=== PATIENT | female | born 1940 | race Caucasian/White ===

== ENCOUNTER 2018-05-23 12:57 | Emergency (ER) | payer MEDICARE ==
[~2018-05-23] VITALS: Ht 157.5 cm; Wt 73.0 kg
[~2018-05-23 12:57] MED LIST: AMLO10TA6 PO; ASPI325T8 PO; FENO134C PO; FURO20TA3 PO; GLIM4TAB2 PO; HYDR-2769 PO; LOSA100T14 PO; LOSARTAN; METO25TA4 PO; SIMV40TA3 PO; TRAM50TA PO; [UNRECOGNIZED DRUG - CODE] SQ
[2018-05-23 13:00] VITALS: BP 208/80
[2018-05-23 14:29] LABS: BILIRUBIN,URINE NEGATIVE (NEG); CLARITY,URINE CLEAR; COLOR,URINE YELLOW; NITRITE,URINE NEGATIVE (NEG); PH,URINE 6.5; PROTEIN,URINE >=300 mg/dL (NEG-TRACE); UROBILINOGEN,URINE 0.2 mg/dL (0.2 mg/dL)
[2018-05-23 14:38] LABS: RBC,URINE OCC /HPF (0-2); WBC,URINE 20-40 /HPF (0-4)
[2018-05-23 14:39] LABS: BACTERIA,URINE MANY /HPF (0-FEW); SQUAMOUS EPITHELIAL CELL,UR FEW /LPF
[2018-05-23] MEDS ORDERED: CEPHALEXIN 250 MG CAPSULE. PO ONE (14:45)
[2018-05-23] MEDS ORDERED: CEPH-264 PO (15:06)
--- NOTE | 2018-05-23 15:06 | PHYS DOC ---
Past Medical History Past Medical History: Diabetes-Type II, Renal Failure, Stroke, Other Additional Past Medical Histor: CATARACTS,CRAINIOTOMY,CYSTASEAL AND RECTAL SEAL ,D&C,STAGE 3 RENAL FAILURE Past Surgical History: Appendectomy, Cholecystectomy, Hysterectomy, Tonsillectomy, Tubal ligation Additional Past Surgical Histo: OVARIAN CYST, LEFT ROTATOR CUFF, LEFT WRIST BROKEN, BILAT CARPEL TUNNEL Alcohol Use: None Drug Use: None Adult General Chief Complaint Chief Complaint: MECHANICAL FALL HPI HPI Patient is a 77 year old [f__sex] who presents with [] Review of Systems Review of Systems Constitutional: Denies fever or chills [] Eyes: Denies change in visual acuity, redness, or eye pain [] HENT: Denies nasal congestion or sore throat [] Respiratory: Denies cough or shortness of breath [] Cardiovascular: No additional information not addressed in HPI [] GI: Denies abdominal pain, nausea, vomiting, bloody stools or diarrhea [] : Denies dysuria or hematuria [] Musculoskeletal: Denies back pain or joint pain [] Integument: Denies rash or skin lesions [] Neurologic: Denies headache, focal weakness or sensory changes [] Endocrine: Denies polyuria or polydipsia [] All other systems were reviewed and found to be within normal limits, except as documented in this note. Current Medications Current Medications Current Medications Medications (Trade) Dose Ordered Sig/Fredrick Start Time Stop Time Status Last Admin Dose Admin Cephalexin HCl (Keflex) 500 mg 1X ONCE 05/23/18 14:45 05/23/18 14:46 DC Allergies Allergies Allergies Coded Allergies Type Severity Reaction Last Updated Verified KATIE Inhibitors Allergy Severe ANAPHYLATIC SHOCK 11/20/14 Yes cyclosporine Allergy Intermediate Hives 11/21/14 Yes indomethacin Allergy Mild 11/20/14 Yes Physical Exam Physical Exam Constitutional: Well developed, well nourished, no acute distress, non-toxic appearance. [] HENT: Normocephalic, atraumatic, bilateral external ears normal, oropharynx moist, no oral exudates, nose normal. [] Eyes: PERRLA, EOMI, conjunctiva normal, no discharge. [] Neck: Normal range of motion, no tenderness, supple, no stridor. [] Cardiovascular:Heart rate regular rhythm, no murmur [] Lungs & Thorax: Bilateral breath sounds clear to auscultation [] Abdomen: Bowel sounds normal, soft, no tenderness, no masses, no pulsatile masses. [] Skin: Warm, dry, no erythema, no rash. [] Back: No tenderness, no CVA tenderness. [] Extremities: No tenderness, no cyanosis, no clubbing, ROM intact, no edema. [] Neurologic: Alert and oriented X 3, normal motor function, normal sensory function, no focal deficits noted. [] Psychologic: Affect normal, judgement normal, mood normal. [] Current Patient Data Vital Signs Vital Signs Date Time Temp Pulse Resp B/P (MAP) Pulse Ox O2 Delivery O2 Flow Rate FiO2 05/23/18 13:00 98.7 83 16 208/80 (122) 95 Room Air 98.7 Lab Values Laboratory Tests Test 05/23/18 14:00 Urine Collection Type Void Urine Color Yellow Urine Clarity Clear Urine pH 6.5 Urine Specific [place] 1.020 Urine Protein >=300 mg/dL (NEG-TRACE) Urine Glucose (UA) Negative mg/dL (NEG) Urine Ketones (Stick) Negative mg/dL (NEG) Urine Blood Trace (NEG) Urine Nitrite Negative (NEG) Urine Bilirubin Negative (NEG) Urine Urobilinogen Dipstick 0.2 mg/dL (0.2 mg/dL) Urine Leukocyte Esterase Small (NEG) Urine RBC Occ /HPF (0-2) Urine WBC 20-40 /HPF (0-4) Urine Squamous Epithelial Cells Few /LPF Urine Bacteria Many /HPF (0-FEW) EKG EKG [] Radiology/Procedures Radiology/Procedures [] Course & Med Decision Making Course & Med Decision Making Pertinent Labs and Imaging studies reviewed. (See chart for details) [] Dragon Disclaimer Dragon Disclaimer This electronic medical record was generated, in whole or in part, using a voice recognition dictation system. Departure Departure Impression: Primary Impression: Hematoma of scalp Additional Impression: UTI (urinary tract infection) Disposition: 01 HOME, SELF-CARE Condition: STABLE Referrals: MARTHA KELLOGG MD (PCP) Patient Instructions: Fall Prevention and Home Safety, Cmas-li-Zwen, Scalp Hematoma, Urinary Tract Infection, Oujf-lh-Yljs Scripts Cephalexin (KEFLEX) 500 Mg Capsule 500 MG PO BID for 7 Days, #14 CAP Prov: JULIANNE PHOENIX DO 05/23/18 Problem Qualifiers Primary Impression: Hematoma of scalp Encounter type: initial encounter Qualified Codes: S00.03XA - Contusion of scalp, initial encounter Additional Impression: UTI (urinary tract infection) Urinary tract infection type: acute cystitis Hematuria presence: without hematuria Qualified Codes: N30.00 - Acute cystitis without hematuria JULIANNE PHOENIX DO May 23, 2018 15:06
--- NOTE | 2018-05-23 15:07 | RAD ---
CT HEAD AND CERVICAL SPINE WO Indication: PAIN S/P FALL, RT FOREARM CONTUSION Exposure: One or more of the following individualized dose reduction techniques were utilized for this examination: 1. Automated exposure control 2. Adjustment of the mA and/or kV according to patient size 3. Use of iterative reconstruction technique. Comparison: 10/08/2006. Contrast: None HEAD: Posterior fossa is unremarkable. No evidence of acute intracranial hemorrhage or abnormal extra-axial fluid collection. No evidence of mass effect or midline shift. Low-density in the white matter bilaterally, a nonspecific finding, but which is commonly due to chronic small vessel ischemic disease in a patient of this age. Prominence of ventricles and sulci, compatible with involutional change or atrophy. Intracranial arterial calcifications are identified. There is more focal hypoattenuation in the left occipital lobe and the right frontal lobe likely due to encephalomalacia or old infarct, also seen on prior exam. The lens of the left orbit is an abnormal position, appears to be located at the posterior dependent orbit, could indicate gdetachment and displacement. This was not apparent on the prior study of 10/08/2006. Visualized paranasal sinuses and mastoids are clear. No evidence of depressed skull fracture. There is an apparent craniotomy at the posterior occipital bone. There is scalp density and swelling in the right frontal region compatible with a hematoma. Impression: 1. 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 2. Chronic intracranial findings are again seen. 3. No evidence of acute intracranial hemorrhage. 4. Right frontal scalp hematoma. CERVICAL SPINE: The about the distal aspect of C5. C1 ring: Defect at the posterior ring, presumably postsurgical. Cervico-occipital junction: Intact C1-C2 relationship: Within normal limits Fracture: No acute fracture identified. Spondylosis: Degenerative spondylosis with osteophytes. There is neural foraminal stenosis bilaterally, severe at some levels. There is also at least sfjz-bh-[id number] spinal canal stenosis. Alignment: No significant vertebral body subluxation. Facets: No evidence of perched or locked facet. Prevertebral soft tissues: There is a large heterogeneous mass anterior to the cervical spine, to the left of the trachea, only included in the [id number]. This is also apparent on a prior CT neck exam of February 24, 2008. Difficult to compare without prior study for difference in size. The airway is deviated toward the right Lung apices: Clear Impression: 1. Severe degenerative spondylosis. 2. No evidence of acute fracture or subluxation. 3. Large prevertebral and paratracheal mass is partially visualized, was also present to some degree on CT neck of February 24, 2008. This could be arising from the thyroid. 4. Segment of catheter within the cervical spinal canal, was also present on prior CT neck of February 24, 2008. Electronically signed by: Akshat Ham MD (05/23/2018 3:03 PM) [facility]
[2018-05-23] MEDS ORDERED: HYDROcodone/APAP 5/325MG 1 TAB TABLET PO ONE (15:30)
[2018-05-24] MEDS ORDERED: TRAZ150T49 PO (11:28)
[2018-05-24] MEDS ORDERED: CHOL10003 PO (11:28)
[2018-05-24] MEDS ORDERED: LINA5TAB PO (11:28)
[2018-05-24] MEDS ORDERED: ASPI325T11 PO (11:28)
[2018-05-24] MEDS ORDERED: INSU100V13 SQ (11:28)
== END 2018-05-23 15:48 | disposition home or self-care (01) ==
LOC: ER 12:57
DX: S00.03XA Contusion of scalp, initial encounter (principal); N30.00 Acute cystitis without hematuria; E11.22 Type 2 diabetes mellitus with diabetic chronic kidney disease; N18.3 Chronic kidney disease, stage 3 (moderate); Z90.49 Acquired absence of other specified parts of digestive tract; Z90.710 Acquired absence of both cervix and uterus; Z88.8 Allergy status to other drugs, medicaments and biological substances; W19.XXXA Unspecified fall, initial encounter; Y93.89 Activity, other specified; Y92.89 Other specified places as the place of occurrence of the external cause; Y99.8 Other external cause status
CPT/HCPCS: 70450; 72125; 81001; 87086; 99284

== ENCOUNTER 2019-02-11 11:20 | Inpatient (IN) | payer MEDICARE, MEDICAID ==
[~2019-02-11] VITALS: Ht 154.9 cm; Wt 76.2 kg
[2019-02-11] VITALS (24 sets, daily range): BP systolic 80–137; BP diastolic 42–75
[~2019-02-11 11:20] MED LIST changes: -AMLO10TA6 PO; +AMLO10TA8 PO; +ASPI325T11 PO; +BENZ-8 PO; +CEPH-264 PO; +CHOL10003 PO; +FERR325T72 PO; +INSU100V13 SQ; +LINA5TAB PO; +TRAZ150T49 PO
--- NOTE | 2019-02-11 11:56 | PHYS DOC ---
Past Medical History Past Medical History: Diabetes-Type II, Renal Failure, Stroke, Other Additional Past Medical Histor: CATARACTS,CRAINIOTOMY,CYSTYLE AND RECTACYLE,D&C,STAGE 3 RENAL FAILURE Past Surgical History: Appendectomy, Cholecystectomy, Hysterectomy, Tonsillectomy, Tubal ligation Additional Past Surgical Histo: OVARIAN CYST, LEFT ROTATOR CUFF, LEFT WRIST BROKEN, BILAT CARPEL TUNNEL Alcohol Use: None Drug Use: None Adult General Chief Complaint Chief Complaint: shortness of breath HPI HPI Patient is a 78 year old [place] [facility] on 2 L constant oxygen who presents via EMS because of shortness of breath and hypoxia. Patient had cough and shortness of breath for the last several days and treated for pneumonia jail worsening her condition since last night. Patient had O2 sat of 60% on 5 L of oxygen at arrival of EMS and complaining of shortness of breath. Patient was started on CPAP and brought in to ER. Patient was very pale at arrival to ER without pulse and CPR was started about 1121 at arrival to ER. Review of Systems Review of Systems Unable to obtain because of CPR in progress Current Medications Current Medications Allergies Allergies Allergies Coded Allergies Type Severity Reaction Last Updated Verified KATIE Inhibitors Allergy Severe ANAPHYLATIC SHOCK 11/20/14 Yes cyclosporine Allergy Intermediate Hives 11/21/14 Yes indomethacin Allergy Intermediate 05/24/18 Yes Physical Exam Physical Exam Constitutional: Unresponsive CPR in progress HENT: Atraumatic. Eyes: pupil without reaction. Neck: Atraumatic Cardiovascular: CPR in progress, no spontaneous cardiac activity without CPR Lungs & Thorax: No spontaneous respiration. Abdomen:Atraumatic. Extremities: Atraumatic, no spontaneous pulses without CPR Neurologic: Unresponsive. Psychologic: Unresponsive. Current Patient Data Vital Signs Lab Values Laboratory Tests Test 02/11/19 11:29 Glucose (Fingerstick) 282 mg/dL (70-99) H EKG EKG EKG at 1141 after successful CPR showed sinus tachycardia at rate of 1:30, abnormal left axis deviation, left anterior fascicular block, right bundle- branch block, LVH, inverted T in lateral leads that is new compared to EKG alvaro ed 05/24/2018 Radiology/Procedures Radiology/Procedures [][facility] [address] [place], [place] [id number] IMAGING REPORT Signed PATIENT: BEN MILLER David ACCOUNT: [id number] : 1940 LOCATION: ER AGE: 78 SEX: F EXAM STATUS: REG ER ORD. PHYSICIAN: BETINA SAMAYOA MD REASON: cardiorespiratory arrest PROCEDURE: PORTABLE CHEST 1V Indication:Cardiorespiratory arrest. TECHNIQUE:Portable AP chest X-ray COMPARISON: 05/26/2018. FINDINGS: ET tube is seen with its tip in the proximal right mainstem bronchus. NG tube is seen with its tip not visualized presumably in the stomach. Heart is normal in size. Diffuse interstitial opacities are seen. There opacity seen in the right upper lobe and right perihilar lung. No pneumothorax or large pleural effusion. Visualized bony thorax within normal limits. IMPRESSION: 1. Tip of the ET tube is in the right mainstem bronchus and should be withdrawn by approximately 4 cm. 2. Opacities in the right upper lobe and right perihilar lung may be secondary to pneumonia, aspiration or atelectasis. 3. Interstitial opacities diffusely suggest tissue pulmonary edema. Critical findings were identified on 02/11/2019 12:06 PM, read back and verified with Dr. Samayoa on 02/11/2019 12:[address] David Martinez DO. Electronically signed by: David Martinez DO (02/11/2019 12:09 PM) [facility] DICTATED and SIGNED BY: DAVID MARTINEZ DO DATE: 02/11/19 120 Course & Med Decision Making Course & Med Decision Making Pertinent Labs and Imaging studies reviewed. (See chart for details) Evaluation of patient in ER showed 78-year-old female patient from jail on 2 L of oxygen and complaint diagnosis of pneumonia on antibiotic brought in by EMS at 1121 because of hypoxia and respiratory distress. Patient was pulseless at arrival to ER and CPR was restarted. Patient had DNR form according to EMR. Patient's daughter who has DPOA was in ER at arrival of patient and requesting continue CPR for couple more minutes without intubation in several time with checking with her. Patient did not have a spontaneous pulse without CPR and treated with 3 doses of epinephrine and chest compression and facial mask with bagging and finally was intubated at 1135 and had pulse at 1137. Patient treated with IV fluids and antibiotic for code sepsis. Patient had gradual decrease of heart disease from 130 to 70s with a stable blood pressure. Patient started to have respiration activity and Versed drip was started. CT angio of chest and head ct was postponed because of medical condition.Patient requiring admission for further evaluation and treatment. Discussed with Dr. Christine who is in agreement with admission. Discussed findings and plan with patient and family, who acknowledge understanding and agreement. Dragon Disclaimer Dragon Disclaimer This electronic medical record was generated, in whole or in part, using a voice recognition dictation system. Departure Departure Impression: Primary Impression: Cardiorespiratory arrest Additional Impressions: Severe sepsis HCAP (healthcare-associated pneumonia) Pulmonary edema Renal insufficiency Uncontrolled diabetes mellitus Metabolic acidosis with respiratory acidosis Anemia Hypoalbuminemia Elevated troponin I level Disposition: ADMITTED INPATIENT (at 1153) Admitting Physician: SEFERINO (Dr Christine accepted admission at 1152) Condition: CRITICAL Referrals: MARTHA KELLOGG MD (PCP) Critical Care Time Critical care time was 90 minutes exclusive of procedures. Date and Time of Reassessment Date: Feb 11, 2019 Time: 13:09 Fluid Challenge Is the fluid challenge complet: Yes IBW Target Volume Used: Yes BMI > 30: No Vital Signs Vital Signs: Temperature Source: Rectal Respirations Respiratory Pattern: Normal Cardiovascular Pulse Rhythm: Regular Heart: Nml rate, reg. rhythm Lung Sounds Breath Sounds: Coarse, Rhonchi Capillary Refil Capillary Refill: Rt Hand < 3 seconds Peripheral Pulse Pulse Location: Femoral Pulse Strength: Normal (2+) Pulse Assessment Method: NIBP Intubation Procedure Intubation Procedure Intub Indication: Respiratory failure Consent: Unable to give consent due to emergent nature. Medications Used: see nursing note Procedure: The patient was placed in the appropriate position. Intubation was performed visualization of vocal cord and 7.5 ET tube was placed at 1135 and placement was confirmed with change of color of CO2 detector and bilateral chest rise tube was secured with device.. Initial confirmation of placement included bilateral breath sounds, tube fogging, adequate chest rise, adequate pulse oximetry reading. A chest x-ray to verify correct placement of the tube showed ET tube in right bronchus and it was removed 3 cm without problem.The patient tolerated the procedure well. Complications: none. Problem Qualifiers Additional Impressions: Pulmonary edema Chronicity: acute Qualified Codes: J81.0 - Acute pulmonary edema Uncontrolled diabetes mellitus Diabetes mellitus type: other specified (including RUTH) Glycemic state: with hyperglycemia Qualified Codes: E13.65 - Other specified diabetes mellitus with hyperglycemia Anemia Anemia type: unspecified type Qualified Codes: D64.9 - Anemia, unspecified BETINA SAMAYOA MD Feb 11, 2019 11:56
[2019-02-11 12:00] LABS: BASO # 0.1 x10^3/uL (0.0-0.2); BASO % 1 % (0-3); EOS # 0.2 x10^3/uL (0.0-0.7); EOS % 2 % (0-3); HEMATOCRIT 33.6 % (36.0-47.0); HEMOGLOBIN 10.3 g/dL (12.0-15.5); LYMPH # 4.4 x10^3/uL (1.0-4.8); LYMPH % 40 % (24-48); MEAN CORPUSCULAR HEMOGLOBIN 29 pg (25-35); MEAN CORPUSCULAR HGB CONC 31 g/dL (31-37); MEAN CORPUSCULAR VOLUME 94 fL (79-100); MONO # 0.4 x10^3/uL (0.0-1.1); MONO % 3 % (0-9); NEUT # 5.9 x10^3/uL (1.8-7.7); NEUT % 54 % (31-73); PLATELET COUNT 253 x10^3/uL (140-400); RED CELL DISTRIBUTION WIDTH 15.4 % (11.5-14.5)
[2019-02-11] MEDS ORDERED: MIDAZOLAM 100mg/100ml NS BAG 100 ML IV ONE (12:00)
[2019-02-11] MEDS: VANCOMYCIN 1.5 GM in IV NORMAL SALINE 500ML BAG 500 ML IV ONE ×2 (12:05→13:05)
[2019-02-11 12:07] LABS: CALCIUM 8.7 mg/dL (8.5-10.1); CREATININE 2.2 mg/dL (0.6-1.0); GFR 21.7; POTASSIUM 4.4 mmol/L (3.5-5.1); PROTHROMBIN TIME PATIENT 15.1 SEC (11.7-14.0)
[2019-02-11 12:09] LABS: BASE EXCESS ABG -18 mmol/L (-3-3); HCO3 ABG 13 mmol/L (21-28); PCO2 ABG 50 mmHg (35-46); PO2 ABG 234 mmHg (65-108); SAT O2 ABG 99 % (92-99)
--- NOTE | 2019-02-11 12:12 | RAD ---
Indication:Cardiorespiratory arrest. TECHNIQUE:Portable AP chest X-ray COMPARISON: 05/26/2018. FINDINGS: ET tube is seen with its tip in the proximal right mainstem bronchus. NG tube is seen with its tip not visualized presumably in the stomach. Heart is normal in size. Diffuse interstitial opacities are seen. There opacity seen in the right upper lobe and right perihilar lung. No pneumothorax or large pleural effusion. Visualized bony thorax within normal limits. IMPRESSION: 1. Tip of the ET tube is in the right mainstem bronchus and should be withdrawn by approximately 4 cm. 2. Opacities in the right upper lobe and right perihilar lung may be secondary to pneumonia, aspiration or atelectasis. 3. Interstitial opacities diffusely suggest tissue pulmonary edema. Critical findings were identified on 02/11/2019 12:06 PM, read back and verified with Dr. Lechuga on 02/11/2019 12:[address] David Martinez DO. Electronically signed by: David Martinez DO (02/11/2019 12:09 PM) [facility]
[2019-02-11 12:13] LABS: ALBUMIN 2.8 g/dL (3.4-5.0); ALBUMIN/GLOBULIN RATIO 0.8 (1.0-1.7); MAGNESIUM 2.3 mg/dL (1.8-2.4); TOTAL BILIRUBIN 0.3 mg/dL (0.2-1.0); TOTAL PROTEIN 6.3 g/dL (6.4-8.2)
[2019-02-11] MEDS ORDERED: SODIUM BICARB ADULT 8.4% 50 MEQ/50 ML DISP.SYRIN. IV ONE (12:15)
[2019-02-11] MEDS ORDERED: IV NORMAL SALINE 1000ML BAG 1,000 ML IV ONE ×2 (12:15)
[2019-02-11 12:16] LABS: D-DIMER 3.82 ug/mlFEU (0.00-0.50)
[2019-02-11] MEDS ORDERED: IV NORMAL SALINE 1000ML BAG 1,000 ML IV SCH (12:23)
[2019-02-11 12:29] LABS: FIO2 ABG 100
[2019-02-11] MEDS ORDERED: PIPERACILLIN/TAZOBACTAM 3.375 GM in IV NORMAL SALINE 50ML 50 ML IV ONE (12:30)
[2019-02-11] MEDS: IV NORMAL SALINE 1000ML BAG 1,000 ML IV ONE ×2 (12:45→13:54)
--- NOTE | 2019-02-11 13:10 | PDOC1 ---
History and Physical Date of Admission Date of Admission DATE: 02/11/19 TIME: 13:03 Identification/Chief Complaint Chief Complaint Post arrest Source Source: Caregiver, Chart review History of Present Illness History of Present Illness Ms Pierre is a 78yo F w/ PMHx CKD3, DM2, HTN, H/o prior stroke, anemia, legally blind who presented to ED with acute hypoxia and en-route was found pulseless with PEA on her initial rhythm strip. Patient had O2 sat of 60% on 5 L of oxygen at arrival of EMS and had been complaining of shortness of breath at SNF. Patient was started on CPAP en-route by EMS. Patient was very pale at arrival to ED without pulse and CPR was started about 1121 at arrival to ER. (transit time prior to arrival was approximately 10 minutes). Per SNF she is full code and her daughter instructed ED to begin CPR and after CPR and 3 rounds of epinephrine there was ROSC and patient underwent intubation in ED. 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 Patient treated with IV fluids and antibiotic for sepsis. Patient started to have respiration activity and Versed drip was started. CT angio of chest and head CT was initially postponed because of medical condition. Initial ABG was 7.01/50/239, lactate 8.3. Trop 0.107, BNP 59938, INR 1.2, d dimer 3.82. Hb 10.3, no leukocytosis. Cr. 2.2, BUN 28, glucose 390. CXR with RUL infiltrate and pulmonary edema. Discussed bedside with daughter, Samia patient is full code and to initiate hypothermia protocol. I supervised RIJ CVC placement by WORD PROCESSOR OPERATOR. Past Medical History Cardiovascular: HTN, Hyperlipidemia Pulmonary: No pertinent hx CENTRAL NERVOUS SYSTEM: CVA, TIA GI: No pertinent hx Heme/Onc: No pertinent hx Hepatobiliary: No pertinent hx Psych: No pertinent hx Rheumatologic: No pertinent hx Infectious disease: No pertinent hx Renal/: No pertinent hx Endocrine: Diabetes, Other Past Surgical History Past Surgical History: Appendectomy, Arthroscopy, Cholecystectomy, Cataract Removal, Total knee replacement, Tubal Ligation, Tonsillectomy, Hysterectomy, Other Family History Family History: Heart Disease Social History Smoke: No ALCOHOL: none Drugs: None Current Problem List Problem List Problems Medical Problems: (1) Cardiorespiratory arrest Status: Acute Current Medications Current Medications Current Medications Midazolam HCl 100 ml @ 0 mls/hr 1X ONCE IV Last administered on 02/11/19at 12:24; Start 02/11/19 at 12:00; Stop 02/11/19 at 12:01; Status DC Sodium Bicarbonate (Sodium Bicarb Adult 8.4% Syr) 100 meq 1X ONCE IV Last administered on 02/11/19at 12:24; Start 02/11/19 at 12:15; Stop 02/11/19 at 12:22; Status DC Piperacillin Sod/ Tazobactam Sod 3.375 gm/Sodium Chloride 50 ml @ 100 mls/hr 1X ONCE IV ; Start 02/11/19 at 12:30; Stop 02/11/19 at 12:59; Status DC Vancomycin HCl 1.5 gm/Sodium Chloride 500 ml @ 250 mls/hr 1X ONCE IV ; Start 02/11/19 at 12:30; Stop 02/11/19 at 14:29 Sodium Chloride 1,000 ml @ 1,000 mls/hr 1X ONCE IV Last administered on 02/11/19at 12:29; Start 02/11/19 at 12:15; Stop 02/11/19 at 13:14 Sodium Chloride 1,000 ml @ 1,000 mls/hr 1X ONCE IV Last administered on 02/11/19at 12:29; Start 02/11/19 at 12:15; Stop 02/11/19 at 13:14 Sodium Chloride 1,000 ml @ 150 mls/hr Q6H40M IV ; Start 02/11/19 at 12:23; Stop 02/12/19 at 12:22 Sodium Chloride 1,000 ml @ 1,000 mls/hr 1X ONCE IV ; Start 02/11/19 at 12:45; Stop 02/11/19 at 13:44 Active Scripts Active Feosol (Ferrous Sulfate) 325 Mg Tablet 325 Mg PO [id number] 30 Days Benzonatate 100 Mg Capsule 100 Mg PO [id number] 7 Days Amlodipine Besylate 10 Mg Tablet 10 Mg PO DAILY 30 Days Reported Tradjenta (Linagliptin) 5 Mg Tablet 5 Mg PO DAILY Vitamin D3 (Cholecalciferol (Vitamin D3)) 1,000 Unit Tablet 1 Tab PO DAILY Trazodone Hcl 150 Mg Tablet 150 Mg PO HS Aspirin Ec (Aspirin) 325 Mg Tablet.dr 1 Tab PO DAILY Metoprolol Tartrate 25 Mg Tablet 1 Tab PO BID NEW MEDICATION BEGINNING 11/21/2014 PM DOSE MONITOR BLOOD PRESSURE DAILY Losartan Potassium 100 Mg Tablet 1 Tab PO DAILY Simvastatin 40 Mg Tablet 40 Mg PO DAILY Hydrocodone-Apap 10-325 (Hydrocodone Bit/Acetaminophen) 1 Each Tablet 1 Tab PO Q8HRS PRN Allergies Allergies: Coded Allergies: KATIE Inhibitors (Verified Allergy, Severe, ANAPHYLATIC SHOCK, 11/20/14) cyclosporine (Verified Allergy, Intermediate, Hives, 11/21/14) indomethacin (Verified Allergy, Intermediate, 05/24/18) ROS Review of System Unable to obtain ROS due to intubation, sedation Physical Exam General: No acute distress, Other (Sedated, intubated) HEENT: Atraumatic, PERRLA (Pupils sluggish), EOMI, Mucous membr. moist/pink, Other (Positive gag) Lungs: Other (Rhonchi on right, bibasilar crackles, otherwise ventilatory b reath sounds) Heart: S1S2, RRR, no gallops, no murmurs Abdomen: Normal bowel sounds, Soft, No tenderness, No hepatosplenomegaly, No masses Rectal Exam: not examined Extremities: No clubbing, No cyanosis, No edema, Normal pulses, No tenderness/swelling Skin: No rashes, No breakdown, No significant lesion Neuro: Normal tone, Reflexes 2+ Psych/Mental Status: Other (Sedated) Vitals Vitals Vital Signs Date Time Temp Pulse Resp B/P (MAP) Pulse Ox O2 Delivery O2 Flow Rate FiO2 02/11/19 12:04 95.9 120 100 Bag Valve Mask 95.9 Labs Labs Laboratory Tests Test 02/11/19 11:29 02/11/19 11:50 02/11/19 12:00 Glucose (Fingerstick) 282 mg/dL (70-99) White Blood Count 11.0 x10^3/uL (4.0-11.0) Red Blood Count 3.60 x10^6/uL (3.50-5.40) Hemoglobin 10.3 g/dL (12.0-15.5) Hematocrit 33.6 % (36.0-47.0) Mean Corpuscular Volume 94 fL (79-100) Mean Corpuscular Hemoglobin 29 pg (25-35) Mean Corpuscular Hemoglobin Concent 31 g/dL (31-37) Red Cell Distribution Width 15.4 % (11.5-14.5) Platelet Count 253 x10^3/uL (140-400) Neutrophils (%) (Auto) 54 % (31-73) Lymphocytes (%) (Auto) 40 % (24-48) Monocytes (%) (Auto) 3 % (0-9) Eosinophils (%) (Auto) 2 % (0-3) Basophils (%) (Auto) 1 % (0-3) Neutrophils # (Auto) 5.9 x10^3/uL (1.8-7.7) Lymphocytes # (Auto) 4.4 x10^3/uL (1.0-4.8) Monocytes # (Auto) 0.4 x10^3/uL (0.0-1.1) Eosinophils # (Auto) 0.2 x10^3/uL (0.0-0.7) Basophils # (Auto) 0.1 x10^3/uL (0.0-0.2) Prothrombin Time 15.1 SEC (11.7-14.0) Prothromb Time International Ratio 1.2 (0.8-1.1) D-Dimer (Pam) 3.82 ug/mlFEU (0.00-0.50) Sodium Level 141 mmol/L (136-145) Potassium Level 4.4 mmol/L (3.5-5.1) Chloride Level 108 mmol/L (98-107) Carbon Dioxide Level 17 mmol/L (21-32) Anion Gap 16 (6-14) Blood Urea Nitrogen 28 mg/dL (7-20) Creatinine 2.2 mg/dL (0.6-1.0) Estimated GFR (Cockcroft-Gault) 21.7 BUN/Creatinine Ratio 13 (6-20) Glucose Level 390 mg/dL (70-99) Lactic Acid Level 8.3 mmol/L (0.4-2.0) Calcium Level 8.7 mg/dL (8.5-10.1) Magnesium Level 2.3 mg/dL (1.8-2.4) Total Bilirubin 0.3 mg/dL (0.2-1.0) Aspartate Amino Transf (AST/SGOT) 46 U/L (15-37) Alanine Aminotransferase (ALT/SGPT) 33 U/L (14-59) Alkaline Phosphatase 136 U/L (46-116) Creatine Kinase 99 U/L (26-192) Troponin I Quantitative 0.107 ng/mL (0.000-0.055) AD-Jyz-A-Type Natriuretic Peptide 39787 pg/mL (0-449) Total Protein 6.3 g/dL (6.4-8.2) Albumin 2.8 g/dL (3.4-5.0) Albumin/Globulin Ratio 0.8 (1.0-1.7) Lipase 168 U/L (73-393) O2 Saturation 99 % (92-99) Arterial Blood pH 7.01 (7.35-7.45) Arterial Blood pCO2 at Patient Temp 50 mmHg (35-46) Arterial Blood pO2 at Patient Temp 234 mmHg (65-108) Arterial Blood HCO3 13 mmol/L (21-28) Arterial Blood Base Excess -18 mmol/L (-3-3) FiO2 100 Laboratory Tests Test 02/11/19 11:29 02/11/19 11:50 02/11/19 12:00 Glucose (Fingerstick) 282 mg/dL (70-99) White Blood Count 11.0 x10^3/uL (4.0-11.0) Red Blood Count 3.60 x10^6/uL (3.50-5.40) Hemoglobin 10.3 g/dL (12.0-15.5) Hematocrit 33.6 % (36.0-47.0) Mean Corpuscular Volume 94 fL (79-100) Mean Corpuscular Hemoglobin 29 pg (25-35) Mean Corpuscular Hemoglobin Concent 31 g/dL (31-37) Red Cell Distribution Width 15.4 % (11.5-14.5) Platelet Count 253 x10^3/uL (140-400) Neutrophils (%) (Auto) 54 % (31-73) Lymphocytes (%) (Auto) 40 % (24-48) Monocytes (%) (Auto) 3 % (0-9) Eosinophils (%) (Auto) 2 % (0-3) Basophils (%) (Auto) 1 % (0-3) Neutrophils # (Auto) 5.9 x10^3/uL (1.8-7.7) Lymphocytes # (Auto) 4.4 x10^3/uL (1.0-4.8) Monocytes # (Auto) 0.4 x10^3/uL (0.0-1.1) Eosinophils # (Auto) 0.2 x10^3/uL (0.0-0.7) Basophils # (Auto) 0.1 x10^3/uL (0.0-0.2) Prothrombin Time 15.1 SEC (11.7-14.0) Prothromb Time International Ratio 1.2 (0.8-1.1) D-Dimer (Pam) 3.82 ug/mlFEU (0.00-0.50) Sodium Level 141 mmol/L (136-145) Potassium Level 4.4 mmol/L (3.5-5.1) Chloride Level 108 mmol/L (98-107) Carbon Dioxide Level 17 mmol/L (21-32) Anion Gap 16 (6-14) Blood Urea Nitrogen 28 mg/dL (7-20) Creatinine 2.2 mg/dL (0.6-1.0) Estimated GFR (Cockcroft-Gault) 21.7 BUN/Creatinine Ratio 13 (6-20) Glucose Level 390 mg/dL (70-99) Lactic Acid Level 8.3 mmol/L (0.4-2.0) Calcium Level 8.7 mg/dL (8.5-10.1) Magnesium Level 2.3 mg/dL (1.8-2.4) Total Bilirubin 0.3 mg/dL (0.2-1.0) Aspartate Amino Transf (AST/SGOT) 46 U/L (15-37) Alanine Aminotransferase (ALT/SGPT) 33 U/L (14-59) Alkaline Phosphatase 136 U/L (46-116) Creatine Kinase 99 U/L (26-192) Troponin I Quantitative 0.107 ng/mL (0.000-0.055) EP-Llx-H-Type Natriuretic Peptide 13545 pg/mL (0-449) Total Protein 6.3 g/dL (6.4-8.2) Albumin 2.8 g/dL (3.4-5.0) Albumin/Globulin Ratio 0.8 (1.0-1.7) Lipase 168 U/L (73-393) O2 Saturation 99 % (92-99) Arterial Blood pH 7.01 (7.35-7.45) Arterial Blood pCO2 at Patient Temp 50 mmHg (35-46) Arterial Blood pO2 at Patient Temp 234 mmHg (65-108) Arterial Blood HCO3 13 mmol/L (21-28) Arterial Blood Base Excess -18 mmol/L (-3-3) FiO2 [address] - No pathologic extra-axial or intra-axial fluid collection. Stable encephalomalacia in the left cerebellar hemisphere with compensatory dilation of the occipital horn of the left lateral ventricle. Stable encephalomalacia in the right frontal lobe likely old infarct. No acute intracranial bleed. Suboccipital craniotomy noted. No focal loss of pearson-white differentiation. Orbits are within normal limits. No suspicious calvarial lesion. Visualized paranasal sinuses and mastoid air cells are clear. IMPRESSION: 1. No acute intracranial bleed. 2. Stable encephalomalacia likely from prior infarct in the left cerebellar hemisphere and right frontal lobe. If concern for acute ischemic stroke is high, please consider MRI brain. CXR - 1. Tip of the ET tube is in the right mainstem bronchus and should be withdrawn by approximately 4 cm. 2. Opacities in the right upper lobe and right perihilar lung may be secondary to pneumonia, aspiration or atelectasis. 3. Interstitial opacities diffusely suggest tissue pulmonary edema. VTE Prophylaxis Ordered VTE Prophylaxis Devices: Yes VTE Pharmacological Prophylaxi: Yes Assessment/Plan Assessment/Plan A/P: Cardiorespiratory arrest - s/p CPR and 3 rounds epinephrine. Likely this was a hypoxic arrest based on history, though PE has not been ruled out. Will d/w pulmonology the utility of further investigation. Treat pneumonia as well Severe sepsis - likely 2/2 HCAP with right sided pneumonia, patient already under treatment. Received 2L NSS in ED. Will bolus with albumin prn to avoid fluid overload. Levophed for BP support, central line in place HCAP (healthcare-associated pneumonia) - vancomycin and zosyn for now, will consult pharmacy given her CKD Acute hypoxic respiratory failure - likely 2/2 pneumonia. Will consult pulmonology to assist in vent management. HOLD OFF ON FURTHER IVF for now Pulmonary edema - likely from CPR, will monitor with serial chest x-ray. 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 Known to nephrology service Metabolic acidosis with respiratory acidosis - PCO2 50 not bad, will correct with vent, her metabolic likely 2/2 lactic acidosis from prolonged hypoxia en- route and prior to admit Elevated troponin I level - likely demand 2/2 hypoxia, will trend. Consulted cardiology for post arrest Acute metabolic encephalopathy - likely also some toxic from sepsis. She will be sedated on hypothermia protocol, I have informed family that no meaningful neuro exam will be available until she completes the protocol DM2 with hyperglycemia - will place on q4 hours POC and sliding scale HTN - likely etiology of her kidney disease, will monitor closely. H/O stroke - left cerebellar encephalomalacia Falls - likely 2/2 blindness. Will have PT/OT evaluate when and if she recovers Legally blind - previously existing Normocytic anemia - iron deficiency per history Moderate malnutrition - Hypoalbuminemia. will need early nutrition FEN - NPO PPX - heparin FULL CODE for now Dispo - ICU for post-arrest care. I have discussed with family in depth as her GCS is low and she did not awaken and she was able to have CT head negative for acute bleed or acute CVA that her overall prognosis is poor and that if they wish to continue care she will require hypothermia protocol. 54 minutes critical care time LAWRENCE SIMPSON MD Feb 11, 2019 13:10
--- NOTE | 2019-02-11 13:30 | RAD ---
PQRS Compliance statement: One or more of the following individualized dose reduction techniques were utilized for this examination: 1. Automated exposure control. 2. Adjustment of the mA and/or kV according to patient size. 3. Use of iterative reconstruction technique. Indication:Cardiac respiratory arrest. TECHNIQUE: CT head without IV contrast COMPARISON: 05/23/2018. FINDINGS: No pathologic extra-axial or intra-axial fluid collection. Stable encephalomalacia in the left cerebellar hemisphere with compensatory dilation of the occipital horn of the left lateral ventricle. Stable encephalomalacia in the right frontal lobe likely old infarct. No acute intracranial bleed. Suboccipital craniotomy noted. No focal loss of pearson-white differentiation. Orbits are within normal limits. No suspicious calvarial lesion. Visualized paranasal sinuses and mastoid air cells are clear. IMPRESSION: 1. No acute intracranial bleed. 2. Stable encephalomalacia likely from prior infarct in the left cerebellar hemisphere and right frontal lobe. If concern for acute ischemic stroke is high, please consider MRI brain. Electronically signed by: Davdi Martinez DO (02/11/2019 1:28 PM) [facility]
[2019-02-11] MEDS ORDERED: NOREPINEPHRIN 8MG/250ML PREMIX 250 ML IV PRN (13:45)
[2019-02-11] MEDS ORDERED: VASOPRESSIN 40 UNIT in IV DEXTROSE 5% 100ML 100 ML IV PRN (13:45)
[2019-02-11] MEDS ORDERED: EPINEPHrine SYRINGE 1 MG/10 ML SYRINGE ONE (14:00)
[2019-02-11] MEDS ORDERED: SODIUM BICARB ADULT 8.4% 50 MEQ/50 ML DISP.SYRIN. ONE (14:00)
--- NOTE | 2019-02-11 14:40 | PDOC2 ---
CARDIOLOGY CONSULT NOTE CHEIF COMPLAINT: Cardiac arrest HPI: History obtained mostly from chart review and discussion with other physicians and ER team and nursing 78-year-old woman brought to the ER due to respiratory failure. Upon arrival was noted to have a pulseless electrical activity. She underwent CPR for a prolonged period of time and ultimately return of spontaneous circulation occurred. Micah Nelson was asked to evaluate her for her cardiac arrest Patient was evaluated in May 2018 for atypical chest pain and at that time had a negative echo and my cardial perfusion study. Initial working diagnosis thus far is of a pulmonary etiology possibly due to pneumonia. PMHX: Hypertension, diabetes, CVA Prior history of elevated troponin for which cardiac testing did not reveal any significant ischemia SOCHX: No alcohol, tobacco or illicit drug use. This is per chart review FAMHX: Noncontributory CURRENT MEDS: Current Medications Medications (Trade) Dose Ordered Sig/Fredrick Route PRN Reason Start Time Stop Time Status Last Admin Dose Admin Midazolam HCl 100 ml @ 0 mls/hr 1X ONCE IV 02/11/19 12:00 02/11/19 12:01 DC 02/11/19 12:24 Sodium Bicarbonate (Sodium Bicarb Adult 8.4% Syr) 100 meq 1X ONCE IV 02/11/19 12:15 02/11/19 12:22 DC 02/11/19 12:24 Piperacillin Sod/ Tazobactam Sod 3.375 gm/Sodium Chloride 50 ml @ 100 mls/hr 1X ONCE IV 02/11/19 12:30 02/11/19 12:59 DC 02/11/19 13:50 Vancomycin HCl 1.5 gm/Sodium Chloride 500 ml @ 250 mls/hr 1X ONCE IV 02/11/19 12:30 02/11/19 14:29 02/11/19 13:48 Sodium Chloride 1,000 ml @ 1,000 mls/hr 1X ONCE IV 02/11/19 12:15 02/11/19 13:14 DC 02/11/19 12:29 Sodium Chloride 1,000 ml @ 1,000 mls/hr 1X ONCE IV 02/11/19 12:15 02/11/19 13:14 DC 02/11/19 12:29 Sodium Chloride 1,000 ml @ 150 mls/hr Q6H40M IV 02/11/19 12:23 02/12/19 12:22 02/11/19 13:50 Sodium Chloride 1,000 ml @ 1,000 mls/hr 1X ONCE IV 02/11/19 12:45 02/11/19 13:44 DC 02/11/19 13:54 ALLERGIES: Allergies Coded Allergies Type Severity Reaction Last Updated Verified KATIE Inhibitors Allergy Severe ANAPHYLATIC SHOCK 11/20/14 Yes cyclosporine Allergy Intermediate Hives 11/21/14 Yes indomethacin Allergy Intermediate 05/24/18 Yes ROS: Unable to be obtained due to the patient being intubated PHYSICAL EXAM: Vital Signs/I&O: Vital Signs Date Time Temp Pulse Resp B/P (MAP) Pulse Ox O2 Delivery O2 Flow Rate FiO2 02/11/19 13:35 96 Ventilator 02/11/19 12:04 95.9 120 95.9 Physical Exam: She sedated and nonresponsive Normal heart tones Image breath sounds bilaterally Soft abdomen No edema with 2+ pulses DIAGNOSTIC TESTING: EKG demonstrates sinus tachycardia with PVCs, telemetry reveals sinus rhythm Lactate is elevated at 8.0 She has acute renal sufficiency Minimal troponin elevation noted Echocardiogram and stress testing in May 2018 were unremarkable. Lab Laboratory Tests Test 02/11/19 11:29 02/11/19 11:50 02/11/19 12:00 Glucose (Fingerstick) 282 mg/dL (70-99) H White Blood Count 11.0 x10^3/uL (4.0-11.0) Red Blood Count 3.60 x10^6/uL (3.50-5.40) Hemoglobin 10.3 g/dL (12.0-15.5) L Hematocrit 33.6 % (36.0-47.0) L Mean Corpuscular Volume 94 fL (79-100) Mean Corpuscular Hemoglobin 29 pg (25-35) Mean Corpuscular Hemoglobin Concent 31 g/dL (31-37) Red Cell Distribution Width 15.4 % (11.5-14.5) H Platelet Count 253 x10^3/uL (140-400) Neutrophils (%) (Auto) 54 % (31-73) Lymphocytes (%) (Auto) 40 % (24-48) Monocytes (%) (Auto) 3 % (0-9) Eosinophils (%) (Auto) 2 % (0-3) Basophils (%) (Auto) 1 % (0-3) Neutrophils # (Auto) 5.9 x10^3/uL (1.8-7.7) Lymphocytes # (Auto) 4.4 x10^3/uL (1.0-4.8) Monocytes # (Auto) 0.4 x10^3/uL (0.0-1.1) Eosinophils # (Auto) 0.2 x10^3/uL (0.0-0.7) Basophils # (Auto) 0.1 x10^3/uL (0.0-0.2) Prothrombin Time 15.1 SEC (11.7-14.0) H Prothromb Time International Ratio 1.2 (0.8-1.1) H D-Dimer (Pam) 3.82 ug/mlFEU (0.00-0.50) H Sodium Level 141 mmol/L (136-145) Potassium Level 4.4 mmol/L (3.5-5.1) Chloride Level 108 mmol/L (98-107) H Carbon Dioxide Level 17 mmol/L (21-32) L Anion Gap 16 (6-14) H Blood Urea Nitrogen 28 mg/dL (7-20) H Creatinine 2.2 mg/dL (0.6-1.0) H Estimated GFR (Cockcroft-Gault) 21.7 BUN/Creatinine Ratio 13 (6-20) Glucose Level 390 mg/dL (70-99) H Lactic Acid Level 8.3 mmol/L (0.4-2.0) *H Calcium Level 8.7 mg/dL (8.5-10.1) Total Bilirubin 0.3 mg/dL (0.2-1.0) Aspartate Amino Transf (AST/SGOT) 46 U/L (15-37) H Alkaline Phosphatase 136 U/L (46-116) H Creatine Kinase 99 U/L (26-192) Total Protein 6.3 g/dL (6.4-8.2) L Albumin 2.8 g/dL (3.4-5.0) L Albumin/Globulin Ratio 0.8 (1.0-1.7) L Lipase 168 U/L (73-393) O2 Saturation 99 % (92-99) Arterial Blood pH 7.01 (7.35-7.45) *L Arterial Blood pCO2 at Patient Temp 50 mmHg (35-46) H Arterial Blood pO2 at Patient Temp 234 mmHg (65-108) H Arterial Blood HCO3 13 mmol/L (21-28) L Arterial Blood Base Excess -18 mmol/L (-3-3) L FiO2 100 Laboratory Tests 02/11/19 11:50 ASSESSMENT: 1. Cardiac arrest likely secondary to hypoxia in the setting of pneumonia and/or other pulmonary etiology 2. Hypertension currently without any need for pressors or antihypertensives 3. History of hypertension and CVA and diabetes PLAN: 1. Supportive care from a cardiac standpoint. No further cardiac testing necessary at this time except for a routine echocardiogram to evaluate for LV function to help delineate further treatment strategies I do not suspect a primary cardiac etiology. We will have a repeat EKG later today to ensure no progressive changes to her cardiac status. Thank you for this consultation we will follow along closely EVERARDO GOMEZ MD Feb 11, 2019 14:40
[2019-02-11] MEDS ORDERED: ALBUMIN HUMAN 25% 100 ML IV PRN (14:45)
[2019-02-11] MEDS ORDERED: PIP/TAZO PER PHARMACY MC PRN (15:15)
[2019-02-11] MEDS ORDERED: POTASSIUM CHLORIDE 10MEQ 100 ML IV PRN (15:15)
[2019-02-11] MEDS ORDERED: POLYVINYL ALCOHOL 1.4% OPHTH SOLUTION 15ML BOTTLE. OU PRN (15:15)
[2019-02-11] MEDS ORDERED: PROPOFOL 100 ML IV PRN (15:15)
[2019-02-11] MEDS ORDERED: SODIUM PHOSPHATE IV PRN (15:15)
[2019-02-11] MEDS ORDERED: MAGNESIUM SULFATE 1GM 100 ML IV ONE (15:15)
[2019-02-11] MEDS ORDERED: MAGNESIUM SULFATE 1GM 100 ML IV PRN (15:15)
[2019-02-11] MEDS ORDERED: MAGNESIUM SULFATE 2GM 100 ML IV PRN (15:15)
[2019-02-11] MEDS ORDERED: SODIUM PHOSPHATE 20 MMOL in IV DEXTROSE 5% 250 ML IV PRN (15:15)
[2019-02-11] MEDS ORDERED: POTASSIUM CHL 20MEQ PREMIX 50 ML IV PRN (15:15)
[2019-02-11] MEDS ORDERED: DEXTROSE 5% IV PRN (15:15)
[2019-02-11] MEDS ORDERED: fentaNYL PF VIAL 100 MCG/2 ML VIAL IV ONE (15:15)
[2019-02-11] MEDS: busPIRone 10 MG TABLET. NG SCH ×2 (15:28→23:45)
[2019-02-11] MEDS: ACETAMINOPHEN 650 MG/20.3 ML SOLUTION. NG SCH ×3 (15:29→23:47)
--- NOTE | 2019-02-11 16:08 | RAD ---
Chest AP portable at 1537: Reason for examination: Central line placement. History of cardiopulmonary arrest. Comparison is made to previous study dated 02/11/2019 at 1149. Endotracheal tube, NG tube and right central venous catheter are present. The tip of the right central venous catheter appears be in the right atrium. Heart and mediastinum are unchanged. Lung hernandez show progressive increased opacification throughout the right lung field and at the left lung base. There also continues to be diffuse increase in interstitial markings. This probably reflects pulmonary edema. No acute bony abnormalities are seen. IMPRESSION: Increased opacification of the right lung field and left lung base and diffuse increased interstitial markings. This may reflect pulmonary edema. Electronically signed by: Shireen Cole MD (02/11/2019 4:05 PM) [id number]
[2019-02-11] MEDS ORDERED: IV DEXTROSE 5% 250 ML BAG. IV PRN (16:15)
[2019-02-11] MEDS ORDERED: VANCOMYCIN PER PHARMACY MC PRN (16:15)
[2019-02-11] MEDS ORDERED: DEXTROSE 50% 25 GM / 50ML DISP.SYRIN. IV PRN (16:15)
[2019-02-11 16:19] LABS: BASE EXCESS ABG -8 mmol/L (-3-3); CORRECTED PCO2 ABG 43 mmHg; CORRECTED PH ABG 7.26; CORRECTED PO2 ABG 64 mmHg; HCO3 ABG 19 mmol/L (21-28); SAT O2 ABG 93 % (92-99)
[2019-02-11] MEDS: PANTOPRAZOLE IV PUSH 40 MG VIAL. IVP SCH (16:19)
[2019-02-11] MEDS: HEPARIN for SUB-Q USE 5,000 UNIT/ML VIAL. SQ SCH ×2 (16:19→21:37)
[2019-02-11 16:22] LABS: FIO2 ABG 80; PCO2 ABG 47 mmHg (35-46); PO2 ABG 75 mmHg (65-108)
--- NOTE | 2019-02-11 16:30 | CONS ---
DATE OF CONSULTATION: 02/11/2019 PULMONARY CONSULTATION HISTORY OF PRESENT ILLNESS: This is a 78-year-old female who is referred for respiratory failure. The history is obtained from the chart as well as discussions with the oldest daughter and best friend of the patient. The patient is a 78-year-old female who never smoked tobacco. She is in the alf because of prior strokes and complications of that. She previously was alert. She fed herself and did not have any reported difficulty in swallowing her food. She has been on oxygen therapy, although there is some discrepancy in the chart, Dr. Christine notes after discussions with the alf that it had only been for 5 days. The daughter was not aware of the oxygen therapy. The patient had been treated for pneumonia past for the 5 days, but had been progressing. The friend of the patient noted that she thought her respiratory status had been deteriorating for a few months. The patient was sent to the [facility]. It was noted on route that she had severe hypoxia with an oxygen saturation of 60% on 5 liters of oxygen. She was also transported on CPAP in addition to the oxygen. She was discovered to have pulseless electrical activity and underwent cardiopulmonary resuscitation. She was given epinephrine. She was intubated. She was then transported to the Intensive Care Unit. PAST MEDICAL HISTORY: Significant for The CVA as noted above. She has chronic kidney disease, diabetes, and hypertension. She also has an unusual eye problems per the daughter, but the exact nature of that is not clear. FAMILY HISTORY: Positive for heart disease. SOCIAL HISTORY: As noted above, she does not and never did smoke tobacco. She does not consume alcohol or use drugs. REVIEW OF SYSTEMS: Unobtainable. PHYSICAL EXAMINATION: GENERAL: Reveals a female who is intubated and unresponsive. VITAL SIGNS: She is afebrile. Her heart rate is 80 per minute and regular. Her respiratory rate is 20 per minute on the ventilator. She is not initiating breaths. Her blood pressure is 96/55, her oxygen saturation is 96% on 100% oxygen. HEENT: Positive for periorbital edema. NECK: There is no JVD or lymphadenopathy. CHEST: She has minimal pink secretions from her endotracheal tube. She has bilateral rhonchi and rare wheezes. CARDIOVASCULAR: She has a regular rate and rhythm. ABDOMEN: Soft. EXTREMITIES: There is no cyanosis, clubbing or edema. NEUROLOGIC: She is unresponsive and without spontaneous movements and does not initiate respiration. She also does not cough when suctioned. However, she has received sedation for the intubation process. IMAGING AND LABORATORY DATA: Chest x-ray was obtained reveals the endotracheal tube is in good position. She has an enlarged cardiovascular silhouette. She has bilateral infiltrates, but these are much more pronounced in the right lung. Her creatinine was 2.2. Her lactic acid was 8.3. Her troponin was 0.1. Her BNP was 14,000. These were drawn after her arrest. Her D-dimer was elevated at 3.8. Arterial blood gases done at noon revealed a pH of 7.01, pCO2 of 50 and a pO2 of 234 on an FiO2 of 1.0. IMPRESSION: 1. Acute respiratory failure. I do believe that this is most likely due to pneumonia in a alf resident. I have some concern about thromboembolic disease, but I think this is not likely. 2. Cardiac arrest. 3. Chronic kidney disease. Her azotemia is likely to worsen after the arrest. PLAN: We will repeat her arterial blood gas. We will adjust her mechanical ventilation accordingly. I agree with the broad spectrum antibiotics in particular covering her for nosocomial organisms including staph and gram negatives. I do not think that we can do a CTA on her without significant adverse consequences to her renal function. I would suggest that we obtain venous Dopplers and a perfusion scan. Thank you for this consult. I will follow along and make further recommendations. If you have any questions, please do not hesitate to contact me. MICHELET NEWMAN MD DR: EDIN/chad JOB#: [id number] / [id number] REGAN
[2019-02-11] MEDS ORDERED: INSULIN LISPRO 300 UNITS/3 ML VIAL. SQ SCH (18:00)
[2019-02-11] MEDS ORDERED: INSULIN REGULAR VIAL 150 UNIT in 0.9 % SODIUM CHLORIDE 150ML 150 ML IV PRN (18:00)
--- NOTE | 2019-02-11 18:19 | RAD ---
Bilateral lower extremity venous doppler ultrasound History: Postarrest Comparison: None Findings: Multiple grayscale, color, and duplex spectral analysis sonographic images were acquired of the bilateral lower extremity veins to evaluate for the presence of DVT. There is normal phasicity. Normal compression, color-flow, and augmentation is demonstrated from the bilateral common femoral to the popliteal veins. There is normal color flow of the proximal greater saphenous and profunda femoris veins. Calf vessels were reportedly more difficult to visualize. Impression: 1. There is no evidence of deep venous thrombosis from the bilateral common femoral to the popliteal veins. Electronically signed by: Binh Leary MD (02/11/2019 6:16 PM) [id number]
[2019-02-11] MEDS: PIPERACILLIN/TAZOBACTAM 3.375 GM in IV NORMAL SALINE 50ML 50 ML IV SCH ×2 (18:42→23:45)
[2019-02-11] MEDS: POLYVINYL ALCOHOL 1.4% OPHTH SOLUTION 15ML BOTTLE. OU SCH ×2 (18:43→23:48)
--- NOTE | 2019-02-11 20:06 | RAD ---
Indication:Reposition of central line. TECHNIQUE:Portable AP chest X-ray COMPARISON: Study from same day earlier FINDINGS: ET tube and NG tube are in appropriate position. Interval retraction of right IJ catheter with its tip in the SVC. Heart is moderately enlarged in size. Diffuse interstitial opacities opacities are seen in the bilateral lungs, more so in the right lung. No pneumothorax or large effusion. Visualized bony thorax within normal limits. IMPRESSION: Interval repositioning of right IJ catheter, in appropriate position. Bilateral interstitial and airspace disease likely secondary to interstitial pulmonary edema. Electronically signed by: David Martinez DO (02/11/2019 8:03 PM) [facility]
[2019-02-11 20:33] LABS: BASE EXCESS ABG -9 mmol/L (-3-3); CORRECTED PCO2 ABG 43 mmHg; CORRECTED PH ABG 7.23; CORRECTED PO2 ABG 59 mmHg; HCO3 ABG 19 mmol/L (21-28); SAT O2 ABG 94 % (92-99)
[2019-02-11 20:34] LABS: FIO2 ABG 80; PCO2 ABG 51 mmHg (35-46); PO2 ABG 76 mmHg (65-108)
--- NOTE | 2019-02-11 20:39 | RAD ---
Indication: Post code. Possible PE. TECHNIQUE: Nuclear medicine VQ scan with only perfusion images as patient is on ventilation. 5.5 mCi of technetium 99m MAA for perfusion scan. COMPARISON: Chest x-ray from the same day. FINDINGS: Limited exam due to lack of ventilation images. Relatively homogeneous distribution is seen of the perfusion agent. Mild photopenia on the bilateral lateral images likely secondary to attenuation from breast soft tissue. IMPRESSION: Low probability VQ scan. If concern for PE is high further evaluation with CT angiogram chest recommended. Electronically signed by: David Martinez DO (02/11/2019 8:36 PM) [facility]
[2019-02-11] MEDS ORDERED: INSULIN GLARGINE SYRINGE. SQ SCH (21:00)
[2019-02-11] MEDS: MIDAZOLAM 100mg/100ml NS BAG 100 ML IV PRN (23:45)
[2019-02-12] VITALS (24 sets, daily range): BP systolic 87–161; BP diastolic 33–74
--- NOTE | 2019-02-12 00:31 | EKG ---
[facility] [address] [place] [address] Test Date: 2019-02-11 Test Time: 16:15:16 Pat Name: BEN MILLER Department: Room: Gender: F Clinical Data Coordinator: SHARATH : 1940 Requested By: BETINA SAMAYOA Order Number: [id number] Reading MD: Measurements Intervals [place] Rate: 61 P: 31 MA: 178 QRS: -30 QRSD: 90 T: -44 QT: 492 QTc: 497 Interpretive Statements SINUS RHYTHM ABNORMAL LEFT AXIS DEVIATION LEFT ANTERIOR FASCICULAR BLOCK T ABNORMALITY IN ANTEROLATERAL LEADS INFERIOR LEADS PROLONGED QT ABNORMAL ECG RI6.01 Compared to ECG 05/24/2018 06:51:44 Left anterior fascicular block now present Prolonged QT interval now present T-wave abnormality still present
[2019-02-12] MEDS: ACETAMINOPHEN 650 MG/20.3 ML SOLUTION. NG SCH ×5 (04:05→18:13)
[2019-02-12] MEDS ORDERED: VANCOMYCIN 1 GM in IV NORMAL SALINE 250ML 250 ML IV SCH (04:15)
[2019-02-12] MEDS: VECURONIUM BOLUS 10 MG VIAL. IV PRN ×2 (04:17→10:49)
[2019-02-12] MEDS: POLYVINYL ALCOHOL 1.4% OPHTH SOLUTION 15ML BOTTLE. OU SCH ×3 (06:15→18:13)
[2019-02-12] MEDS: PIPERACILLIN/TAZOBACTAM 3.375 GM in IV NORMAL SALINE 50ML 50 ML IV SCH ×3 (06:15→18:14)
[2019-02-12 06:51] LABS: CREATININE 2.3 mg/dL (0.6-1.0); GFR 20.6
--- NOTE | 2019-02-12 08:23 | PDOC ---
PULMONARY PROGRESS NOTES Subjective 78 y.o. female [facility] resident. she had been treated for pneumonia there, but was unresponsive and having progressive hypoxia and respiratory difficulty. Upon presentation to [facility] she had pulseless cardiac arrest. She was intubated. Presently she is sedated and undergoing hypothermia protocol. Vitals Vital Signs Date Time Temp Pulse Resp B/P (MAP) Pulse Ox O2 Delivery O2 Flow Rate FiO2 02/12/19 07:34 100 Ventilator 02/12/19 07:00 91.4 02/12/19 07:00 66 20 Lungs: Other (diminished breath sounds, dependent rales) Cardiovascular: S1, S2 Abdomen: Soft Extremities: No Edema Labs Verbal report 05/25 blood cultures positive, identification pending Laboratory Tests Test 02/11/19 11:29 02/11/19 11:50 02/11/19 12:00 02/11/19 15:55 Glucose (Fingerstick) 282 mg/dL (70-99) White Blood Count 11.0 x10^3/uL (4.0-11.0) Red Blood Count 3.60 x10^6/uL (3.50-5.40) Hemoglobin 10.3 g/dL (12.0-15.5) Hematocrit 33.6 % (36.0-47.0) Mean Corpuscular Volume 94 fL (79-100) Mean Corpuscular Hemoglobin 29 pg (25-35) Mean Corpuscular Hemoglobin Concent 31 g/dL (31-37) Red Cell Distribution Width 15.4 % (11.5-14.5) Platelet Count 253 x10^3/uL (140-400) Neutrophils (%) (Auto) 54 % (31-73) Lymphocytes (%) (Auto) 40 % (24-48) Monocytes (%) (Auto) 3 % (0-9) Eosinophils (%) (Auto) 2 % (0-3) Basophils (%) (Auto) 1 % (0-3) Neutrophils # (Auto) 5.9 x10^3/uL (1.8-7.7) Lymphocytes # (Auto) 4.4 x10^3/uL (1.0-4.8) Monocytes # (Auto) 0.4 x10^3/uL (0.0-1.1) Eosinophils # (Auto) 0.2 x10^3/uL (0.0-0.7) Basophils # (Auto) 0.1 x10^3/uL (0.0-0.2) Prothrombin Time 15.1 SEC (11.7-14.0) Prothromb Time International Ratio 1.2 (0.8-1.1) D-Dimer (Pam) 3.82 ug/mlFEU (0.00-0.50) Sodium Level 141 mmol/L (136-145) Potassium Level 4.4 mmol/L (3.5-5.1) Chloride Level 108 mmol/L (98-107) Carbon Dioxide Level 17 mmol/L (21-32) Anion Gap 16 (6-14) Blood Urea Nitrogen 28 mg/dL (7-20) Creatinine 2.2 mg/dL (0.6-1.0) Estimated GFR (Cockcroft-Gault) 21.7 BUN/Creatinine Ratio 13 (6-20) Glucose Level 390 mg/dL (70-99) Lactic Acid Level 8.3 mmol/L (0.4-2.0) Calcium Level 8.7 mg/dL (8.5-10.1) Magnesium Level 2.3 mg/dL (1.8-2.4) Total Bilirubin 0.3 mg/dL (0.2-1.0) Aspartate Amino Transf (AST/SGOT) 46 U/L (15-37) Alanine Aminotransferase (ALT/SGPT) 33 U/L (14-59) Alkaline Phosphatase 136 U/L (46-116) Creatine Kinase 99 U/L (26-192) Troponin I Quantitative 0.107 ng/mL (0.000-0.055) JH-Umq-L-Type Natriuretic Peptide 11467 pg/mL (0-449) Total Protein 6.3 g/dL (6.4-8.2) Albumin 2.8 g/dL (3.4-5.0) Albumin/Globulin Ratio 0.8 (1.0-1.7) Lipase 168 U/L (73-393) O2 Saturation 99 % (92-99) 93 % (92-99) Arterial Blood pH 7.01 (7.35-7.45) 7.23 (7.35-7.45) Arterial Blood pCO2 at Patient Temp 50 mmHg (35-46) 47 mmHg (35-46) Arterial Blood pO2 at Patient Temp 234 mmHg (65-108) 75 mmHg (65-108) Arterial Blood HCO3 13 mmol/L (21-28) 19 mmol/L (21-28) Arterial Blood Base Excess -18 mmol/L (-3-3) -8 mmol/L (-3-3) FiO2 100 80 Arterial Blood pH (Temp corrected) 7.26 Arterial Blood pCO2 (Temp correct) 43 mmHg Arterial Blood pO2 (Temp corrected) 64 mmHg Test 02/11/19 16:26 02/11/19 17:40 02/11/19 17:51 02/11/19 19:49 Glucose (Fingerstick) 254 mg/dL (70-99) 263 mg/dL (70-99) Lactic Acid Level 2.7 mmol/L (0.4-2.0) Troponin I Quantitative 0.765 ng/mL (0.000-0.055) Procalcitonin 1.22 ng/mL (0.00-0.10) O2 Saturation 94 % (92-99) Arterial Blood pH 7.19 (7.35-7.45) Arterial Blood pH (Temp corrected) 7.23 Arterial Blood pCO2 at Patient Temp 51 mmHg (35-46) Arterial Blood pCO2 (Temp correct) 43 mmHg Arterial Blood pO2 at Patient Temp 76 mmHg (65-108) Arterial Blood pO2 (Temp corrected) 59 mmHg Arterial Blood HCO3 19 mmol/L (21-28) Arterial Blood Base Excess -9 mmol/L (-3-3) FiO2 80 Test 02/11/19 21:27 02/11/19 22:35 02/11/19 23:51 02/12/19 01:00 Glucose (Fingerstick) 146 mg/dL (70-99) 110 mg/dL (70-99) 94 mg/dL (70-99) 79 mg/dL (70-99) Test 02/12/19 02:18 02/12/19 06:18 02/12/19 06:20 Glucose (Fingerstick) 78 mg/dL (70-99) 105 mg/dL (70-99) Creatinine 2.3 mg/dL (0.6-1.0) Estimated GFR (Cockcroft-Gault) 20.6 Laboratory Tests Test 02/11/19 11:29 02/11/19 11:50 02/11/19 12:00 02/11/19 15:55 Glucose (Fingerstick) 282 mg/dL (70-99) White Blood Count 11.0 x10^3/uL (4.0-11.0) Red Blood Count 3.60 x10^6/uL (3.50-5.40) Hemoglobin 10.3 g/dL (12.0-15.5) Hematocrit 33.6 % (36.0-47.0) Mean Corpuscular Volume 94 fL (79-100) Mean Corpuscular Hemoglobin 29 pg (25-35) Mean Corpuscular Hemoglobin Concent 31 g/dL (31-37) Red Cell Distribution Width 15.4 % (11.5-14.5) Platelet Count 253 x10^3/uL (140-400) Neutrophils (%) (Auto) 54 % (31-73) Lymphocytes (%) (Auto) 40 % (24-48) Monocytes (%) (Auto) 3 % (0-9) Eosinophils (%) (Auto) 2 % (0-3) Basophils (%) (Auto) 1 % (0-3) Neutrophils # (Auto) 5.9 x10^3/uL (1.8-7.7) Lymphocytes # (Auto) 4.4 x10^3/uL (1.0-4.8) Monocytes # (Auto) 0.4 x10^3/uL (0.0-1.1) Eosinophils # (Auto) 0.2 x10^3/uL (0.0-0.7) Basophils # (Auto) 0.1 x10^3/uL (0.0-0.2) Prothrombin Time 15.1 SEC (11.7-14.0) Prothromb Time International Ratio 1.2 (0.8-1.1) D-Dimer (Pam) 3.82 ug/mlFEU (0.00-0.50) Sodium Level 141 mmol/L (136-145) Potassium Level 4.4 mmol/L (3.5-5.1) Chloride Level 108 mmol/L (98-107) Carbon Dioxide Level 17 mmol/L (21-32) Anion Gap 16 (6-14) Blood Urea Nitrogen 28 mg/dL (7-20) Creatinine 2.2 mg/dL (0.6-1.0) Estimated GFR (Cockcroft-Gault) 21.7 BUN/Creatinine Ratio 13 (6-20) Glucose Level 390 mg/dL (70-99) Lactic Acid Level 8.3 mmol/L (0.4-2.0) Calcium Level 8.7 mg/dL (8.5-10.1) Magnesium Level 2.3 mg/dL (1.8-2.4) Total Bilirubin 0.3 mg/dL (0.2-1.0) Aspartate Amino Transf (AST/SGOT) 46 U/L (15-37) Alanine Aminotransferase (ALT/SGPT) 33 U/L (14-59) Alkaline Phosphatase 136 U/L (46-116) Creatine Kinase 99 U/L (26-192) Troponin I Quantitative 0.107 ng/mL (0.000-0.055) XQ-Abg-H-Type Natriuretic Peptide 52233 pg/mL (0-449) Total Protein 6.3 g/dL (6.4-8.2) Albumin 2.8 g/dL (3.4-5.0) Albumin/Globulin Ratio 0.8 (1.0-1.7) Lipase 168 U/L (73-393) O2 Saturation 99 % (92-99) 93 % (92-99) Arterial Blood pH 7.01 (7.35-7.45) 7.23 (7.35-7.45) Arterial Blood pCO2 at Patient Temp 50 mmHg (35-46) 47 mmHg (35-46) Arterial Blood pO2 at Patient Temp 234 mmHg (65-108) 75 mmHg (65-108) Arterial Blood HCO3 13 mmol/L (21-28) 19 mmol/L (21-28) Arterial Blood Base Excess -18 mmol/L (-3-3) -8 mmol/L (-3-3) FiO2 100 80 Arterial Blood pH (Temp corrected) 7.26 Arterial Blood pCO2 (Temp correct) 43 mmHg Arterial Blood pO2 (Temp corrected) 64 mmHg Test 02/11/19 16:26 02/11/19 17:40 02/11/19 17:51 02/11/19 19:49 Glucose (Fingerstick) 254 mg/dL (70-99) 263 mg/dL (70-99) Lactic Acid Level 2.7 mmol/L (0.4-2.0) Troponin I Quantitative 0.765 ng/mL (0.000-0.055) Procalcitonin 1.22 ng/mL (0.00-0.10) O2 Saturation 94 % (92-99) Arterial Blood pH 7.19 (7.35-7.45) Arterial Blood pH (Temp corrected) 7.23 Arterial Blood pCO2 at Patient Temp 51 mmHg (35-46) Arterial Blood pCO2 (Temp correct) 43 mmHg Arterial Blood pO2 at Patient Temp 76 mmHg (65-108) Arterial Blood pO2 (Temp corrected) 59 mmHg Arterial Blood HCO3 19 mmol/L (21-28) Arterial Blood Base Excess -9 mmol/L (-3-3) FiO2 80 Test 02/11/19 21:27 02/11/19 22:35 02/11/19 23:51 02/12/19 01:00 Glucose (Fingerstick) 146 mg/dL (70-99) 110 mg/dL (70-99) 94 mg/dL (70-99) 79 mg/dL (70-99) Test 02/12/19 02:18 02/12/19 06:18 02/12/19 06:20 Glucose (Fingerstick) 78 mg/dL (70-99) 105 mg/dL (70-99) Creatinine 2.3 mg/dL (0.6-1.0) Estimated GFR (Cockcroft-Gault) 20.6 Medications Active Scripts Medications Dose Route/Sig Max Daily Dose Days Date Category Dose Instructions Feosol (Ferrous Sulfate) 325 Mg Tablet 325 Mg PO [id number] 30 05/27/18 Rx Benzonatate 100 Mg Capsule 100 Mg PO [id number] 05/27/18 Rx Amlodipine Besylate 10 Mg Tablet 10 Mg PO DAILY 30 05/27/18 Rx Tradjenta (Linagliptin) 5 Mg Tablet 5 Mg PO DAILY 05/24/18 Reported Vitamin D3 (Cholecalciferol (Vitamin D3)) 1,000 Unit Tablet 1 Tab PO DAILY 05/24/18 Reported Trazodone Hcl 150 Mg Tablet 150 Mg PO HS 05/24/18 Reported Aspirin Ec (Aspirin) 325 Mg Tablet.dr 1 Tab PO DAILY 05/24/18 Reported Metoprolol Tartrate 25 Mg Tablet 1 Tab PO BID 11/21/14 Reported NEW MEDICATION BEGINNING 11/21/2014 PM DOSE MONITOR BLOOD PRESSURE DAILY Losartan Potassium 100 Mg Tablet 1 Tab PO DAILY 11/20/14 Reported Simvastatin 40 Mg Tablet 40 Mg PO DAILY 11/20/14 Reported Hydrocodone-Apap 10-325 (Hydrocodone Bit/Acetaminophen) 1 Each Tablet 1 Tab PO Q8HRS PRN 11/20/14 Reported Comments CXR from last night shows bilateral infiltrates, R>L Doppler US of legs negative Perfusion scan low probability Impression . 1. Acute hypoxic respiratory failure secondary to pneumonia and contribution of fluid overload 2. post cardiac arrest with possible/likely multiorgan ischemic injury 3.CKD worsened by cardiac arrestThis is a 78-year-old female who is referred for respiratory failure. 4. Sepsis Plan . 1. Continue mechanical ventilatory support. will reduce FiO2 as tolerated 2. Agree with broad antibiotics covering GNR and Staph (Received one time dose vancomycin) in particular, Will ask assistance ID service. 3. IVF are minimized. Will give 40 mg lasix although response is uncertain 4. patient has positive blood culture, identification pending and will ask ID to follow Critical care time spent reviewing chart, xrays, examining and determining care 35 minutes MICHELET NEWMAN MD Feb 12, 2019 08:23
[2019-02-12] MEDS ORDERED: FUROSEMIDE 40 MG/4 ML VIAL. IVP ONE (08:30)
[2019-02-12 08:34] LABS: BASE EXCESS ABG -7 mmol/L (-3-3); CORRECTED PCO2 ABG 21 mmHg; CORRECTED PH ABG 7.49; CORRECTED PO2 ABG 122 mmHg; HCO3 ABG 16 mmol/L (21-28); PCO2 ABG 24 mmHg (35-46); PO2 ABG 143 mmHg (65-108); SAT O2 ABG 99 % (92-99)
[2019-02-12 08:41] LABS: FIO2 ABG 60
[2019-02-12] MEDS: busPIRone 10 MG TABLET. NG SCH ×2 (09:35→15:17)
[2019-02-12] MEDS: PANTOPRAZOLE IV PUSH 40 MG VIAL. IVP SCH (09:35)
[2019-02-12] MEDS: HEPARIN for SUB-Q USE 5,000 UNIT/ML VIAL. SQ SCH ×2 (09:36→21:10)
--- NOTE | 2019-02-12 09:49 | PDOC ---
Infectious Disease Note Vital Sign Vital Signs Vital Signs Date Time Temp Pulse Resp B/P (MAP) Pulse Ox O2 Delivery O2 Flow Rate FiO2 02/12/19 08:56 100 Ventilator 02/12/19 07:00 91.4 02/12/19 07:00 66 20 Labs Lab Laboratory Tests Test 02/11/19 11:29 02/11/19 11:50 02/11/19 12:00 02/11/19 15:55 Glucose (Fingerstick) 282 mg/dL (70-99) White Blood Count 11.0 x10^3/uL (4.0-11.0) Red Blood Count 3.60 x10^6/uL (3.50-5.40) Hemoglobin 10.3 g/dL (12.0-15.5) Hematocrit 33.6 % (36.0-47.0) Mean Corpuscular Volume 94 fL (79-100) Mean Corpuscular Hemoglobin 29 pg (25-35) Mean Corpuscular Hemoglobin Concent 31 g/dL (31-37) Red Cell Distribution Width 15.4 % (11.5-14.5) Platelet Count 253 x10^3/uL (140-400) Neutrophils (%) (Auto) 54 % (31-73) Lymphocytes (%) (Auto) 40 % (24-48) Monocytes (%) (Auto) 3 % (0-9) Eosinophils (%) (Auto) 2 % (0-3) Basophils (%) (Auto) 1 % (0-3) Neutrophils # (Auto) 5.9 x10^3/uL (1.8-7.7) Lymphocytes # (Auto) 4.4 x10^3/uL (1.0-4.8) Monocytes # (Auto) 0.4 x10^3/uL (0.0-1.1) Eosinophils # (Auto) 0.2 x10^3/uL (0.0-0.7) Basophils # (Auto) 0.1 x10^3/uL (0.0-0.2) Prothrombin Time 15.1 SEC (11.7-14.0) Prothromb Time International Ratio 1.2 (0.8-1.1) D-Dimer (Pam) 3.82 ug/mlFEU (0.00-0.50) Sodium Level 141 mmol/L (136-145) Potassium Level 4.4 mmol/L (3.5-5.1) Chloride Level 108 mmol/L (98-107) Carbon Dioxide Level 17 mmol/L (21-32) Anion Gap 16 (6-14) Blood Urea Nitrogen 28 mg/dL (7-20) Creatinine 2.2 mg/dL (0.6-1.0) Estimated GFR (Cockcroft-Gault) 21.7 BUN/Creatinine Ratio 13 (6-20) Glucose Level 390 mg/dL (70-99) Lactic Acid Level 8.3 mmol/L (0.4-2.0) Calcium Level 8.7 mg/dL (8.5-10.1) Magnesium Level 2.3 mg/dL (1.8-2.4) Total Bilirubin 0.3 mg/dL (0.2-1.0) Aspartate Amino Transf (AST/SGOT) 46 U/L (15-37) Alanine Aminotransferase (ALT/SGPT) 33 U/L (14-59) Alkaline Phosphatase 136 U/L (46-116) Creatine Kinase 99 U/L (26-192) Troponin I Quantitative 0.107 ng/mL (0.000-0.055) JY-Chn-B-Type Natriuretic Peptide 10395 pg/mL (0-449) Total Protein 6.3 g/dL (6.4-8.2) Albumin 2.8 g/dL (3.4-5.0) Albumin/Globulin Ratio 0.8 (1.0-1.7) Lipase 168 U/L (73-393) O2 Saturation 99 % (92-99) 93 % (92-99) Arterial Blood pH 7.01 (7.35-7.45) 7.23 (7.35-7.45) Arterial Blood pCO2 at Patient Temp 50 mmHg (35-46) 47 mmHg (35-46) Arterial Blood pO2 at Patient Temp 234 mmHg (65-108) 75 mmHg (65-108) Arterial Blood HCO3 13 mmol/L (21-28) 19 mmol/L (21-28) Arterial Blood Base Excess -18 mmol/L (-3-3) -8 mmol/L (-3-3) FiO2 100 80 Arterial Blood pH (Temp corrected) 7.26 Arterial Blood pCO2 (Temp correct) 43 mmHg Arterial Blood pO2 (Temp corrected) 64 mmHg Test 02/11/19 16:26 02/11/19 17:40 02/11/19 17:51 02/11/19 19:49 Glucose (Fingerstick) 254 mg/dL (70-99) 263 mg/dL (70-99) Lactic Acid Level 2.7 mmol/L (0.4-2.0) Troponin I Quantitative 0.765 ng/mL (0.000-0.055) Procalcitonin 1.22 ng/mL (0.00-0.10) O2 Saturation 94 % (92-99) Arterial Blood pH 7.19 (7.35-7.45) Arterial Blood pH (Temp corrected) 7.23 Arterial Blood pCO2 at Patient Temp 51 mmHg (35-46) Arterial Blood pCO2 (Temp correct) 43 mmHg Arterial Blood pO2 at Patient Temp 76 mmHg (65-108) Arterial Blood pO2 (Temp corrected) 59 mmHg Arterial Blood HCO3 19 mmol/L (21-28) Arterial Blood Base Excess -9 mmol/L (-3-3) FiO2 80 Test 02/11/19 21:27 02/11/19 22:35 02/11/19 23:51 02/12/19 01:00 Glucose (Fingerstick) 146 mg/dL (70-99) 110 mg/dL (70-99) 94 mg/dL (70-99) 79 mg/dL (70-99) Test 02/12/19 02:18 02/12/19 06:18 02/12/19 06:20 02/12/19 08:30 Glucose (Fingerstick) 78 mg/dL (70-99) 105 mg/dL (70-99) Creatinine 2.3 mg/dL (0.6-1.0) Estimated GFR (Cockcroft-Gault) 20.6 O2 Saturation 99 % (92-99) Arterial Blood pH 7.43 (7.35-7.45) Arterial Blood pH (Temp corrected) 7.49 Arterial Blood pCO2 at Patient Temp 24 mmHg (35-46) Arterial Blood pCO2 (Temp correct) 21 mmHg Arterial Blood pO2 at Patient Temp 143 mmHg (65-108) Arterial Blood pO2 (Temp corrected) 122 mmHg Arterial Blood HCO3 16 mmol/L (21-28) Arterial Blood Base Excess -7 mmol/L (-3-3) FiO2 60 Micro Microbiology 02/11/19 Blood Culture - Final, Complete Objective Assessment Sepsis with GPC in chains bacteremia, POA HCAP (reportedly on abx prior to admit) s/p cardiopulmonary arrest ALLERGY CEPHALOSPORINS, unknown reaction Lactic acidosis FOZIA on CKD stage 3 DM Plan Plan of Care Given patient renal function will discontinue the vancomycin Continue the Zosyn. Add sputum and Strep pneumoniae Ag testing Labs in am Monitor closely D/w nursing Critically ill Thank you [id number] Attending Co-Sign The patient was seen and interviewed as well as examined at the bedside. The chart was reviewed. The case was discussed. Agree with the plan of care. d/w daughter at bedside TERELL JANG APRN Feb 12, 2019 09:49 MARCELLUS CARDENAS MD Feb 12, 2019 10:36
--- NOTE | 2019-02-12 10:15 | CONS ---
DATE OF CONSULTATION: 02/12/2019 INFECTIOUS DISEASE CONSULTATION REQUESTING PHYSICIAN: Dr. Boland REASON FOR CONSULTATION: Positive blood cultures and pneumonia. HISTORY OF PRESENT ILLNESS: This patient is a 78-year-old female who is currently intubated and sedated, unable to provide history of present illness, past medical history or review of systems. According to the medical record, she is a long term resident, who was recently being treated for pneumonia. Over the last several days, she developed worsening shortness of air and cough. She was found to be hypoxic on 5 liters of oxygen and was placed on CPAP. On arrival to the ER, she was pale and pulseless status post successful CPR. She is now on a cooling blanket. Levophed is now off. A chest x-ray on admission showed opacities in the right upper lobe and right perihilar lung as well as diffuse interstitial opacities. Blood cultures were ordered and now show gram-positive cocci in chains seen in 1 of 2 bottles. She is currently on vancomycin and Zosyn. ID has been asked consult for further evaluation and antibiotic management. PAST MEDICAL HISTORY: CVA, Arnold-Chiari malformation, congenital coronary artery disease, hyperlipidemia, hypertension, sleep apnea, oxygen dependent p.r.n., carpal tunnel syndrome, cataracts, diabetes, history of ovarian cancer, skin cancer, radiation therapy with pellet placement into bilateral eyes. Legally blind. Chronic kidney disease stage 3, iron deficiency anemia. History E. coli UTI (resistant to quinolones tetra). PAST SURGICAL HISTORY: Cataract extraction, tonsillectomy, adenoidectomy, craniotomy and brain shunt, appendectomy, cholecystectomy, rectocele and cystocele repairs, hysterectomy, oophorectomy, tubal ligation, carpal tunnel syndrome bilaterally, left wrist fracture repair, left rotator cuff repair, partial thyroidectomy. FAMILY HISTORY: Heart disease. SOCIAL HISTORY: residential resident. ALLERGIES: KATIE INHIBITORS, CEPHALOSPORIN, REACTION UNKNOWN. INDOCIN, METHOTREXATE, ANALOGS. CURRENT MEDICATIONS: Vancomycin and Zosyn. Other medications are available and have been reviewed on the JUL. REVIEW OF SYSTEMS: Unobtainable as the patient is intubated and sedated. She is having some diarrhea. PHYSICAL EXAMINATION: VITAL SIGNS: Temperature is 91.4, blood pressure 97/54, heart rate 66, respiratory rate 20, pulse oximetry is 100% on FiO2 of 40% via ventilator. GENERAL: The patient is pale. Orally intubated and sedated. HEENT: Pupils equally round nonreactive. ETT and OGT in place. NECK: Supple. LUNGS: Coarse. HEART: S1 and S2 irregular. ABDOMEN: Soft. No guarding. Hypoactive bowel sounds. GENITOURINARY: Lovett in place. EXTREMITIES: No trace edema. No cyanosis. SKIN: Cool, pale cooling blanket in place. NEUROLOGIC: Unresponsive/sedated. RIJ without signs of any complications. LABORATORY DATA: On admission, WBC 11.0, hemoglobin 10.3, platelets 253,000. Creatinine 2.3 from 2.2, BUN 28, sodium 141, potassium 4.4, anion gap 16, glucose 390. Lactic acid 2.7 from 8.3. Troponin 0.765. Procalcitonin 1.22. BNP 14,213, total bilirubin 0.3, AST 46, ALT 33. Creatinine kinase 99. Blood cultures show gram-positive cocci in chains seen in 1 of 2 bottles from 02/11/2019. MRSA screen and urinalysis is pending. Today's chest x-ray shows bilateral interstitial and airspace disease, likely secondary to interstitial pulmonary edema. Lower extremity ultrasound showed no evidence of DVT. V/Q imaging low probability. Head CT shows stable encephalomalacia likely from prior infarct in the left cerebellar hemisphere and right frontal lobe. No acute intracranial bleed. IMPRESSION: 1. Sepsis with Gram-positive cocci bacteremia, present on admission. 2. Healthcare-acquired pneumonia. 3. Status post cardiopulmonary arrest. 4. Allergy to CEPHALOSPORINS, UNKNOWN REACTION. 5. Lactic acidosis. 6. Acute kidney injury on chronic kidney disease. 7. Diabetes mellitus. PLAN: Given the patient's renal function will discontinue the vancomycin, continue the Zosyn. Sputum culture and strep pneumonia antigen have been ordered. Continue to monitor laboratory values. Monitor closely. Thank you, Dr. Boland for asking us to participate in this patient's care. Should you have further questions or concerns, please call. MARCELLUS CARDENAS MD DR: EDI/chad JOB#: [id number] / [id number]
[2019-02-12 11:06] LABS: ALBUMIN 2.3 g/dL (3.4-5.0); ALBUMIN/GLOBULIN RATIO 0.8 (1.0-1.7); CALCIUM 7.9 mg/dL (8.5-10.1); CREATININE 2.4 mg/dL (0.6-1.0); GFR 19.6; PHOSPHORUS 3.9 mg/dL (2.6-4.7); POTASSIUM 4.2 mmol/L (3.5-5.1); TOTAL BILIRUBIN 0.5 mg/dL (0.2-1.0); TOTAL PROTEIN 5.3 g/dL (6.4-8.2)
[2019-02-12 11:08] LABS: BASO % 0 % (0-3); EOS % 0 % (0-3); HEMATOCRIT 26.3 % (36.0-47.0); HEMOGLOBIN 8.8 g/dL (12.0-15.5); LYMPH # 0.8 x10^3/uL (1.0-4.8); LYMPH % 12 % (24-48); MEAN CORPUSCULAR HEMOGLOBIN 29 pg (25-35); MEAN CORPUSCULAR HGB CONC 33 g/dL (31-37); MEAN CORPUSCULAR VOLUME 87 fL (79-100); MONO # 0.4 x10^3/uL (0.0-1.1); MONO % 6 % (0-9); NEUT # 5.4 x10^3/uL (1.8-7.7); NEUT % 81 % (31-73); PLATELET COUNT 147 x10^3/uL (140-400); RED BLOOD COUNT 3.03 x10^6/uL (3.50-5.40); RED CELL DISTRIBUTION WIDTH 14.6 % (11.5-14.5); WHITE BLOOD COUNT 6.7 x10^3/uL (4.0-11.0)
[2019-02-12 11:16] LABS: PROTHROMBIN TIME PATIENT 15.3 SEC (11.7-14.0)
--- NOTE | 2019-02-12 11:30 | PDOC2 ---
NEUROLOGY CONSULT Date of Admission Date of Admission DATE: 02/12/19 TIME: 11:22 Reason for Consult Reason for Consult: Post code Referring Physician Referring Physician: Dr. Christine Source Source: Caregiver (daughter, power of mergers and acquisitions attorney), Chart review History of Present Illness History of Present Illness The patient is a 78 showed right-handed female brought over from her residential with shortness of breath, she went into cardiac arrest upon arrival in the emergency department and had at least 20 minutes downtime. Now in hypothermia protocol. She has had a progressive blindness disease. Daughter denies history of stroke, but this appears in her nursing history. Patient has had craniotomy for Arnold-Chiari malformation. There is no history of seizure Past Medical History Cardiovascular: CAD, HTN, Hyperlipidemia Pulmonary: Other (sleep apnea) CENTRAL NERVOUS SYSTEM: CVA, TIA Musculoskeletal: Other (fractures) ENT: Other (legally blind) Renal/: Other (ovarian cysts) Endocrine: Diabetes Dermatology: Basal cell Past Surgical History Past Surgical History: Appendectomy, Cholecystectomy, Cataract Removal, Tubal Ligation, Tonsillectomy, Hysterectomy, Other (craniotomy for Arnold-Chiari malformation, rectocele/cystocele, bilateral carpal tunnel, left wrist fracture repair, rotator cuff, partial thyroidectomy) Family History Family History: CAD Social History Social History , residential resident, legally blind, no alcohol or tobacco Current Medications Current Medications Current Medications Midazolam HCl 100 ml @ 0 mls/hr 1X ONCE IV Last administered on 02/11/19at 12:24; Start 02/11/19 at 12:00; Stop 02/11/19 at 12:01; Status DC Sodium Bicarbonate (Sodium Bicarb Adult 8.4% Syr) 100 meq 1X ONCE IV Last administered on 02/11/19at 12:24; Start 02/11/19 at 12:15; Stop 02/11/19 at 12:22; Status DC Piperacillin Sod/ Tazobactam Sod 3.375 gm/Sodium Chloride 50 ml @ 100 mls/hr 1X ONCE IV Last administered on 02/11/19at 13:50; Start 02/11/19 at 12:30; Stop 02/11/19 at 12:59; Status DC Vancomycin HCl 1.5 gm/Sodium Chloride 500 ml @ 250 mls/hr 1X ONCE IV Last administered on 02/11/19at 15:58; Start 02/11/19 at 12:30; Stop 02/11/19 at 14:29; Status DC Sodium Chloride 1,000 ml @ 1,000 mls/hr 1X ONCE IV Last administered on 02/11/19at 12:29; Start 02/11/19 at 12:15; Stop 02/11/19 at 13:14; Status DC Sodium Chloride 1,000 ml @ 1,000 mls/hr 1X ONCE IV Last administered on 02/11at 12:29; Start 02/11/19 at 12:15; Stop 02/11/19 at 13:14; Status DC Sodium Chloride 1,000 ml @ 150 mls/hr Q6H40M IV Last administered on 02/11/19at 13:50; Start 02/11/19 at 12:23; Stop 02/11/19 at 14:38; Status DC Sodium Chloride 1,000 ml @ 1,000 mls/hr 1X ONCE IV ; Start 02/11/19 at 12:45; Stop 02/11/19 at 13:44; Status DC Norepinephrine Bitartrate 250 ml @ 14.288 mls/ hr CONT PRN IV SEE I/O RECORD Last administered on 02/11/19at 16:15; Start 02/11/19 at 13:45 Vasopressin 40 unit/Dextrose 102 ml @ 6 mls/hr CONT PRN IV SEE I/O RECORD; Start 02/11/19 at 13:45 Albumin Human 100 ml @ 100 mls/hr PRN Q8HRS PRN IV HYPOTENSION; Start 02/11/19 at 14:45 Piperacillin Sod/ Tazobactam Sod (Zosyn Per Pharmacy) 1 each PRN DAILY PRN MC SEE COMMENTS; Start 02/11/19 at 15:15; Status UNV Piperacillin Sod/ Tazobactam Sod 3.375 gm/Sodium Chloride 50 ml @ 100 mls/hr Q6HRS IV Last administered on 02/12/19at 06:15; Start 02/11/19 at 18:00 Fentanyl Citrate (Fentanyl 2ml Vial) 100 mcg 1X ONCE IV Last administered on 02/11/19at 15:30; Start 02/11/19 at 15:15; Stop 02/11/19 at 15:16; Status DC Magnesium Sulfate/ Dextrose 100 ml @ 100 mls/hr 1X ONCE IV Last administered on 02/11/19 16:10; Start 02/11/19 at 15:15; Stop 02/11/19 at 16:14; Status DC Buspirone HCl (Buspar) 30 mg Q8H NG Last administered on 02/12/19 09:36; Start 02/11/19 at 15:15; Stop 02/13/19 at 07:16 Acetaminophen (Tylenol) 650 mg Q4H NG Last administered on 02/12/19 09:36; Start 02/11/19 at 15:15 Artificial Tears (Artificial Tears) 1 drop Q6HRS OU Last administered on 02/12/19 06:15; Start 02/11/19 at 18:00 Artificial Tears (Artificial Tears) 1 drop PRN Q15MIN PRN OU DRY EYE; Start 02/11/19 at 15:15 Heparin Sodium (Porcine) (Heparin Sodium) 5,000 unit BID SQ Last administered on 02/12/19 09:36; Start 02/11/19 at 15:15 Pantoprazole Sodium (PROTONIX VIAL for IV PUSH) 40 mg DAILYAC IVP Last administered on 02/12/19 09:36; Start 02/11/19 at 15:20 Fentanyl Citrate 30 ml @ 0 mls/hr CONT PRN IV PER PROTOCOL. Last administered on 02/12/19 10:14; Start 02/11/19 at 15:15 Propofol 100 ml @ 0 mls/hr CONT PRN IV PER PROTOCOL.; Start 02/11/19 at 15:15 Midazolam HCl 100 ml @ 0 mls/hr CONT PRN IV PER PROTOCOL. Last administered on 02/11/19at 23:46; Start 02/11/19 at 15:15 Vecuronium [place] (Norcuron Bolus) 8 mg PRN Q1HR PRN IV SHIVERING Last administered on 02/12/19 10:49; Start 02/11/19 at 15:15 Magnesium Sulfate/ Dextrose 100 ml @ 100 mls/hr PRN DAILY PRN IV MAG level 2.4-3.0mg/dl; Start 02/11/19 at 15:15 Magnesium Sulfate 100 ml @ 100 mls/hr PRN DAILY PRN IV MAG level less than 2.4mg/dl; Start 02/11/19 at 15:15 Potassium Chloride/Water 50 ml @ 50 mls/hr PRN DAILY PRN IV K+ level less than 3.1 mEq/l; Start 02/11/19 at 15:15 Potassium Chloride/Water 100 ml @ 100 mls/hr PRN DAILY PRN IV K+ level 3.1- 3.4mEq/L; Start 02/11/19 at 15:15 Sodium Phosphate 20 mmol/Dextrose 256.6667 ml @ 65 mls/hr PRN DAILY PRN IV Phosphrous less than 1mg/dL; Start 02/11/19 at 15:15 Sodium Phosphate 10 mmol/Dextrose 103.3333 ml @ 50 mls/hr PRN DAILY PRN IV Phosphorus is 1 - 2.5mg/dL; Start 02/11/19 at 15:15 Insulin Glargine (Lantus Syringe) 10 unit QHS SQ ; Start 02/11/19 at 21:00; Stop 02/11/19 at 18:32; Status DC Insulin Human Lispro (HumaLOG) 0-7 UNITS Q6HRS SQ ; Start 02/11/19 at 18:00; Stop 02/11/19 at 18:32; Status DC Dextrose (Dextrose 50%-Water Syringe) 12.5 gm PRN Q15MIN PRN IV SEE COMMENTS; Start 02/11/19 at 16:15 Dextrose 250 ml PRN Q15MIN PRN IV SEE COMMENTS; Start 02/11/19 at 16:15 Vancomycin HCl 1 gm/Sodium Chloride 250 ml @ 250 mls/hr Q12H IV ; Start 02/12/19 at 04:15; Status UNV Vancomycin HCl (Vanco Per Pharmacy) 1 each PRN DAILY PRN MC SEE COMMENTS Last administered on 02/11/19at 17:02; Start 02/11/19 at 16:15; Stop 02/12/19 at 09:49; Status DC Vancomycin HCl (Vancomycin Random Level) 1 each 1X ONCE MC ; Start 02/12/19 at 12:30; Stop 02/12/19 at 12:31 Insulin Human Regular 150 unit/ Sodium Chloride 151.5 ml @ 0 mls/hr CONT PRN IV SEE I/O RECORD Last administered on 02/11/19at 18:19; Start 02/11/19 at 18:00 Furosemide (Lasix) 40 mg 1X ONCE IVP Last administered on 02/12/19at 09:36; Start 02/12/19 at 08:30; Stop 02/12/19 at 08:31; Status DC Active Scripts Active Feosol (Ferrous Sulfate) 325 Mg Tablet 325 Mg PO [id number] 30 Days Benzonatate 100 Mg Capsule 100 Mg PO [id number] Days Amlodipine Besylate 10 Mg Tablet 10 Mg PO DAILY 30 Days Reported Tradjenta (Linagliptin) 5 Mg Tablet 5 Mg PO DAILY Vitamin D3 (Cholecalciferol (Vitamin D3)) 1,000 Unit Tablet 1 Tab PO DAILY Trazodone Hcl 150 Mg Tablet 150 Mg PO HS Aspirin Ec (Aspirin) 325 Mg Tablet.dr 1 Tab PO DAILY Metoprolol Tartrate 25 Mg Tablet 1 Tab PO BID NEW MEDICATION BEGINNING 11/21/2014 PM DOSE MONITOR BLOOD PRESSURE DAILY Losartan Potassium 100 Mg Tablet 1 Tab PO DAILY Simvastatin 40 Mg Tablet 40 Mg PO DAILY Hydrocodone-Apap 10-325 (Hydrocodone Bit/Acetaminophen) 1 Each Tablet 1 Tab PO Q8HRS PRN Allergies Allergies: Coded Allergies: KATIE Inhibitors (Verified Allergy, Severe, ANAPHYLATIC SHOCK, 11/20/14) cyclosporine (Verified Allergy, Intermediate, Hives, 11/21/14) indomethacin (Verified Allergy, Intermediate, 05/24/18) ROS Review of System Negative for fever, chills, weight loss, shortness of breath, chest pain, indigestion, hematochezia, melena, and dysuria. Full 14-point review of systems is negative. Physical Exam Physical Examination General: Well-developed, well-nourished white female in no acute distress HEENT: Normocephalic and�atraumatic. Temporal arteries�pulsatile and nontender.� Neck: Supple without bruit, no meningismus� Musculoskeletal: Stability:�see neurologic. Gait exam:�see neurologic. Tone:�see neurologic.�Strength:�see neurologic.� Neurological: Mental Status:orientation, memory, attention span/concentration, language, fund of knowledge: intubated and paralyzed in intensive care unit, no verbal response, no response to pain or voice. Cranial Nerves:�Pupils small, not reactive, no spontaneous extraocular movements. There is no facial asymmetry. All other cranial related problems are negative except as mentioned before.�Reflexes:�0-1+ and symmetric with silent plantar responses. Motor:�paralyzed. Coordination and gait:�not cooperative. Sensory:��not coop erative.� Vitals VITALS Vital Signs Date Time Temp Pulse Resp B/P (MAP) Pulse Ox O2 Delivery O2 Flow Rate FiO2 02/12/19 10:55 18 100 Ventilator 02/12/19 10:00 92.0 02/12/19 10:00 51 Labs Labs Laboratory Tests Test 02/11/19 11:29 02/11/19 11:50 02/11/19 12:00 02/11/19 15:55 Glucose (Fingerstick) 282 mg/dL (70-99) White Blood Count 11.0 x10^3/uL (4.0-11.0) Red Blood Count 3.60 x10^6/uL (3.50-5.40) Hemoglobin 10.3 g/dL (12.0-15.5) Hematocrit 33.6 % (36.0-47.0) Mean Corpuscular Volume 94 fL (79-100) Mean Corpuscular Hemoglobin 29 pg (25-35) Mean Corpuscular Hemoglobin Concent 31 g/dL (31-37) Red Cell Distribution Width 15.4 % (11.5-14.5) Platelet Count 253 x10^3/uL (140-400) Neutrophils (%) (Auto) 54 % (31-73) Lymphocytes (%) (Auto) 40 % (24-48) Monocytes (%) (Auto) 3 % (0-9) Eosinophils (%) (Auto) 2 % (0-3) Basophils (%) (Auto) 1 % (0-3) Neutrophils # (Auto) 5.9 x10^3/uL (1.8-7.7) Lymphocytes # (Auto) 4.4 x10^3/uL (1.0-4.8) Monocytes # (Auto) 0.4 x10^3/uL (0.0-1.1) Eosinophils # (Auto) 0.2 x10^3/uL (0.0-0.7) Basophils # (Auto) 0.1 x10^3/uL (0.0-0.2) Prothrombin Time 15.1 SEC (11.7-14.0) Prothromb Time International Ratio 1.2 (0.8-1.1) D-Dimer (Pam) 3.82 ug/mlFEU (0.00-0.50) Sodium Level 141 mmol/L (136-145) Potassium Level 4.4 mmol/L (3.5-5.1) Chloride Level 108 mmol/L (98-107) Carbon Dioxide Level 17 mmol/L (21-32) Anion Gap 16 (6-14) Blood Urea Nitrogen 28 mg/dL (7-20) Creatinine 2.2 mg/dL (0.6-1.0) Estimated GFR (Cockcroft-Gault) 21.7 BUN/Creatinine Ratio 13 (6-20) Glucose Level 390 mg/dL (70-99) Lactic Acid Level 8.3 mmol/L (0.4-2.0) Calcium Level 8.7 mg/dL (8.5-10.1) Magnesium Level 2.3 mg/dL (1.8-2.4) Total Bilirubin 0.3 mg/dL (0.2-1.0) Aspartate Amino Transf (AST/SGOT) 46 U/L (15-37) Alanine Aminotransferase (ALT/SGPT) 33 U/L (14-59) Alkaline Phosphatase 136 U/L (46-116) Creatine Kinase 99 U/L (26-192) Troponin I Quantitative 0.107 ng/mL (0.000-0.055) EN-Dbj-[id number]-Type Natriuretic Peptide 06115 pg/mL (0-449) Total Protein 6.3 g/dL (6.4-8.2) Albumin 2.8 g/dL (3.4-5.0) Albumin/Globulin Ratio 0.8 (1.0-1.7) Lipase 168 U/L (73-393) O2 Saturation 99 % (92-99) 93 % (92-99) Arterial Blood pH 7.01 (7.35-7.45) 7.23 (7.35-7.45) Arterial Blood pCO2 at Patient Temp 50 mmHg (35-46) 47 mmHg (35-46) Arterial Blood pO2 at Patient Temp 234 mmHg (65-108) 75 mmHg (65-108) Arterial Blood HCO3 13 mmol/L (21-28) 19 mmol/L (21-28) Arterial Blood Base Excess -18 mmol/L (-3-3) -8 mmol/L (-3-3) FiO2 100 80 Arterial Blood pH (Temp corrected) 7.26 Arterial Blood pCO2 (Temp correct) 43 mmHg Arterial Blood pO2 (Temp corrected) 64 mmHg Test 02/11/19 16:26 02/11/19 17:40 02/11/19 17:51 02/11/19 19:49 Glucose (Fingerstick) 254 mg/dL (70-99) 263 mg/dL (70-99) Lactic Acid Level 2.7 mmol/L (0.4-2.0) Troponin I Quantitative 0.765 ng/mL (0.000-0.055) Procalcitonin 1.22 ng/mL (0.00-0.10) O2 Saturation 94 % (92-99) Arterial Blood pH 7.19 (7.35-7.45) Arterial Blood pH (Temp corrected) 7.23 Arterial Blood pCO2 at Patient Temp 51 mmHg (35-46) Arterial Blood pCO2 (Temp correct) 43 mmHg Arterial Blood pO2 at Patient Temp 76 mmHg (65-108) Arterial Blood pO2 (Temp corrected) 59 mmHg Arterial Blood HCO3 19 mmol/L (21-28) Arterial Blood Base Excess -9 mmol/L (-3-3) FiO2 80 Test 02/11/19 21:27 02/11/19 22:35 02/11/19 23:51 02/12/19 01:00 Glucose (Fingerstick) 146 mg/dL (70-99) 110 mg/dL (70-99) 94 mg/dL (70-99) 79 mg/dL (70-99) Test 02/12/19 02:18 02/12/19 06:18 02/12/19 06:20 02/12/19 08:30 Glucose (Fingerstick) 78 mg/dL (70-99) 105 mg/dL (70-99) Creatinine 2.3 mg/dL (0.6-1.0) Estimated GFR (Cockcroft-Gault) 20.6 O2 Saturation 99 % (92-99) Arterial Blood pH 7.43 (7.35-7.45) Arterial Blood pH (Temp corrected) 7.49 Arterial Blood pCO2 at Patient Temp 24 mmHg (35-46) Arterial Blood pCO2 (Temp correct) 21 mmHg Arterial Blood pO2 at Patient Temp 143 mmHg (65-108) Arterial Blood pO2 (Temp corrected) 122 mmHg Arterial Blood HCO3 16 mmol/L (21-28) Arterial Blood Base Excess -7 mmol/L (-3-3) FiO2 60 Test 02/12/19 10:45 Sodium Level 146 mmol/L (136-145) Potassium Level 4.2 mmol/L (3.5-5.1) Chloride Level 115 mmol/L (98-107) Carbon Dioxide Level 20 mmol/L (21-32) Anion Gap 11 (6-14) Blood Urea Nitrogen 36 mg/dL (7-20) Creatinine 2.4 mg/dL (0.6-1.0) Estimated GFR (Cockcroft-Gault) 19.6 BUN/Creatinine Ratio 15 (6-20) Glucose Level 101 mg/dL (70-99) Calcium Level 7.9 mg/dL (8.5-10.1) Phosphorus Level 3.9 mg/dL (2.6-4.7) Magnesium Level 2.0 mg/dL (1.8-2.4) Total Bilirubin 0.5 mg/dL (0.2-1.0) Aspartate Amino Transf (AST/SGOT) 65 U/L (15-37) Alanine Aminotransferase (ALT/SGPT) 47 U/L (14-59) Alkaline Phosphatase 94 U/L (46-116) Total Protein 5.3 g/dL (6.4-8.2) Albumin 2.3 g/dL (3.4-5.0) Albumin/Globulin Ratio 0.8 (1.0-1.7) Laboratory Tests Test 02/11/19 11:29 02/11/19 11:50 02/11/19 12:00 02/11/19 15:55 Glucose (Fingerstick) 282 mg/dL (70-99) White Blood Count 11.0 x10^3/uL (4.0-11.0) Red Blood Count 3.60 x10^6/uL (3.50-5.40) Hemoglobin 10.3 g/dL (12.0-15.5) Hematocrit 33.6 % (36.0-47.0) Mean Corpuscular Volume 94 fL (79-100) Mean Corpuscular Hemoglobin 29 pg (25-35) Mean Corpuscular Hemoglobin Concent 31 g/dL (31-37) Red Cell Distribution Width 15.4 % (11.5-14.5) Platelet Count 253 x10^3/uL (140-400) Neutrophils (%) (Auto) 54 % (31-73) Lymphocytes (%) (Auto) 40 % (24-48) Monocytes (%) (Auto) 3 % (0-9) Eosinophils (%) (Auto) 2 % (0-3) Basophils (%) (Auto) 1 % (0-3) Neutrophils # (Auto) 5.9 x10^3/uL (1.8-7.7) Lymphocytes # (Auto) 4.4 x10^3/uL (1.0-4.8) Monocytes # (Auto) 0.4 x10^3/uL (0.0-1.1) Eosinophils # (Auto) 0.2 x10^3/uL (0.0-0.7) Basophils # (Auto) 0.1 x10^3/uL (0.0-0.2) Prothrombin Time 15.1 SEC (11.7-14.0) Prothromb Time International Ratio 1.2 (0.8-1.1) D-Dimer (Pam) 3.82 ug/mlFEU (0.00-0.50) Sodium Level 141 mmol/L (136-145) Potassium Level 4.4 mmol/L (3.5-5.1) Chloride Level 108 mmol/L (98-107) Carbon Dioxide Level 17 mmol/L (21-32) Anion Gap 16 (6-14) Blood Urea Nitrogen 28 mg/dL (7-20) Creatinine 2.2 mg/dL (0.6-1.0) Estimated GFR (Cockcroft-Gault) 21.7 BUN/Creatinine Ratio 13 (6-20) Glucose Level 390 mg/dL (70-99) Lactic Acid Level 8.3 mmol/L (0.4-2.0) Calcium Level 8.7 mg/dL (8.5-10.1) Magnesium Level 2.3 mg/dL (1.8-2.4) Total Bilirubin 0.3 mg/dL (0.2-1.0) Aspartate Amino Transf (AST/SGOT) 46 U/L (15-37) Alanine Aminotransferase (ALT/SGPT) 33 U/L (14-59) Alkaline Phosphatase 136 U/L (46-116) Creatine Kinase 99 U/L (26-192) Troponin I Quantitative 0.107 ng/mL (0.000-0.055) GH-Qgo-Q-Type Natriuretic Peptide 85851 pg/mL (0-449) Total Protein 6.3 g/dL (6.4-8.2) Albumin 2.8 g/dL (3.4-5.0) Albumin/Globulin Ratio 0.8 (1.0-1.7) Lipase 168 U/L (73-393) O2 Saturation 99 % (92-99) 93 % (92-99) Arterial Blood pH 7.01 (7.35-7.45) 7.23 (7.35-7.45) Arterial Blood pCO2 at Patient Temp 50 mmHg (35-46) 47 mmHg (35-46) Arterial Blood pO2 at Patient Temp 234 mmHg (65-108) 75 mmHg (65-108) Arterial Blood HCO3 13 mmol/L (21-28) 19 mmol/L (21-28) Arterial Blood Base Excess -18 mmol/L (-3-3) -8 mmol/L (-3-3) FiO2 100 80 Arterial Blood pH (Temp corrected) 7.26 Arterial Blood pCO2 (Temp correct) 43 mmHg Arterial Blood pO2 (Temp corrected) 64 mmHg Test 02/11/19 16:26 02/11/19 17:40 02/11/19 17:51 02/11/19 19:49 Glucose (Fingerstick) 254 mg/dL (70-99) 263 mg/dL (70-99) Lactic Acid Level 2.7 mmol/L (0.4-2.0) Troponin I Quantitative 0.765 ng/mL (0.000-0.055) Procalcitonin 1.22 ng/mL (0.00-0.10) O2 Saturation 94 % (92-99) Arterial Blood pH 7.19 (7.35-7.45) Arterial Blood pH (Temp corrected) 7.23 Arterial Blood pCO2 at Patient Temp 51 mmHg (35-46) Arterial Blood pCO2 (Temp correct) 43 mmHg Arterial Blood pO2 at Patient Temp 76 mmHg (65-108) Arterial Blood pO2 (Temp corrected) 59 mmHg Arterial Blood HCO3 19 mmol/L (21-28) Arterial Blood Base Excess -9 mmol/L (-3-3) FiO2 80 Test 02/11/19 21:27 02/11/19 22:35 02/11/19 23:51 02/12/19 01:00 Glucose (Fingerstick) 146 mg/dL (70-99) 110 mg/dL (70-99) 94 mg/dL (70-99) 79 mg/dL (70-99) Test 02/12/19 02:18 02/12/19 06:18 02/12/19 06:20 02/12/19 08:30 Glucose (Fingerstick) 78 mg/dL (70-99) 105 mg/dL (70-99) Creatinine 2.3 mg/dL (0.6-1.0) Estimated GFR (Cockcroft-Gault) 20.6 O2 Saturation 99 % (92-99) Arterial Blood pH 7.43 (7.35-7.45) Arterial Blood pH (Temp corrected) 7.49 Arterial Blood pCO2 at Patient Temp 24 mmHg (35-46) Arterial Blood pCO2 (Temp correct) 21 mmHg Arterial Blood pO2 at Patient Temp 143 mmHg (65-108) Arterial Blood pO2 (Temp corrected) 122 mmHg Arterial Blood HCO3 16 mmol/L (21-28) Arterial Blood Base Excess -7 mmol/L (-3-3) FiO2 60 Test 02/12/19 10:45 Sodium Level 146 mmol/L (136-145) Potassium Level 4.2 mmol/L (3.5-5.1) Chloride Level 115 mmol/L (98-107) Carbon Dioxide Level 20 mmol/L (21-32) Anion Gap 11 (6-14) Blood Urea Nitrogen 36 mg/dL (7-20) Creatinine 2.4 mg/dL (0.6-1.0) Estimated GFR (Cockcroft-Gault) 19.6 BUN/Creatinine Ratio 15 (6-20) Glucose Level 101 mg/dL (70-99) Calcium Level 7.9 mg/dL (8.5-10.1) Phosphorus Level 3.9 mg/dL (2.6-4.7) Magnesium Level 2.0 mg/dL (1.8-2.4) Total Bilirubin 0.5 mg/dL (0.2-1.0) Aspartate Amino Transf (AST/SGOT) 65 U/L (15-37) Alanine Aminotransferase (ALT/SGPT) 47 U/L (14-59) Alkaline Phosphatase 94 U/L (46-116) Total Protein 5.3 g/dL (6.4-8.2) Albumin 2.3 g/dL (3.4-5.0) Albumin/Globulin Ratio 0.8 (1.0-1.7) Images Images CT head without IV contrast COMPARISON: 05/23/2018. FINDINGS: No pathologic extra-axial or intra-axial fluid collection. Stable encephalomalacia in the left cerebellar hemisphere with compensatory dilation of the occipital horn of the left lateral ventricle. Stable encephalomalacia in the right frontal lobe likely old infarct. No acute intracranial bleed. Suboccipital craniotomy noted. No focal loss of pearson-white differentiation. Orbits are within normal limits. No suspicious calvarial lesion. Visualized paranasal sinuses and mastoid air cells are clear. IMPRESSION: 1. No acute intracranial bleed. 2. Stable encephalomalacia likely from prior infarct in the left cerebellar hemisphere and right frontal lobe. If concern for acute ischemic stroke is high, please consider MRI brain. Assessment/Plan Assessment/Plan Impression: Anoxic encephalopathy, still in the midst of the hypothermia protocol, too soon to make a prognosis. Prior left cerebellar and right frontal infarcts. Recommendations: Discussed with patient's family I will reexamine tomorrow Thank you for letting me help with the patient's care. MARCY PAUL MD Feb 12, 2019 11:30
--- NOTE | 2019-02-12 12:27 | PDOC2 ---
CONSULT Date of Consult Date of Consult DATE: 02/12/19 TIME: 12:13 History of Present Illness Reason for Visit: Pt is a 78-year-old female who is currently intubated and sedated, unable to provide history of present illness, past medical history or review of systems. According to the medical r ecord, she is a jail resident, who was recently being treated for pneumonia. Over the last several days, she developed worsening shortness of air and cough. She was found to be hypoxic on 5 liters of oxygen and was placed on CPAP. On arrival to the ER, she was pale and pulseless status post successful CPR. She is now on a cooling blanket. Levophed is now off. A chest x-ray on admission showed opacities in the right upper lobe and right perihilar lung as well as diffuse interstitial opacities. Blood cultures were ordered and now show gram-positive cocci in chains seen in 1 of 2 bottles. She is currently on vancomycin and Zosyn. PAST MEDICAL HISTORY: CVA, Arnold-Chiari malformation, congenital coronary artery disease, hypertension, sleep apnea, oxygen dependent p.r.n., diabetes, history of ovarian cancer, skin cancer, radiation therapy with pellet placement into bilateral eyes. Legally blind. Chronic kidney disease stage 3, iron deficiency anemia. History E. coli UTI Past Medical History Cardiovascular: CAD, HTN, Hyperlipidemia Pulmonary: Other (sleep apnea) CENTRAL NERVOUS SYSTEM: CVA, TIA GI: No pertinent hx Heme/Onc: No pertinent hx Hepatobiliary: No pertinent hx Psych: No pertinent hx Musculoskeletal: Other (fractures) Rheumatologic: No pertinent hx Infectious disease: No pertinent hx ENT: Other (legally blind) Renal/: Other (ovarian cysts) Endocrine: Diabetes Dermatology: Basal cell Past Surgical History Past Surgical History: Appendectomy, Cholecystectomy, Cataract Removal, Tubal Ligation, Tonsillectomy, Hysterectomy, Other (craniotomy for Arnold-Chiari malformation, rectocele/cystocele, bilateral carpal tunnel, left wrist fracture repair, rotator cuff, partial thyroidectomy) Family History Family History: Heart Disease Social History No ALCOHOL: none Drugs: None Lives: with Family Current Problem List Problem List Problems Medical Problems: (1) Anemia Status: Acute (2) Cardiorespiratory arrest Status: Acute (3) Elevated troponin I level Status: Acute (4) HCAP (healthcare-associated pneumonia) Status: Acute (5) Hypoalbuminemia Status: Acute (6) Metabolic acidosis with respiratory acidosis Status: Acute (7) Pulmonary edema Status: Acute (8) Renal insufficiency Status: Acute (9) Severe sepsis Status: Acute (10) Uncontrolled diabetes mellitus Status: Acute Current Medications Current Medications Current Medications Midazolam HCl 100 ml @ 0 mls/hr 1X ONCE IV Last administered on 02/11/19at 12:24; Start 02/11/19 at 12:00; Stop 02/11/19 at 12:01; Status DC Sodium Bicarbonate (Sodium Bicarb Adult 8.4% Syr) 100 meq 1X ONCE IV Last administered on 02/11/19at 12:24; Start 02/11/19 at 12:15; Stop 02/11/19 at 12:22; Status DC Piperacillin Sod/ Tazobactam Sod 3.375 gm/Sodium Chloride 50 ml @ 100 mls/hr 1X ONCE IV Last administered on 02/11/19at 13:50; Start 02/11/19 at 12:30; Stop 02/11/19 at 12:59; Status DC Vancomycin HCl 1.5 gm/Sodium Chloride 500 ml @ 250 mls/hr 1X ONCE IV Last administered on 02/11/19at 15:58; Start 02/11/19 at 12:30; Stop 02/11/19 at 14:29; Status DC Sodium Chloride 1,000 ml @ 1,000 mls/hr 1X ONCE IV Last administered on 02/11/19at 12:29; Start 02/11/19 at 12:15; Stop 02/11/19 at 13:14; Status DC Sodium Chloride 1,000 ml @ 1,000 mls/hr 1X ONCE IV Last administered on 02/11/19at 12:29; Start 02/11/19 at 12:15; Stop 02/11/19 at 13:14; Status DC Sodium Chloride 1,000 ml @ 150 mls/hr Q6H40M IV Last administered on 02/11/19at 13:50; Start 02/11/19 at 12:23; Stop 02/11/19 at 14:38; Status DC Sodium Chloride 1,000 ml @ 1,000 mls/hr 1X ONCE IV ; Start 02/11/19 at 12:45; Stop 02/11/19 at 13:44; Status DC Norepinephrine Bitartrate 250 ml @ 14.288 mls/ hr CONT PRN IV SEE I/O RECORD Last administered on 02/11/19at 16:15; Start 02/11/19 at 13:45 Vasopressin 40 unit/Dextrose 102 ml @ 6 mls/hr CONT PRN IV SEE I/O RECORD; Start 02/11/19 at 13:45 Albumin Human 100 ml @ 100 mls/hr PRN Q8HRS PRN IV HYPOTENSION; Start 02/11/19 at 14:45 Piperacillin Sod/ Tazobactam Sod (Zosyn Per Pharmacy) 1 each PRN DAILY PRN MC SEE COMMENTS; Start 02/11/19 at 15:15; Status UNV Piperacillin Sod/ Tazobactam Sod 3.375 gm/Sodium Chloride 50 ml @ 100 mls/hr Q6HRS IV Last administered on 02/12/19at 06:15; Start 02/11/19 at 18:00 Fentanyl Citrate (Fentanyl 2ml Vial) 100 mcg 1X ONCE IV Last administered on 02/11/19at 15:30; Start 02/11/19 at 15:15; Stop 02/11/19 at 15:16; Status DC Magnesium Sulfate/ Dextrose 100 ml @ 100 mls/hr 1X ONCE IV Last administered on 02/11/19at 16:10; Start 02/11/19 at 15:15; Stop 02/11/19 at 16:14; Status DC Buspirone HCl (Buspar) 30 mg Q8H NG Last administered on 02/12/19at 09:36; Start 02/11/19 at 15:15; Stop 02/13/19 at 07:16 Acetaminophen (Tylenol) 650 mg Q4H NG Last administered on 02/12/19at 09:36; Start 02/11/19 at 15:15 Artificial Tears (Artificial Tears) 1 drop Q6HRS OU Last administered on 02/12at 06:15; Start 02/11/19 at 18:00 Artificial Tears (Artificial Tears) 1 drop PRN Q15MIN PRN OU DRY EYE; Start 02/11/19 at 15:15 Heparin Sodium (Porcine) (Heparin Sodium) 5,000 unit BID SQ Last administered on 02/12/19at 09:36; Start 02/11/19 at 15:15 Pantoprazole Sodium (PROTONIX VIAL for IV PUSH) 40 mg DAILYAC IVP Last administered on 02/12/19at 09:36; Start 02/11/19 at 15:20 Fentanyl Citrate 30 ml @ 0 mls/hr CONT PRN IV PER PROTOCOL. Last administered on 02/12/19at 10:14; Start 02/11/19 at 15:15 Propofol 100 ml @ 0 mls/hr CONT PRN IV PER PROTOCOL.; Start 02/11/19 at 15:15 Midazolam HCl 100 ml @ 0 mls/hr CONT PRN IV PER PROTOCOL. Last administered on 02/11/19at 23:46; Start 02/11/19 at 15:15 Vecuronium [place] (Norcuron Bolus) 8 mg PRN Q1HR PRN IV SHIVERING Last administered on 02/12/19at 10:49; Start 02/11/19 at 15:15 Magnesium Sulfate/ Dextrose 100 ml @ 100 mls/hr PRN DAILY PRN IV MAG level 2.4-3.0mg/dl; Start 02/11/19 at 15:15 Magnesium Sulfate 100 ml @ 100 mls/hr PRN DAILY PRN IV MAG level less than 2.4mg/dl; Start 02/11/19 at 15:15 Potassium Chloride/Water 50 ml @ 50 mls/hr PRN DAILY PRN IV K+ level less than 3.1 mEq/l; Start 02/11/19 at 15:15 Potassium Chloride/Water 100 ml @ 100 mls/hr PRN DAILY PRN IV K+ level 3.1- 3.4mEq/L; Start 02/11/19 at 15:15 Sodium Phosphate 20 mmol/Dextrose 256.6667 ml @ 65 mls/hr PRN DAILY PRN IV Phosphrous less than 1mg/dL; Start 02/11/19 at 15:15 Sodium Phosphate 10 mmol/Dextrose 103.3333 ml @ 50 mls/hr PRN DAILY PRN IV Phosphorus is 1 - 2.5mg/dL; Start 02/11/19 at 15:15 Insulin Glargine (Lantus Syringe) 10 unit QHS SQ ; Start 02/11/19 at 21:00; Stop 02/11/19 at 18:32; Status DC Insulin Human Lispro (HumaLOG) 0-7 UNITS Q6HRS SQ ; Start 02/11/19 at 18:00; Stop 02/11/19 at 18:32; Status DC Dextrose (Dextrose 50%-Water Syringe) 12.5 gm PRN Q15MIN PRN IV SEE COMMENTS; Start 02/11/19 at 16:15 Dextrose 250 ml PRN Q15MIN PRN IV SEE COMMENTS; Start 02/11/19 at 16:15 Vancomycin HCl 1 gm/Sodium Chloride 250 ml @ 250 mls/hr Q12H IV ; Start 02/12/19 at 04:15; Status UNV Vancomycin HCl (Vanco Per Pharmacy) 1 each PRN DAILY PRN MC SEE COMMENTS Last administered on 02/11/19at 17:02; Start 02/11/19 at 16:15; Stop 02/12/19 at 09:49; Status DC Vancomycin HCl (Vancomycin Random Level) 1 each 1X ONCE MC ; Start 02/12/19 at 12:30; Stop 02/12/19 at 12:31 Insulin Human Regular 150 unit/ Sodium Chloride 151.5 ml @ 0 mls/hr CONT PRN IV SEE I/O RECORD Last administered on 02/11/19at 18:19; Start 02/11/19 at 18:00 Furosemide (Lasix) 40 mg 1X ONCE IVP Last administered on 02/12/19at 09:36; Start 02/12/19 at 08:30; Stop 02/12/19 at 08:31; Status DC Active Scripts Active Feosol (Ferrous Sulfate) 325 Mg Tablet 325 Mg PO [id number] 30 Days Benzonatate 100 Mg Capsule 100 Mg PO [id number] Days Amlodipine Besylate 10 Mg Tablet 10 Mg PO DAILY 30 Days Reported Tradjenta (Linagliptin) 5 Mg Tablet 5 Mg PO DAILY Vitamin D3 (Cholecalciferol (Vitamin D3)) 1,000 Unit Tablet 1 Tab PO DAILY Trazodone Hcl 150 Mg Tablet 150 Mg PO HS Aspirin Ec (Aspirin) 325 Mg Tablet.dr 1 Tab PO DAILY Metoprolol Tartrate 25 Mg Tablet 1 Tab PO BID NEW MEDICATION BEGINNING 11/21/2014 PM DOSE MONITOR BLOOD PRESSURE DAILY Losartan Potassium 100 Mg Tablet 1 Tab PO DAILY Simvastatin 40 Mg Tablet 40 Mg PO DAILY Hydrocodone-Apap 10-325 (Hydrocodone Bit/Acetaminophen) 1 Each Tablet 1 Tab PO Q8HRS PRN Allergies Allergies: Coded Allergies: KATIE Inhibitors (Verified Allergy, Severe, ANAPHYLATIC SHOCK, 11/20/14) cyclosporine (Verified Allergy, Intermediate, Hives, 11/21/14) indomethacin (Verified Allergy, Intermediate, 05/24/18) ROS Review of System Unable to Obtain Physical Exam Physical Exam GENERAL: Orally intubated and sedated. HEENT: ETT and OGT in place. NECK: Supple. LUNGS: Coarse. HEART: S1 and S2 irregular. ABDOMEN: Soft. GENITOURINARY: Lovett in place. EXTREMITIES:trace edema LE+. No cyanosis. SKIN: cooling blanket in place. NEUROLOGIC: Unresponsive/sedated. Vital Signs Vital Signs Date Time Temp Pulse Resp B/P (MAP) Pulse Ox O2 Delivery O2 Flow Rate FiO2 02/12/19 12:00 Mechanical Ventilator 02/12/19 12:00 90.6 02/12/19 12:00 38 18 100 Assessment & Plan FOZIA - s/p Code -ATN , Oligo-anuric Hypotensive/ sepsis Off pressors this am E-Lytes and acid base stable, No emergent indication for [employer] IV Lasix 1 dose given this am- some improvement in uop Supportive care, Monitor, I/O, avoid nephrotoxins CKD stage 3 Baseline 1.5-1.[address] Soriano Sepsis with Gram-positive cocci bacteremia Healthcare-acquired pneumonia. Status post cardiopulmonary arrest. Diabetes mellitus. Discussed with daughter and other family members at bedside Labs Labs Laboratory Tests Test 02/11/19 11:29 02/11/19 11:50 02/11/19 12:00 02/11/19 15:55 Glucose (Fingerstick) 282 mg/dL (70-99) White Blood Count 11.0 x10^3/uL (4.0-11.0) Red Blood Count 3.60 x10^6/uL (3.50-5.40) Hemoglobin 10.3 g/dL (12.0-15.5) Hematocrit 33.6 % (36.0-47.0) Mean Corpuscular Volume 94 fL (79-100) Mean Corpuscular Hemoglobin 29 pg (25-35) Mean Corpuscular Hemoglobin Concent 31 g/dL (31-37) Red Cell Distribution Width 15.4 % (11.5-14.5) Platelet Count 253 x10^3/uL (140-400) Neutrophils (%) (Auto) 54 % (31-73) Lymphocytes (%) (Auto) 40 % (24-48) Monocytes (%) (Auto) 3 % (0-9) Eosinophils (%) (Auto) 2 % (0-3) Basophils (%) (Auto) 1 % (0-3) Neutrophils # (Auto) 5.9 x10^3/uL (1.8-7.7) Lymphocytes # (Auto) 4.4 x10^3/uL (1.0-4.8) Monocytes # (Auto) 0.4 x10^3/uL (0.0-1.1) Eosinophils # (Auto) 0.2 x10^3/uL (0.0-0.7) Basophils # (Auto) 0.1 x10^3/uL (0.0-0.2) Prothrombin Time 15.1 SEC (11.7-14.0) Prothromb Time International Ratio 1.2 (0.8-1.1) D-Dimer (Pam) 3.82 ug/mlFEU (0.00-0.50) Sodium Level 141 mmol/L (136-145) Potassium Level 4.4 mmol/L (3.5-5.1) Chloride Level 108 mmol/L (98-107) Carbon Dioxide Level 17 mmol/L (21-32) Anion Gap 16 (6-14) Blood Urea Nitrogen 28 mg/dL (7-20) Creatinine 2.2 mg/dL (0.6-1.0) Estimated GFR (Cockcroft-Gault) 21.7 BUN/Creatinine Ratio 13 (6-20) Glucose Level 390 mg/dL (70-99) Lactic Acid Level 8.3 mmol/L (0.4-2.0) Calcium Level 8.7 mg/dL (8.5-10.1) Magnesium Level 2.3 mg/dL (1.8-2.4) Total Bilirubin 0.3 mg/dL (0.2-1.0) Aspartate Amino Transf (AST/SGOT) 46 U/L (15-37) Alanine Aminotransferase (ALT/SGPT) 33 U/L (14-59) Alkaline Phosphatase 136 U/L (46-116) Creatine Kinase 99 U/L (26-192) Troponin I Quantitative 0.107 ng/mL (0.000-0.055) IJ-Spm-Y-Type Natriuretic Peptide 12137 pg/mL (0-449) Total Protein 6.3 g/dL (6.4-8.2) Albumin 2.8 g/dL (3.4-5.0) Albumin/Globulin Ratio 0.8 (1.0-1.7) Lipase 168 U/L (73-393) O2 Saturation 99 % (92-99) 93 % (92-99) Arterial Blood pH 7.01 (7.35-7.45) 7.23 (7.35-7.45) Arterial Blood pCO2 at Patient Temp 50 mmHg (35-46) 47 mmHg (35-46) Arterial Blood pO2 at Patient Temp 234 mmHg (65-108) 75 mmHg (65-108) Arterial Blood HCO3 13 mmol/L (21-28) 19 mmol/L (21-28) Arterial Blood Base Excess -18 mmol/L (-3-3) -8 mmol/L (-3-3) FiO2 100 80 Arterial Blood pH (Temp corrected) 7.26 Arterial Blood pCO2 (Temp correct) 43 mmHg Arterial Blood pO2 (Temp corrected) 64 mmHg Test 02/11/19 16:26 02/11/19 17:40 02/11/19 17:51 02/11/19 19:49 Glucose (Fingerstick) 254 mg/dL (70-99) 263 mg/dL (70-99) Lactic Acid Level 2.7 mmol/L (0.4-2.0) Troponin I Quantitative 0.765 ng/mL (0.000-0.055) Procalcitonin 1.22 ng/mL (0.00-0.10) O2 Saturation 94 % (92-99) Arterial Blood pH 7.19 (7.35-7.45) Arterial Blood pH (Temp corrected) 7.23 Arterial Blood pCO2 at Patient Temp 51 mmHg (35-46) Arterial Blood pCO2 (Temp correct) 43 mmHg Arterial Blood pO2 at Patient Temp 76 mmHg (65-108) Arterial Blood pO2 (Temp corrected) 59 mmHg Arterial Blood HCO3 19 mmol/L (21-28) Arterial Blood Base Excess -9 mmol/L (-3-3) FiO2 80 Test 02/11/19 21:27 02/11/19 22:35 02/11/19 23:51 02/12/19 01:00 Glucose (Fingerstick) 146 mg/dL (70-99) 110 mg/dL (70-99) 94 mg/dL (70-99) 79 mg/dL (70-99) Test 02/12/19 02:18 02/12/19 06:18 02/12/19 06:20 02/12/19 08:30 Glucose (Fingerstick) 78 mg/dL (70-99) 105 mg/dL (70-99) Creatinine 2.3 mg/dL (0.6-1.0) Estimated GFR (Cockcroft-Gault) 20.6 O2 Saturation 99 % (92-99) Arterial Blood pH 7.43 (7.35-7.45) Arterial Blood pH (Temp corrected) 7.49 Arterial Blood pCO2 at Patient Temp 24 mmHg (35-46) Arterial Blood pCO2 (Temp correct) 21 mmHg Arterial Blood pO2 at Patient Temp 143 mmHg (65-108) Arterial Blood pO2 (Temp corrected) 122 mmHg Arterial Blood HCO3 16 mmol/L (21-28) Arterial Blood Base Excess -7 mmol/L (-3-3) FiO2 60 Test 02/12/19 10:45 White Blood Count 6.7 x10^3/uL (4.0-11.0) Red Blood Count 3.03 x10^6/uL (3.50-5.40) Hemoglobin 8.8 g/dL (12.0-15.5) Hematocrit 26.3 % (36.0-47.0) Mean Corpuscular Volume 87 fL (79-100) Mean Corpuscular Hemoglobin 29 pg (25-35) Mean Corpuscular Hemoglobin Concent 33 g/dL (31-37) Red Cell Distribution Width 14.6 % (11.5-14.5) Platelet Count 147 x10^3/uL (140-400) Neutrophils (%) (Auto) 81 % (31-73) Lymphocytes (%) (Auto) 12 % (24-48) Monocytes (%) (Auto) 6 % (0-9) Eosinophils (%) (Auto) 0 % (0-3) Basophils (%) (Auto) 0 % (0-3) Neutrophils # (Auto) 5.4 x10^3/uL (1.8-7.7) Lymphocytes # (Auto) 0.8 x10^3/uL (1.0-4.8) Monocytes # (Auto) 0.4 x10^3/uL (0.0-1.1) Eosinophils # (Auto) 0.0 x10^3/uL (0.0-0.7) Basophils # (Auto) 0.0 x10^3/uL (0.0-0.2) Prothrombin Time 15.3 SEC (11.7-14.0) Prothromb Time International Ratio 1.2 (0.8-1.1) Activated Partial Thromboplast Time 45 SEC (24-38) Fibrinogen 451 mg/dL (200-440) Sodium Level 146 mmol/L (136-145) Potassium Level 4.2 mmol/L (3.5-5.1) Chloride Level 115 mmol/L (98-107) Carbon Dioxide Level 20 mmol/L (21-32) Anion Gap 11 (6-14) Blood Urea Nitrogen 36 mg/dL (7-20) Creatinine 2.4 mg/dL (0.6-1.0) Estimated GFR (Cockcroft-Gault) 19.6 BUN/Creatinine Ratio 15 (6-20) Glucose Level 101 mg/dL (70-99) Calcium Level 7.9 mg/dL (8.5-10.1) Phosphorus Level 3.9 mg/dL (2.6-4.7) Magnesium Level 2.0 mg/dL (1.8-2.4) Total Bilirubin 0.5 mg/dL (0.2-1.0) Aspartate Amino Transf (AST/SGOT) 65 U/L (15-37) Alanine Aminotransferase (ALT/SGPT) 47 U/L (14-59) Alkaline Phosphatase 94 U/L (46-116) Total Protein 5.3 g/dL (6.4-8.2) Albumin 2.3 g/dL (3.4-5.0) Albumin/Globulin Ratio 0.8 (1.0-1.7) Laboratory Tests Test 02/11/19 15:55 02/11/19 16:26 02/11/19 17:40 02/11/19 17:51 O2 Saturation 93 % (92-99) Arterial Blood pH 7.23 (7.35-7.45) Arterial Blood pH (Temp corrected) 7.26 Arterial Blood pCO2 at Patient Temp 47 mmHg (35-46) Arterial Blood pCO2 (Temp correct) 43 mmHg Arterial Blood pO2 at Patient Temp 75 mmHg (65-108) Arterial Blood pO2 (Temp corrected) 64 mmHg Arterial Blood HCO3 19 mmol/L (21-28) Arterial Blood Base Excess -8 mmol/L (-3-3) FiO2 80 Glucose (Fingerstick) 254 mg/dL (70-99) 263 mg/dL (70-99) Lactic Acid Level 2.7 mmol/L (0.4-2.0) Troponin I Quantitative 0.765 ng/mL (0.000-0.055) Procalcitonin 1.22 ng/mL (0.00-0.10) Test 02/11/19 19:49 02/11/19 21:27 02/11/19 22:35 02/11/19 23:51 O2 Saturation 94 % (92-99) Arterial Blood pH 7.19 (7.35-7.45) Arterial Blood pH (Temp corrected) 7.23 Arterial Blood pCO2 at Patient Temp 51 mmHg (35-46) Arterial Blood pCO2 (Temp correct) 43 mmHg Arterial Blood pO2 at Patient Temp 76 mmHg (65-108) Arterial Blood pO2 (Temp corrected) 59 mmHg Arterial Blood HCO3 19 mmol/L (21-28) Arterial Blood Base Excess -9 mmol/L (-3-3) FiO2 80 Glucose (Fingerstick) 146 mg/dL (70-99) 110 mg/dL (70-99) 94 mg/dL (70-99) Test 02/12/19 01:00 02/12/19 02:18 02/12/19 06:18 02/12/19 06:20 Glucose (Fingerstick) 79 mg/dL (70-99) 78 mg/dL (70-99) 105 mg/dL (70-99) Creatinine 2.3 mg/dL (0.6-1.0) Estimated GFR (Cockcroft-Gault) 20.6 Test 02/12/19 08:30 02/12/19 10:45 O2 Saturation 99 % (92-99) Arterial Blood pH 7.43 (7.35-7.45) Arterial Blood pH (Temp corrected) 7.49 Arterial Blood pCO2 at Patient Temp 24 mmHg (35-46) Arterial Blood pCO2 (Temp correct) 21 mmHg Arterial Blood pO2 at Patient Temp 143 mmHg (65-108) Arterial Blood pO2 (Temp corrected) 122 mmHg Arterial Blood HCO3 16 mmol/L (21-28) Arterial Blood Base Excess -7 mmol/L (-3-3) FiO2 60 White Blood Count 6.7 x10^3/uL (4.0-11.0) Red Blood Count 3.03 x10^6/uL (3.50-5.40) Hemoglobin 8.8 g/dL (12.0-15.5) Hematocrit 26.3 % (36.0-47.0) Mean Corpuscular Volume 87 fL (79-100) Mean Corpuscular Hemoglobin 29 pg (25-35) Mean Corpuscular Hemoglobin Concent 33 g/dL (31-37) Red Cell Distribution Width 14.6 % (11.5-14.5) Platelet Count 147 x10^3/uL (140-400) Neutrophils (%) (Auto) 81 % (31-73) Lymphocytes (%) (Auto) 12 % (24-48) Monocytes (%) (Auto) 6 % (0-9) Eosinophils (%) (Auto) 0 % (0-3) Basophils (%) (Auto) 0 % (0-3) Neutrophils # (Auto) 5.4 x10^3/uL (1.8-7.7) Lymphocytes # (Auto) 0.8 x10^3/uL (1.0-4.8) Monocytes # (Auto) 0.4 x10^3/uL (0.0-1.1) Eosinophils # (Auto) 0.0 x10^3/uL (0.0-0.7) Basophils # (Auto) 0.0 x10^3/uL (0.0-0.2) Prothrombin Time 15.3 SEC (11.7-14.0) Prothromb Time International Ratio 1.2 (0.8-1.1) Activated Partial Thromboplast Time 45 SEC (24-38) Fibrinogen 451 mg/dL (200-440) Sodium Level 146 mmol/L (136-145) Potassium Level 4.2 mmol/L (3.5-5.1) Chloride Level 115 mmol/L (98-107) Carbon Dioxide Level 20 mmol/L (21-32) Anion Gap 11 (6-14) Blood Urea Nitrogen 36 mg/dL (7-20) Creatinine 2.4 mg/dL (0.6-1.0) Estimated GFR (Cockcroft-Gault) 19.6 BUN/Creatinine Ratio 15 (6-20) Glucose Level 101 mg/dL (70-99) Calcium Level 7.9 mg/dL (8.5-10.1) Phosphorus Level 3.9 mg/dL (2.6-4.7) Magnesium Level 2.0 mg/dL (1.8-2.4) Total Bilirubin 0.5 mg/dL (0.2-1.0) Aspartate Amino Transf (AST/SGOT) 65 U/L (15-37) Alanine Aminotransferase (ALT/SGPT) 47 U/L (14-59) Alkaline Phosphatase 94 U/L (46-116) Total Protein 5.3 g/dL (6.4-8.2) Albumin 2.3 g/dL (3.4-5.0) Albumin/Globulin Ratio 0.8 (1.0-1.7) Review All relevant outside records, renal labs, imaging studies, telemetry/EKG's were reviewed. Images Images CxR-- Interval repositioning of right IJ catheter, in appropriate position. Bilateral interstitial and airspace disease likely secondary to interstitial pulmonary edema. KENNETH BYRD MD Feb 12, 2019 12:27
[2019-02-12] MEDS ORDERED: VANCOMYCIN RANDOM LEVEL. MC ONE (12:30)
--- NOTE | 2019-02-12 16:25 | PDOC ---
PROGRESS NOTES Chief Complaint Chief Complaint Cardiorespiratory arrest - s/p CPR and 3 rounds epinephrine. hypoxic respiratory failure, pneuonia Severe sepsis - likely 2/2 HCAP with right sided pneumonia, HCAP, broad abx Pulmonary edema - likely from CPR, will monitor with serial chest x-ray. 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 Metabolic acidosis with respiratory acidosis Acute encephalopathy toxic from sepsis. DM2 with hyperglycemia - HTN - likely etiology of her kidney disease, will monitor closely. H/O stroke - left cerebellar encephalomalacia Falls - likely 2/2 blindness. Legally blind - Normocytic anemia Moderate malnutrition - Hypoalbuminemia. History of Present Illness History of Present Illness in ICU, on cooling protocol, family at bedside, discussed event and plan at length, full code status, but they are aware of poor prognosis at this point. pt was here 9 mos ago, and refused SNU, had been admitted to 3 times since, and has now been living in a [facility], and had beendoing much better with her activity level and blood sugars before this event Vitals Vitals Vital Signs Date Time Temp Pulse Resp B/P (MAP) Pulse Ox O2 Delivery O2 Flow Rate FiO2 02/12/19 16:16 20 Ventilator 02/12/19 15:57 100 02/12/19 15:00 91.7 02/12/19 15:00 39 Physical Exam General: No acute distress, Other Heart: Regular rate, No murmurs, Other Lungs: Other (diminished breath sounds, dependent rales) Abdomen: Normal bowel sounds, Soft, No tenderness, No hepatosplenomegaly, No masses Extremities: No clubbing, No cyanosis, No edema, Normal pulses, No tenderness/swelling Skin: No rashes, No breakdown, No significant lesion Labs LABS Laboratory Tests Test 02/11/19 16:26 02/11/19 17:40 02/11/19 17:51 02/11/19 19:00 Glucose (Fingerstick) 254 mg/dL (70-99) 263 mg/dL (70-99) Lactic Acid Level 2.7 mmol/L (0.4-2.0) Troponin I Quantitative 0.765 ng/mL (0.000-0.055) Procalcitonin 1.22 ng/mL (0.00-0.10) Nasal Screen MRSA (PCR) Negative (Negative) Test 02/11/19 19:49 02/11/19 21:27 02/11/19 22:35 02/11/19 23:51 O2 Saturation 94 % (92-99) Arterial Blood pH 7.19 (7.35-7.45) Arterial Blood pH (Temp corrected) 7.23 Arterial Blood pCO2 at Patient Temp 51 mmHg (35-46) Arterial Blood pCO2 (Temp correct) 43 mmHg Arterial Blood pO2 at Patient Temp 76 mmHg (65-108) Arterial Blood pO2 (Temp corrected) 59 mmHg Arterial Blood HCO3 19 mmol/L (21-28) Arterial Blood Base Excess -9 mmol/L (-3-3) FiO2 80 Glucose (Fingerstick) 146 mg/dL (70-99) 110 mg/dL (70-99) 94 mg/dL (70-99) Test 02/12/19 01:00 02/12/19 02:18 02/12/19 06:18 02/12/19 06:20 Glucose (Fingerstick) 79 mg/dL (70-99) 78 mg/dL (70-99) 105 mg/dL (70-99) Creatinine 2.3 mg/dL (0.6-1.0) Estimated GFR (Cockcroft-Gault) 20.6 Test 02/12/19 08:30 02/12/19 10:45 02/12/19 10:47 O2 Saturation 99 % (92-99) Arterial Blood pH 7.43 (7.35-7.45) Arterial Blood pH (Temp corrected) 7.49 Arterial Blood pCO2 at Patient Temp 24 mmHg (35-46) Arterial Blood pCO2 (Temp correct) 21 mmHg Arterial Blood pO2 at Patient Temp 143 mmHg (65-108) Arterial Blood pO2 (Temp corrected) 122 mmHg Arterial Blood HCO3 16 mmol/L (21-28) Arterial Blood Base Excess -7 mmol/L (-3-3) FiO2 60 White Blood Count 6.7 x10^3/uL (4.0-11.0) Red Blood Count 3.03 x10^6/uL (3.50-5.40) Hemoglobin 8.8 g/dL (12.0-15.5) Hematocrit 26.3 % (36.0-47.0) Mean Corpuscular Volume 87 fL (79-100) Mean Corpuscular Hemoglobin 29 pg (25-35) Mean Corpuscular Hemoglobin Concent 33 g/dL (31-37) Red Cell Distribution Width 14.6 % (11.5-14.5) Platelet Count 147 x10^3/uL (140-400) Neutrophils (%) (Auto) 81 % (31-73) Lymphocytes (%) (Auto) 12 % (24-48) Monocytes (%) (Auto) 6 % (0-9) Eosinophils (%) (Auto) 0 % (0-3) Basophils (%) (Auto) 0 % (0-3) Neutrophils # (Auto) 5.4 x10^3/uL (1.8-7.7) Lymphocytes # (Auto) 0.8 x10^3/uL (1.0-4.8) Monocytes # (Auto) 0.4 x10^3/uL (0.0-1.1) Eosinophils # (Auto) 0.0 x10^3/uL (0.0-0.7) Basophils # (Auto) 0.0 x10^3/uL (0.0-0.2) Prothrombin Time 15.3 SEC (11.7-14.0) Prothromb Time International Ratio 1.2 (0.8-1.1) Activated Partial Thromboplast Time 45 SEC (24-38) Fibrinogen 451 mg/dL (200-440) Sodium Level 146 mmol/L (136-145) Potassium Level 4.2 mmol/L (3.5-5.1) Chloride Level 115 mmol/L (98-107) Carbon Dioxide Level 20 mmol/L (21-32) Anion Gap 11 (6-14) Blood Urea Nitrogen 36 mg/dL (7-20) Creatinine 2.4 mg/dL (0.6-1.0) Estimated GFR (Cockcroft-Gault) 19.6 BUN/Creatinine Ratio 15 (6-20) Glucose Level 101 mg/dL (70-99) Calcium Level 7.9 mg/dL (8.5-10.1) Phosphorus Level 3.9 mg/dL (2.6-4.7) Magnesium Level 2.0 mg/dL (1.8-2.4) Total Bilirubin 0.5 mg/dL (0.2-1.0) Aspartate Amino Transf (AST/SGOT) 65 U/L (15-37) Alanine Aminotransferase (ALT/SGPT) 47 U/L (14-59) Alkaline Phosphatase 94 U/L (46-116) Total Protein 5.3 g/dL (6.4-8.2) Albumin 2.3 g/dL (3.4-5.0) Albumin/Globulin Ratio 0.8 (1.0-1.7) Glucose (Fingerstick) 98 mg/dL (70-99) Assessment and Plan Assessmemt and Plan Problems Medical Problems: (1) Anemia Status: Acute (2) Cardiorespiratory arrest Status: Acute (3) Elevated troponin I level Status: Acute (4) HCAP (healthcare-associated pneumonia) Status: Acute (5) Hypoalbuminemia Status: Acute (6) Metabolic acidosis with respiratory acidosis Status: Acute (7) Pulmonary edema Status: Acute (8) Renal insufficiency Status: Acute (9) Severe sepsis Status: Acute (10) Uncontrolled diabetes mellitus Status: Acute Comment Review of Relevant I have reviewed the following items malik (where applicable) has been applied. Labs Laboratory Tests Test 02/11/19 11:29 02/11/19 11:50 02/11/19 12:00 02/11/19 15:55 Glucose (Fingerstick) 282 mg/dL (70-99) White Blood Count 11.0 x10^3/uL (4.0-11.0) Red Blood Count 3.60 x10^6/uL (3.50-5.40) Hemoglobin 10.3 g/dL (12.0-15.5) Hematocrit 33.6 % (36.0-47.0) Mean Corpuscular Volume 94 fL (79-100) Mean Corpuscular Hemoglobin 29 pg (25-35) Mean Corpuscular Hemoglobin Concent 31 g/dL (31-37) Red Cell Distribution Width 15.4 % (11.5-14.5) Platelet Count 253 x10^3/uL (140-400) Neutrophils (%) (Auto) 54 % (31-73) Lymphocytes (%) (Auto) 40 % (24-48) Monocytes (%) (Auto) 3 % (0-9) Eosinophils (%) (Auto) 2 % (0-3) Basophils (%) (Auto) 1 % (0-3) Neutrophils # (Auto) 5.9 x10^3/uL (1.8-7.7) Lymphocytes # (Auto) 4.4 x10^3/uL (1.0-4.8) Monocytes # (Auto) 0.4 x10^3/uL (0.0-1.1) Eosinophils # (Auto) 0.2 x10^3/uL (0.0-0.7) Basophils # (Auto) 0.1 x10^3/uL (0.0-0.2) Prothrombin Time 15.1 SEC (11.7-14.0) Prothromb Time International Ratio 1.2 (0.8-1.1) D-Dimer (Pam) 3.82 ug/mlFEU (0.00-0.50) Sodium Level 141 mmol/L (136-145) Potassium Level 4.4 mmol/L (3.5-5.1) Chloride Level 108 mmol/L (98-107) Carbon Dioxide Level 17 mmol/L (21-32) Anion Gap 16 (6-14) Blood Urea Nitrogen 28 mg/dL (7-20) Creatinine 2.2 mg/dL (0.6-1.0) Estimated GFR (Cockcroft-Gault) 21.7 BUN/Creatinine Ratio 13 (6-20) Glucose Level 390 mg/dL (70-99) Lactic Acid Level 8.3 mmol/L (0.4-2.0) Calcium Level 8.7 mg/dL (8.5-10.1) Magnesium Level 2.3 mg/dL (1.8-2.4) Total Bilirubin 0.3 mg/dL (0.2-1.0) Aspartate Amino Transf (AST/SGOT) 46 U/L (15-37) Alanine Aminotransferase (ALT/SGPT) 33 U/L (14-59) Alkaline Phosphatase 136 U/L (46-116) Creatine Kinase 99 U/L (26-192) Troponin I Quantitative 0.107 ng/mL (0.000-0.055) XN-[id number]-Type Natriuretic Peptide 41452 pg/mL (0-449) Total Protein 6.3 g/dL (6.4-8.2) Albumin 2.8 g/dL (3.4-5.0) Albumin/Globulin Ratio 0.8 (1.0-1.7) Lipase 168 U/L (73-393) O2 Saturation 99 % (92-99) 93 % (92-99) Arterial Blood pH 7.01 (7.35-7.45) 7.23 (7.35-7.45) Arterial Blood pCO2 at Patient Temp 50 mmHg (35-46) 47 mmHg (35-46) Arterial Blood pO2 at Patient Temp 234 mmHg (65-108) 75 mmHg (65-108) Arterial Blood HCO3 13 mmol/L (21-28) 19 mmol/L (21-28) Arterial Blood Base Excess -18 mmol/L (-3-3) -8 mmol/L (-3-3) FiO2 100 80 Arterial Blood pH (Temp corrected) 7.26 Arterial Blood pCO2 (Temp correct) 43 mmHg Arterial Blood pO2 (Temp corrected) 64 mmHg Test 02/11/19 16:26 02/11/19 17:40 02/11/19 17:51 02/11/19 19:00 Glucose (Fingerstick) 254 mg/dL (70-99) 263 mg/dL (70-99) Lactic Acid Level 2.7 mmol/L (0.4-2.0) Troponin I Quantitative 0.765 ng/mL (0.000-0.055) Procalcitonin 1.22 ng/mL (0.00-0.10) Nasal Screen MRSA (PCR) Negative (Negative) Test 02/11/19 19:49 02/11/19 21:27 02/11/19 22:35 02/11/19 23:51 O2 Saturation 94 % (92-99) Arterial Blood pH 7.19 (7.35-7.45) Arterial Blood pH (Temp corrected) 7.23 Arterial Blood pCO2 at Patient Temp 51 mmHg (35-46) Arterial Blood pCO2 (Temp correct) 43 mmHg Arterial Blood pO2 at Patient Temp 76 mmHg (65-108) Arterial Blood pO2 (Temp corrected) 59 mmHg Arterial Blood HCO3 19 mmol/L (21-28) Arterial Blood Base Excess -9 mmol/L (-3-3) FiO2 80 Glucose (Fingerstick) 146 mg/dL (70-99) 110 mg/dL (70-99) 94 mg/dL (70-99) Test 02/12/19 01:00 02/12/19 02:18 02/12/19 06:18 02/12/19 06:20 Glucose (Fingerstick) 79 mg/dL (70-99) 78 mg/dL (70-99) 105 mg/dL (70-99) Creatinine 2.3 mg/dL (0.6-1.0) Estimated GFR (Cockcroft-Gault) 20.6 Test 02/12/19 08:30 02/12/19 10:45 02/12/19 10:47 O2 Saturation 99 % (92-99) Arterial Blood pH 7.43 (7.35-7.45) Arterial Blood pH (Temp corrected) 7.49 Arterial Blood pCO2 at Patient Temp 24 mmHg (35-46) Arterial Blood pCO2 (Temp correct) 21 mmHg Arterial Blood pO2 at Patient Temp 143 mmHg (65-108) Arterial Blood pO2 (Temp corrected) 122 mmHg Arterial Blood HCO3 16 mmol/L (21-28) Arterial Blood Base Excess -7 mmol/L (-3-3) FiO2 60 White Blood Count 6.7 x10^3/uL (4.0-11.0) Red Blood Count 3.03 x10^6/uL (3.50-5.40) Hemoglobin 8.8 g/dL (12.0-15.5) Hematocrit 26.3 % (36.0-47.0) Mean Corpuscular Volume 87 fL (79-100) Mean Corpuscular Hemoglobin 29 pg (25-35) Mean Corpuscular Hemoglobin Concent 33 g/dL (31-37) Red Cell Distribution Width 14.6 % (11.5-14.5) Platelet Count 147 x10^3/uL (140-400) Neutrophils (%) (Auto) 81 % (31-73) Lymphocytes (%) (Auto) 12 % (24-48) Monocytes (%) (Auto) 6 % (0-9) Eosinophils (%) (Auto) 0 % (0-3) Basophils (%) (Auto) 0 % (0-3) Neutrophils # (Auto) 5.4 x10^3/uL (1.8-7.7) Lymphocytes # (Auto) 0.8 x10^3/uL (1.0-4.8) Monocytes # (Auto) 0.4 x10^3/uL (0.0-1.1) Eosinophils # (Auto) 0.0 x10^3/uL (0.0-0.7) Basophils # (Auto) 0.0 x10^3/uL (0.0-0.2) Prothrombin Time 15.3 SEC (11.7-14.0) Prothromb Time International Ratio 1.2 (0.8-1.1) Activated Partial Thromboplast Time 45 SEC (24-38) Fibrinogen 451 mg/dL (200-440) Sodium Level 146 mmol/L (136-145) Potassium Level 4.2 mmol/L (3.5-5.1) Chloride Level 115 mmol/L (98-107) Carbon Dioxide Level 20 mmol/L (21-32) Anion Gap 11 (6-14) Blood Urea Nitrogen 36 mg/dL (7-20) Creatinine 2.4 mg/dL (0.6-1.0) Estimated GFR (Cockcroft-Gault) 19.6 BUN/Creatinine Ratio 15 (6-20) Glucose Level 101 mg/dL (70-99) Calcium Level 7.9 mg/dL (8.5-10.1) Phosphorus Level 3.9 mg/dL (2.6-4.7) Magnesium Level 2.0 mg/dL (1.8-2.4) Total Bilirubin 0.5 mg/dL (0.2-1.0) Aspartate Amino Transf (AST/SGOT) 65 U/L (15-37) Alanine Aminotransferase (ALT/SGPT) 47 U/L (14-59) Alkaline Phosphatase 94 U/L (46-116) Total Protein 5.3 g/dL (6.4-8.2) Albumin 2.3 g/dL (3.4-5.0) Albumin/Globulin Ratio 0.8 (1.0-1.7) Glucose (Fingerstick) 98 mg/dL (70-99) Laboratory Tests Test 02/11/19 16:26 02/11/19 17:40 02/11/19 17:51 02/11/19 19:00 Glucose (Fingerstick) 254 mg/dL (70-99) 263 mg/dL (70-99) Lactic Acid Level 2.7 mmol/L (0.4-2.0) Troponin I Quantitative 0.765 ng/mL (0.000-0.055) Procalcitonin 1.22 ng/mL (0.00-0.10) Nasal Screen MRSA (PCR) Negative (Negative) Test 02/11/19 19:49 02/11/19 21:27 02/11/19 22:35 02/11/19 23:51 O2 Saturation 94 % (92-99) Arterial Blood pH 7.19 (7.35-7.45) Arterial Blood pH (Temp corrected) 7.23 Arterial Blood pCO2 at Patient Temp 51 mmHg (35-46) Arterial Blood pCO2 (Temp correct) 43 mmHg Arterial Blood pO2 at Patient Temp 76 mmHg (65-108) Arterial Blood pO2 (Temp corrected) 59 mmHg Arterial Blood HCO3 19 mmol/L (21-28) Arterial Blood Base Excess -9 mmol/L (-3-3) FiO2 80 Glucose (Fingerstick) 146 mg/dL (70-99) 110 mg/dL (70-99) 94 mg/dL (70-99) Test 02/12/19 01:00 02/12/19 02:18 02/12/19 06:18 02/12/19 06:20 Glucose (Fingerstick) 79 mg/dL (70-99) 78 mg/dL (70-99) 105 mg/dL (70-99) Creatinine 2.3 mg/dL (0.6-1.0) Estimated GFR (Cockcroft-Gault) 20.6 Test 02/12/19 08:30 02/12/19 10:45 02/12/19 10:47 O2 Saturation 99 % (92-99) Arterial Blood pH 7.43 (7.35-7.45) Arterial Blood pH (Temp corrected) 7.49 Arterial Blood pCO2 at Patient Temp 24 mmHg (35-46) Arterial Blood pCO2 (Temp correct) 21 mmHg Arterial Blood pO2 at Patient Temp 143 mmHg (65-108) Arterial Blood pO2 (Temp corrected) 122 mmHg Arterial Blood HCO3 16 mmol/L (21-28) Arterial Blood Base Excess -7 mmol/L (-3-3) FiO2 60 White Blood Count 6.7 x10^3/uL (4.0-11.0) Red Blood Count 3.03 x10^6/uL (3.50-5.40) Hemoglobin 8.8 g/dL (12.0-15.5) Hematocrit 26.3 % (36.0-47.0) Mean Corpuscular Volume 87 fL (79-100) Mean Corpuscular Hemoglobin 29 pg (25-35) Mean Corpuscular Hemoglobin Concent 33 g/dL (31-37) Red Cell Distribution Width 14.6 % (11.5-14.5) Platelet Count 147 x10^3/uL (140-400) Neutrophils (%) (Auto) 81 % (31-73) Lymphocytes (%) (Auto) 12 % (24-48) Monocytes (%) (Auto) 6 % (0-9) Eosinophils (%) (Auto) 0 % (0-3) Basophils (%) (Auto) 0 % (0-3) Neutrophils # (Auto) 5.4 x10^3/uL (1.8-7.7) Lymphocytes # (Auto) 0.8 x10^3/uL (1.0-4.8) Monocytes # (Auto) 0.4 x10^3/uL (0.0-1.1) Eosinophils # (Auto) 0.0 x10^3/uL (0.0-0.7) Basophils # (Auto) 0.0 x10^3/uL (0.0-0.2) Prothrombin Time 15.3 SEC (11.7-14.0) Prothromb Time International Ratio 1.2 (0.8-1.1) Activated Partial Thromboplast Time 45 SEC (24-38) Fibrinogen 451 mg/dL (200-440) Sodium Level 146 mmol/L (136-145) Potassium Level 4.2 mmol/L (3.5-5.1) Chloride Level 115 mmol/L (98-107) Carbon Dioxide Level 20 mmol/L (21-32) Anion Gap 11 (6-14) Blood Urea Nitrogen 36 mg/dL (7-20) Creatinine 2.4 mg/dL (0.6-1.0) Estimated GFR (Cockcroft-Gault) 19.6 BUN/Creatinine Ratio 15 (6-20) Glucose Level 101 mg/dL (70-99) Calcium Level 7.9 mg/dL (8.5-10.1) Phosphorus Level 3.9 mg/dL (2.6-4.7) Magnesium Level 2.0 mg/dL (1.8-2.4) Total Bilirubin 0.5 mg/dL (0.2-1.0) Aspartate Amino Transf (AST/SGOT) 65 U/L (15-37) Alanine Aminotransferase (ALT/SGPT) 47 U/L (14-59) Alkaline Phosphatase 94 U/L (46-116) Total Protein 5.3 g/dL (6.4-8.2) Albumin 2.3 g/dL (3.4-5.0) Albumin/Globulin Ratio 0.8 (1.0-1.7) Glucose (Fingerstick) 98 mg/dL (70-99) Microbiology 02/11/19 Blood Culture - Preliminary, Resulted NO GROWTH AFTER 1 DAY Medications Current Medications Midazolam HCl 100 ml @ 0 mls/hr 1X ONCE IV Last administered on 02/11/19at 12:24; Start 02/11/19 at 12:00; Stop 02/11/19 at 12:01; Status DC Sodium Bicarbonate (Sodium Bicarb Adult 8.4% Syr) 100 meq 1X ONCE IV Last administered on 02/11/19at 12:24; Start 02/11/19 at 12:15; Stop 02/11/19 at 12:22; Status DC Piperacillin Sod/ Tazobactam Sod 3.375 gm/Sodium Chloride 50 ml @ 100 mls/hr 1X ONCE IV Last administered on 02/11/19at 13:50; Start 02/11/19 at 12:30; Stop 02/11/19 at 12:59; Status DC Vancomycin HCl 1.5 gm/Sodium Chloride 500 ml @ 250 mls/hr 1X ONCE IV Last administered on 02/11/19at 15:58; Start 02/11/19 at 12:30; Stop 02/11/19 at 14:29; Status DC Sodium Chloride 1,000 ml @ 1,000 mls/hr 1X ONCE IV Last administered on 02/11/19at 12:29; Start 02/11/19 at 12:15; Stop 02/11/19 at 13:14; Status DC Sodium Chloride 1,000 ml @ 1,000 mls/hr 1X ONCE IV Last administered on 02/11/19at 12:29; Start 02/11/19 at 12:15; Stop 02/11/19 at 13:14; Status DC Sodium Chloride 1,000 ml @ 150 mls/hr Q6H40M IV Last administered on 02/11/19at 13:50; Start 02/11/19 at 12:23; Stop 02/11/19 at 14:38; Status DC Sodium Chloride 1,000 ml @ 1,000 mls/hr 1X ONCE IV ; Start 02/11/19 at 12:45; Stop 02/11/19 at 13:44; Status DC Norepinephrine Bitartrate 250 ml @ 14.288 mls/ hr CONT PRN IV SEE I/O RECORD Last administered on 02/11/19at 16:15; Start 02/11/19 at 13:45 Vasopressin 40 unit/Dextrose 102 ml @ 6 mls/hr CONT PRN IV SEE I/O RECORD; Start 02/11/19 at 13:45 Albumin Human 100 ml @ 100 mls/hr PRN Q8HRS PRN IV HYPOTENSION; Start 02/11/19 at 14:45 Piperacillin Sod/ Tazobactam Sod (Zosyn Per Pharmacy) 1 each PRN DAILY PRN MC SEE COMMENTS; Start 02/11/19 at 15:15; Status UNV Piperacillin Sod/ Tazobactam Sod 3.375 gm/Sodium Chloride 50 ml @ 100 mls/hr Q6HRS IV Last administered on 02/12/19at 12:17; Start 02/11/19 at 18:00 Fentanyl Citrate (Fentanyl 2ml Vial) 100 mcg 1X ONCE IV Last administered on 02/11/19at 15:30; Start 02/11/19 at 15:15; Stop 02/11/19 at 15:16; Status DC Magnesium Sulfate/ Dextrose 100 ml @ 100 mls/hr 1X ONCE IV Last administered on 02/11/19at 16:10; Start 02/11/19 at 15:15; Stop 02/11/19 at 16:14; Status DC Buspirone HCl (Buspar) 30 mg Q8H NG Last administered on 02/12/19at 15:18; Start 02/11/19 at 15:15; Stop 02/13/19 at 07:16 Acetaminophen (Tylenol) 650 mg Q4H NG Last administered on 02/12/19at 15:18; Start 02/11/19 at 15:15 Artificial Tears (Artificial Tears) 1 drop Q6HRS OU Last administered on 02/12/19at 12:17; Start 02/11/19 at 18:00 Artificial Tears (Artificial Tears) 1 drop PRN Q15MIN PRN OU DRY EYE; Start 02/11/19 at 15:15 Heparin Sodium (Porcine) (Heparin Sodium) 5,000 unit BID SQ Last administered on 02/12/19at 09:36; Start 02/11/19 at 15:15 Pantoprazole Sodium (PROTONIX VIAL for IV PUSH) 40 mg DAILYAC IVP Last administered on 02/12/19at 09:36; Start 02/11/19 at 15:20 Fentanyl Citrate 30 ml @ 0 mls/hr CONT PRN IV PER PROTOCOL. Last administered on 02/12/19at 16:16; Start 02/11/19 at 15:15 Propofol 100 ml @ 0 mls/hr CONT PRN IV PER PROTOCOL.; Start 02/11/19 at 15:15 Midazolam HCl 100 ml @ 0 mls/hr CONT PRN IV PER PROTOCOL. Last administered on 02/11/19at 23:46; Start 02/11/19 at 15:15 Vecuronium [place] (Norcuron Bolus) 8 mg PRN Q1HR PRN IV SHIVERING Last administered on 02/12/19at 10:49; Start 02/11/19 at 15:15 Magnesium Sulfate/ Dextrose 100 ml @ 100 mls/hr PRN DAILY PRN IV MAG level 2.4-3.0mg/dl; Start 02/11/19 at 15:15 Magnesium Sulfate 100 ml @ 100 mls/hr PRN DAILY PRN IV MAG level less than 2.4mg/dl; Start 02/11/19 at 15:15 Potassium Chloride/Water 50 ml @ 50 mls/hr PRN DAILY PRN IV K+ level less than 3.1 mEq/l; Start 02/11/19 at 15:15 Potassium Chloride/Water 100 ml @ 100 mls/hr PRN DAILY PRN IV K+ level 3.1- 3.4mEq/L; Start 02/11/19 at 15:15 Sodium Phosphate 20 mmol/Dextrose 256.6667 ml @ 65 mls/hr PRN DAILY PRN IV Phosphrous less than 1mg/dL; Start 02/11/19 at 15:15 Sodium Phosphate 10 mmol/Dextrose 103.3333 ml @ 50 mls/hr PRN DAILY PRN IV Phosphorus is 1 - 2.5mg/dL; Start 02/11/19 at 15:15 Insulin Glargine (Lantus Syringe) 10 unit QHS SQ ; Start 02/11/19 at 21:00; Stop 02/11/19 at 18:32; Status DC Insulin Human Lispro (HumaLOG) 0-7 UNITS Q6HRS SQ ; Start 02/11/19 at 18:00; Stop 02/11/19 at 18:32; Status DC Dextrose (Dextrose 50%-Water Syringe) 12.5 gm PRN Q15MIN PRN IV SEE COMMENTS; Start 02/11/19 at 16:15 Dextrose 250 ml PRN Q15MIN PRN IV SEE COMMENTS; Start 02/11/19 at 16:15 Vancomycin HCl 1 gm/Sodium Chloride 250 ml @ 250 mls/hr Q12H IV ; Start 02/12/19 at 04:15; Status UNV Vancomycin HCl (Vanco Per Pharmacy) 1 each PRN DAILY PRN MC SEE COMMENTS Last administered on 02/11/19at 17:02; Start 02/11/19 at 16:15; Stop 02/12/19 at 09:49; Status DC Vancomycin HCl (Vancomycin Random Level) 1 each 1X ONCE MC Last administered on 02/12/19at 13:42; Start 02/12/19 at 12:30; Stop 02/12/19 at 12:31; Status DC Insulin Human Regular 150 unit/ Sodium Chloride 151.5 ml @ 0 mls/hr CONT PRN IV SEE I/O RECORD Last administered on 02/11/19at 18:19; Start 02/11/19 at 18:00 Furosemide (Lasix) 40 mg 1X ONCE IVP Last administered on 02/12/19at 09:36; Start 02/12/19 at 08:30; Stop 02/12/19 at 08:31; Status DC Active Scripts Active Feosol (Ferrous Sulfate) 325 Mg Tablet 325 Mg PO [id number] 30 Days Benzonatate 100 Mg Capsule 100 Mg PO [id number] Days Amlodipine Besylate 10 Mg Tablet 10 Mg PO DAILY 30 Days Reported Tradjenta (Linagliptin) 5 Mg Tablet 5 Mg PO DAILY Vitamin D3 (Cholecalciferol (Vitamin D3)) 1,000 Unit Tablet 1 Tab PO DAILY Trazodone Hcl 150 Mg Tablet 150 Mg PO HS Aspirin Ec (Aspirin) 325 Mg Tablet.dr 1 Tab PO DAILY Metoprolol Tartrate 25 Mg Tablet 1 Tab PO BID NEW MEDICATION BEGINNING 11/21/2014 PM DOSE MONITOR BLOOD PRESSURE DAILY Losartan Potassium 100 Mg Tablet 1 Tab PO DAILY Simvastatin 40 Mg Tablet 40 Mg PO DAILY Hydrocodone-Apap 10-325 (Hydrocodone Bit/Acetaminophen) 1 Each Tablet 1 Tab PO Q8HRS PRN Vitals/I & O Vital Sign - Last 24 Hours 02/11/19 02/11/19 02/11/19 02/11/19 16:30 16:30 16:45 16:45 Temp 92.8 92.8 91.7 91.7 92.8 91.7 Pulse 60 58 Resp 20 20 B/P (MAP) 116/66 (83) 125/64 (84) Pulse Ox 94 95 O2 Delivery Ventilator Ventilator 02/11/19 02/11/19 02/11/19 02/11/19 17:00 17:00 17:12 17:15 Temp 91.4 91.4 91.0 91.4 91.0 Pulse 60 60 Resp 20 20 B/P (MAP) 119/60 (79) 127/60 (82) Pulse Ox 94 94 95 O2 Delivery Ventilator Ventilator Ventilator 02/11/19 02/11/19 02/11/19 02/11/19 17:15 17:16 17:17 17:30 Temp 91.0 90.7 B/P (MAP) O2 Delivery Ventilator Ventilator 02/11/19 02/11/19 02/11/19 02/11/19 17:30 17:45 17:45 18:00 Temp 90.7 90.9 90.9 91.0 90.7 90.9 91.0 Pulse 60 64 64 Resp 20 20 20 B/P (MAP) 114/61 (78) 117/54 (75) 114/54 (74) Pulse Ox 95 100 100 O2 Delivery Ventilator Ventilator Ventilator 02/11/19 02/11/19 02/11/19 02/11/19 18:00 18:15 18:15 18:30 Temp 91.0 91.2 91.2 90.5 91.2 Pulse 63 Resp 20 B/P (MAP) 124/75 (91) Pulse Ox 100 O2 Delivery Ventilator 02/11/19 02/11/19 02/11/19 02/11/19 18:30 18:45 18:45 19:00 Temp 90.5 90.5 90.5 91.6 90.5 90.5 Pulse 64 63 Resp 20 20 B/P (MAP) 131/61 (84) 124/59 (80) Pulse Ox 97 94 O2 Delivery Ventilator Ventilator 02/11/19 02/11/19 02/11/19 02/11/19 19:00 19:46 20:00 20:00 Temp 90.9 Pulse 57 57 Resp 20 20 B/P (MAP) 137/61 (86) 137/61 (86) Pulse Ox 95 96 95 O2 Delivery Ventilator Ventilator Ventilator 02/11/19 02/11/19 02/11/19 02/11/19 20:00 20:00 21:00 21:00 Temp 91.6 Pulse 55 Resp 20 B/P (MAP) 133/59 (83) Pulse Ox 98 O2 Delivery Mechanical Ventilator Ventilator 02/11/19 02/11/19 02/11/19 02/11/19 22:00 22:00 23:00 23:00 Temp 91.4 90.7 Pulse 41 44 Resp 20 20 B/P (MAP) 118/53 (74) 129/57 (81) Pulse Ox 100 100 O2 Delivery Ventilator Ventilator 02/11/19 02/12/19 02/12/19 02/12/19 23:46 00:00 00:00 00:00 Pulse 51 Resp 20 20 B/P (MAP) 102/48 (66) Pulse Ox 100 100 O2 Delivery Ventilator Mechanical Ventilator Ventilator 02/12/19 02/12/19 02/12/19 02/12/19 00:19 00:33 01:00 01:00 Temp 91.9 Pulse 52 Resp 20 20 B/P (MAP) 99/48 (65) Pulse Ox 100 100 100 O2 Delivery Ventilator Ventilator Ventilator 02/12/19 02/12/19 02/12/19 02/12/19 02:00 02:00 02:09 03:00 Temp 92.3 91.8 Pulse 55 Resp 20 B/P (MAP) 98/47 (64) Pulse Ox 100 100 O2 Delivery Ventilator Ventilator 02/12/19 02/12/19 02/12/19 02/12/19 03:00 04:00 04:00 04:00 Temp 91.2 Pulse 50 57 Resp 20 20 B/P (MAP) 105/49 (67) 124/62 (82) Pulse Ox 100 100 O2 Delivery Ventilator Ventilator Mechanical Ventilator 02/12/19 02/12/19 02/12/19 02/12/19 04:00 04:09 04:16 04:51 Resp 20 20 B/P (MAP) Pulse Ox 100 100 100 O2 Delivery Ventilator Ventilator Ventilator 02/12/19 02/12/19 02/12/19 02/12/19 05:00 05:00 06:00 06:00 Temp 90.5 90.3 Pulse 62 72 Resp 20 20 B/P (MAP) 106/59 (75) 110/64 (79) Pulse Ox 100 100 O2 Delivery Ventilator Ventilator 02/12/19 02/12/19 02/12/19 02/12/19 07:00 07:00 07:34 07:45 Temp 91.4 Pulse 66 Resp 20 B/P (MAP) 121/66 (84) Pulse Ox 100 100 O2 Delivery Ventilator Ventilator Ventilator 02/12/19 02/12/19 02/12/19 02/12/19 08:00 08:00 08:00 08:00 Temp 91.5 91.9 91.9 Pulse 70 Resp 18 B/P (MAP) 87/46 (60) 94/48 (63) Pulse Ox 100 O2 Delivery Mechanical Ventilator Ventilator 02/12/19 02/12/19 02/12/19 02/12/19 08:56 09:00 09:00 10:00 Temp 91.5 Pulse 53 51 Resp 18 18 B/P (MAP) 106/51 (69) 104/49 (67) Pulse Ox 100 100 100 O2 Delivery Ventilator Ventilator Ventilator 02/12/19 02/12/19 02/12/19 02/12/19 10:00 10:14 10:55 11:00 Temp 92.0 91.0 Resp 18 18 B/P (MAP) Pulse Ox 100 100 O2 Delivery Ventilator Ventilator 02/12/19 02/12/19 02/12/19 02/12/19 11:00 12:00 12:00 12:00 Temp 90.6 90.6 90.6 Pulse 48 38 Resp 18 18 B/P (MAP) 88/74 (79) 106/42 (63) 107/41 (63) Pulse Ox 100 100 O2 Delivery Ventilator Ventilator 02/12/19 02/12/19 02/12/19 02/12/19 12:00 13:00 13:00 13:58 Temp 90.8 Pulse 49 Resp 18 B/P (MAP) 161/63 (95) Pulse Ox 100 100 O2 Delivery Mechanical Ventilator Ventilator Ventilator 02/12/19 02/12/19 02/12/19 02/12/19 14:00 14:00 15:00 15:00 Temp 91.7 91.7 Pulse 41 39 Resp 18 18 B/P (MAP) 160/46 (84) 158/46 (83) Pulse Ox 100 100 O2 Delivery Ventilator Ventilator 02/12/19 02/12/19 15:57 16:16 Resp 20 Pulse Ox 100 O2 Delivery Ventilator Ventilator Intake and Output 02/11/19 02/11/19 02/12/19 15:00 23:00 07:00 Intake Total 2086.32 ml 741.34 ml 302.3 ml Output Total 0 ml 105 ml 45 ml Balance 2086.32 ml 636.34 ml 257.3 ml REGINALD PAYAN MD Feb 12, 2019 16:25
[2019-02-12 16:52] LABS: BASO % 0 % (0-3); EOS # 0.1 x10^3/uL (0.0-0.7); EOS % 1 % (0-3); HEMATOCRIT 28.1 % (36.0-47.0); HEMOGLOBIN 9.4 g/dL (12.0-15.5); LYMPH % 12 % (24-48); MEAN CORPUSCULAR HEMOGLOBIN 29 pg (25-35); MEAN CORPUSCULAR HGB CONC 34 g/dL (31-37); MEAN CORPUSCULAR VOLUME 86 fL (79-100); MONO # 0.5 x10^3/uL (0.0-1.1); MONO % 5 % (0-9); NEUT # 7.3 x10^3/uL (1.8-7.7); NEUT % 82 % (31-73); PLATELET COUNT 168 x10^3/uL (140-400); RED BLOOD COUNT 3.27 x10^6/uL (3.50-5.40); RED CELL DISTRIBUTION WIDTH 14.5 % (11.5-14.5); WHITE BLOOD COUNT 8.9 x10^3/uL (4.0-11.0)
[2019-02-12 17:27] LABS: ALBUMIN 2.4 g/dL (3.4-5.0); ALBUMIN/GLOBULIN RATIO 0.8 (1.0-1.7); CALCIUM 8.1 mg/dL (8.5-10.1); CREATININE 2.5 mg/dL (0.6-1.0); GFR 18.7; MAGNESIUM 1.8 mg/dL (1.8-2.4); PHOSPHORUS 3.7 mg/dL (2.6-4.7); TOTAL BILIRUBIN 0.6 mg/dL (0.2-1.0); TOTAL PROTEIN 5.6 g/dL (6.4-8.2)
--- NOTE | 2019-02-12 17:38 | PDOC ---
CARDIOLOGY PROGRESS NOTE SUBJECTIVE: Currently still on cooling protocol non-responsive daughter at bedside. OBJECTIVE: Vital Signs/I&O: Vital Signs Date Time Temp Pulse Resp B/P (MAP) Pulse Ox O2 Delivery O2 Flow Rate FiO2 02/12/19 17:16 100 Ventilator 02/12/19 17:00 45 18 129/40 (69) 02/12/19 17:00 91.4 I & O 02/11/19 02/11/19 02/12/19 15:00 23:00 07:00 Intake Total 2086.32 ml 741.34 ml 302.3 ml Output Total 0 ml 105 ml 45 ml Balance 2086.32 ml 636.34 ml 257.3 ml Objective: sedated. non-responsive normal heart tones. CURRENT MEDICATIONS: Current Medications Medications (Trade) Dose Ordered Sig/Fredrick Route PRN Reason Start Time Stop Time Status Last Admin Dose Admin Piperacillin Sod/ Tazobactam Sod 3.375 gm/Sodium Chloride 50 ml @ 100 mls/hr Q6HRS IV 02/11/19 18:00 02/12/19 12:17 Artificial Tears (Artificial Tears) 1 drop Q6HRS OU 02/11/19 18:00 02/12/19 12:17 Vancomycin HCl (Vancomycin Random Level) 1 each 1X ONCE MC 02/12/19 12:30 02/12/19 12:31 DC 02/12/19 13:42 Insulin Human Regular 150 unit/ Sodium Chloride 151.5 ml @ 0 mls/hr CONT PRN IV SEE I/O RECORD 02/11/19 18:00 02/11/19 18:19 Furosemide (Lasix) 40 mg 1X ONCE IVP 02/12/19 08:30 02/12/19 08:31 DC 02/12/19 09:36 DIAGNOSTIC TESTING: labs reviewed. vent setting reviewed ASSESSMENT: 1. Acute hypoxic resp failure and resultant PEA arrest PLAN: 1. Continue present medical therapy 2. Await neurologic recovery 3. Routine echo pending. Thanks. Will follow along peripherally EVERARDO GOMEZ MD Feb 12, 2019 17:38
[2019-02-12] MEDS: MIDAZOLAM 100mg/100ml NS BAG 100 ML IV PRN (22:20)
[2019-02-13] VITALS (24 sets, daily range): BP systolic 95–163; BP diastolic 34–68
[2019-02-13] MEDS: ACETAMINOPHEN 650 MG/20.3 ML SOLUTION. NG SCH ×7 (00:07→20:16)
[2019-02-13] MEDS: busPIRone 10 MG TABLET. NG SCH ×2 (00:08→07:23)
[2019-02-13] MEDS: PIPERACILLIN/TAZOBACTAM 3.375 GM in IV NORMAL SALINE 50ML 50 ML IV SCH ×4 (00:08→18:16)
[2019-02-13] MEDS: POLYVINYL ALCOHOL 1.4% OPHTH SOLUTION 15ML BOTTLE. OU SCH ×6 (00:11→22:54)
[2019-02-13 06:19] LABS: CALCIUM 8.3 mg/dL (8.5-10.1); CREATININE 2.9 mg/dL (0.6-1.0); GFR 15.8; POTASSIUM 4.3 mmol/L (3.5-5.1)
[2019-02-13 06:35] LABS: BASO % 0 % (0-3); EOS # 0.1 x10^3/uL (0.0-0.7); EOS % 1 % (0-3); HEMATOCRIT 26.4 % (36.0-47.0); HEMOGLOBIN 8.8 g/dL (12.0-15.5); LYMPH # 0.6 x10^3/uL (1.0-4.8); LYMPH % 8 % (24-48); MEAN CORPUSCULAR HEMOGLOBIN 29 pg (25-35); MEAN CORPUSCULAR HGB CONC 33 g/dL (31-37); MEAN CORPUSCULAR VOLUME 87 fL (79-100); MONO # 0.6 x10^3/uL (0.0-1.1); MONO % 7 % (0-9); NEUT # 6.8 x10^3/uL (1.8-7.7); NEUT % 84 % (31-73); PLATELET COUNT 151 x10^3/uL (140-400); RED BLOOD COUNT 3.04 x10^6/uL (3.50-5.40); RED CELL DISTRIBUTION WIDTH 14.7 % (11.5-14.5); WHITE BLOOD COUNT 8.1 x10^3/uL (4.0-11.0)
[2019-02-13] MEDS: PANTOPRAZOLE IV PUSH 40 MG VIAL. IVP SCH (07:23)
--- NOTE | 2019-02-13 07:30 | EKG ---
[facility] [address] [place] [address] Test Date: 2019-02-11 Test Time: 11:41:10 Pat Name: BEN MILLER Department: Room: 108 1 Gender: F Seo Intern: : 1940 Requested By: EVERARDO GOMEZ Order Number: [id number] Reading MD: Measurements Intervals [place] Rate: 130 P: 120 MI: 110 QRS: -37 QRSD: 100 T: 114 QT: 282 QTc: 420 Interpretive Statements SINUS TACHYCARDIA ABNORMAL LEFT AXIS DEVIATION LEFT ANTERIOR FASCICULAR BLOCK INCOMPLETE RIGHT BUNDLE BRANCH BLOCK CONSIDER LEFT VENTRICULAR HYPERTROPHY ST & T ABNORMALITY, CONSIDER ANTEROLATERAL ISCHEMIA OR LEFT VENTRICULAR STRAIN ABNORMAL ECG No previous ECG available for comparison
--- NOTE | 2019-02-13 07:45 | PDOC ---
Infectious Disease Note Subjective Subjective pt is on vent, rewarming ROS ROS no n/v/d/ Vital Sign Vital Signs Vital Signs Date Time Temp Pulse Resp B/P (MAP) Pulse Ox O2 Delivery O2 Flow Rate FiO2 02/13/19 07:00 97.8 61 18 112/39 100 02/13/19 06:19 Ventilator Physical Exam PHYSICAL EXAM GENERAL: The patient is pale. Orally intubated and sedated. HEENT: Pupils equally round nonreactive. ETT and OGT in place. NECK: Supple. LUNGS: Coarse. HEART: S1 and S2 irregular. ABDOMEN: Soft. No guarding. Hypoactive bowel sounds. GENITOURINARY: Lovett in place. EXTREMITIES: No trace edema. No cyanosis. SKIN: Cool, pale cooling blanket in place. NEUROLOGIC: Unresponsive/sedated. RIJ without signs of any complications. Labs Lab Laboratory Tests Test 02/12/19 08:30 02/12/19 10:45 02/12/19 10:47 02/12/19 16:30 O2 Saturation 99 % (92-99) Arterial Blood pH 7.43 (7.35-7.45) Arterial Blood pH (Temp corrected) 7.49 Arterial Blood pCO2 at Patient Temp 24 mmHg (35-46) Arterial Blood pCO2 (Temp correct) 21 mmHg Arterial Blood pO2 at Patient Temp 143 mmHg (65-108) Arterial Blood pO2 (Temp corrected) 122 mmHg Arterial Blood HCO3 16 mmol/L (21-28) Arterial Blood Base Excess -7 mmol/L (-3-3) FiO2 60 White Blood Count 6.7 x10^3/uL (4.0-11.0) 8.9 x10^3/uL (4.0-11.0) Red Blood Count 3.03 x10^6/uL (3.50-5.40) 3.27 x10^6/uL (3.50-5.40) Hemoglobin 8.8 g/dL (12.0-15.5) 9.4 g/dL (12.0-15.5) Hematocrit 26.3 % (36.0-47.0) 28.1 % (36.0-47.0) Mean Corpuscular Volume 87 fL (79-100) 86 fL (79-100) Mean Corpuscular Hemoglobin 29 pg (25-35) 29 pg (25-35) Mean Corpuscular Hemoglobin Concent 33 g/dL (31-37) 34 g/dL (31-37) Red Cell Distribution Width 14.6 % (11.5-14.5) 14.5 % (11.5-14.5) Platelet Count 147 x10^3/uL (140-400) 168 x10^3/uL (140-400) Neutrophils (%) (Auto) 81 % (31-73) 82 % (31-73) Lymphocytes (%) (Auto) 12 % (24-48) 12 % (24-48) Monocytes (%) (Auto) 6 % (0-9) 5 % (0-9) Eosinophils (%) (Auto) 0 % (0-3) 1 % (0-3) Basophils (%) (Auto) 0 % (0-3) 0 % (0-3) Neutrophils # (Auto) 5.4 x10^3/uL (1.8-7.7) 7.3 x10^3/uL (1.8-7.7) Lymphocytes # (Auto) 0.8 x10^3/uL (1.0-4.8) 1.0 x10^3/uL (1.0-4.8) Monocytes # (Auto) 0.4 x10^3/uL (0.0-1.1) 0.5 x10^3/uL (0.0-1.1) Eosinophils # (Auto) 0.0 x10^3/uL (0.0-0.7) 0.1 x10^3/uL (0.0-0.7) Basophils # (Auto) 0.0 x10^3/uL (0.0-0.2) 0.0 x10^3/uL (0.0-0.2) Prothrombin Time 15.3 SEC (11.7-14.0) Prothromb Time International Ratio 1.2 (0.8-1.1) Activated Partial Thromboplast Time 45 SEC (24-38) Fibrinogen 451 mg/dL (200-440) Sodium Level 146 mmol/L (136-145) 147 mmol/L (136-145) Potassium Level 4.2 mmol/L (3.5-5.1) 4.0 mmol/L (3.5-5.1) Chloride Level 115 mmol/L (98-107) 114 mmol/L (98-107) Carbon Dioxide Level 20 mmol/L (21-32) 18 mmol/L (21-32) Anion Gap 11 (6-14) 15 (6-14) Blood Urea Nitrogen 36 mg/dL (7-20) 38 mg/dL (7-20) Creatinine 2.4 mg/dL (0.6-1.0) 2.5 mg/dL (0.6-1.0) Estimated GFR (Cockcroft-Gault) 19.6 18.7 BUN/Creatinine Ratio 15 (6-20) 15 (6-20) Glucose Level 101 mg/dL (70-99) 133 mg/dL (70-99) Calcium Level 7.9 mg/dL (8.5-10.1) 8.1 mg/dL (8.5-10.1) Phosphorus Level 3.9 mg/dL (2.6-4.7) 3.7 mg/dL (2.6-4.7) Magnesium Level 2.0 mg/dL (1.8-2.4) 1.8 mg/dL (1.8-2.4) Total Bilirubin 0.5 mg/dL (0.2-1.0) 0.6 mg/dL (0.2-1.0) Aspartate Amino Transf (AST/SGOT) 65 U/L (15-37) 63 U/L (15-37) Alanine Aminotransferase (ALT/SGPT) 47 U/L (14-59) 46 U/L (14-59) Alkaline Phosphatase 94 U/L (46-116) 98 U/L (46-116) Total Protein 5.3 g/dL (6.4-8.2) 5.6 g/dL (6.4-8.2) Albumin 2.3 g/dL (3.4-5.0) 2.4 g/dL (3.4-5.0) Albumin/Globulin Ratio 0.8 (1.0-1.7) 0.8 (1.0-1.7) Glucose (Fingerstick) 98 mg/dL (70-99) Test 02/12/19 16:36 02/12/19 23:06 02/13/19 00:10 02/13/19 04:07 Glucose (Fingerstick) 122 mg/dL (70-99) 134 mg/dL (70-99) 125 mg/dL (70-99) 116 mg/dL (70-99) Test 02/13/19 05:57 02/13/19 06:00 Glucose (Fingerstick) 122 mg/dL (70-99) White Blood Count 8.1 x10^3/uL (4.0-11.0) Red Blood Count 3.04 x10^6/uL (3.50-5.40) Hemoglobin 8.8 g/dL (12.0-15.5) Hematocrit 26.4 % (36.0-47.0) Mean Corpuscular Volume 87 fL (79-100) Mean Corpuscular Hemoglobin 29 pg (25-35) Mean Corpuscular Hemoglobin Concent 33 g/dL (31-37) Red Cell Distribution Width 14.7 % (11.5-14.5) Platelet Count 151 x10^3/uL (140-400) Neutrophils (%) (Auto) 84 % (31-73) Lymphocytes (%) (Auto) 8 % (24-48) Monocytes (%) (Auto) 7 % (0-9) Eosinophils (%) (Auto) 1 % (0-3) Basophils (%) (Auto) 0 % (0-3) Neutrophils # (Auto) 6.8 x10^3/uL (1.8-7.7) Lymphocytes # (Auto) 0.6 x10^3/uL (1.0-4.8) Monocytes # (Auto) 0.6 x10^3/uL (0.0-1.1) Eosinophils # (Auto) 0.1 x10^3/uL (0.0-0.7) Basophils # (Auto) 0.0 x10^3/uL (0.0-0.2) Sodium Level 148 mmol/L (136-145) Potassium Level 4.3 mmol/L (3.5-5.1) Chloride Level 115 mmol/L (98-107) Carbon Dioxide Level 17 mmol/L (21-32) Anion Gap 16 (6-14) Blood Urea Nitrogen 39 mg/dL (7-20) Creatinine 2.9 mg/dL (0.6-1.0) Estimated GFR (Cockcroft-Gault) 15.8 Glucose Level 134 mg/dL (70-99) Calcium Level 8.3 mg/dL (8.5-10.1) Micro Microbiology 02/11/19 Blood Culture - Preliminary, Resulted NO GROWTH AFTER 1 DAY Objective Assessment 1. Sepsis with Gram-positive cocci bacteremia, present on admission. 2. Healthcare-acquired pneumonia. 3. Status post cardiopulmonary arrest. 4. Allergy to CEPHALOSPORINS, UNKNOWN REACTION. 5. Lactic acidosis. 6. Acute kidney injury on chronic kidney disease. 7. Diabetes mellitus. Plan Plan of Care Continue the Zosyn. Add sputum and Strep pneumoniae Ag testing Labs in am Monitor closely D/w nursing Critically ill MARCELLUS CARDENAS MD Feb 13, 2019 07:45
--- NOTE | 2019-02-13 08:10 | RAD ---
Single view of the chest. 02/13/2019 5:00 AM Indication: Ventilatory support Comparison: Chest radiograph, February 11, 2019 Findings: Stable support lines and tubes including endotracheal tube, enteric tube, and right internal jugular central line. No pneumothorax. There is improved interstitial and alveolar infiltrates in the interim. Probable small layering effusions noted. Heart size is mildly enlarged but similar. No acute osseous changes are noted in the interim. Impression: 1. Stable support lines and tubes 2. Improved interstitial and alveolar infiltrates 3. Probable small layering effusions Electronically signed by: Solomon Muhammad MD (02/13/2019 8:07 AM) [id number]
[2019-02-13 09:35] LABS: BASE EXCESS ABG -10 mmol/L (-3-3); HCO3 ABG 14 mmol/L (21-28); PCO2 ABG 23 mmHg (35-46); PO2 ABG 118 mmHg (65-108); SAT O2 ABG 98 % (92-99)
[2019-02-13 09:40] LABS: FIO2 ABG 40
--- NOTE | 2019-02-13 09:58 | PDOC ---
PROGRESS NOTES Assessment Problems Medical Problems: (1) Acute kidney injury superimposed on CKD Status: Acute (2) Anemia Status: Acute (3) Cardiorespiratory arrest Status: Acute (4) CKD (chronic kidney disease), stage III Status: Chronic (5) Elevated troponin I level Status: Acute (6) HCAP (healthcare-associated pneumonia) Status: Acute (7) Hypoalbuminemia Status: Acute (8) Metabolic acidosis with respiratory acidosis Status: Acute (9) Pulmonary edema Status: Acute (10) Renal insufficiency Status: Acute (11) Severe sepsis Status: Acute (12) Uncontrolled diabetes mellitus Status: Acute Anoxic encephalopathy, barely done with hypothermia protocol, still on heavy sedation, too soon to make a prognosis. Prior left cerebellar and right frontal infarcts. Plan Discussed with patient's family I asked nurse to stop all sedation so I can get a good exam tomorrow Subjective None Objective Vital Signs Date Time Temp Pulse Resp B/P (MAP) Pulse Ox O2 Delivery O2 Flow Rate FiO2 02/13/19 09:00 100 Ventilator 02/13/19 08:00 58 116/39 (64) 02/13/19 08:00 36.7 02/13/19 08:00 18 Intake and Output 02/13/19 06:59 Intake Total 523.1 ml Output Total 990 ml Balance -466.9 ml Intake Oral 0 ml IV Total 523.1 ml Output Urine Total 990 ml PHYSICAL EXAM Still sedated, intubated Pupil small, not reactive No spontaneous extraocular movements CN: no focal findings. Muscle tone: normal. Muscle strength: twitch of movement to pain in the feet DTR: 1+ Plantar reflex: silent Gait: not examined in bed. Sensory exam: not cooperative. Cerebellar: not cooperative Review of Relevant I have reviewed the following items malik (where applicable) has been applied. Labs Laboratory Tests Test 02/11/19 11:29 02/11/19 11:50 02/11/19 12:00 02/11/19 15:55 Glucose (Fingerstick) 282 mg/dL (70-99) White Blood Count 11.0 x10^3/uL (4.0-11.0) Red Blood Count 3.60 x10^6/uL (3.50-5.40) Hemoglobin 10.3 g/dL (12.0-15.5) Hematocrit 33.6 % (36.0-47.0) Mean Corpuscular Volume 94 fL (79-100) Mean Corpuscular Hemoglobin 29 pg (25-35) Mean Corpuscular Hemoglobin Concent 31 g/dL (31-37) Red Cell Distribution Width 15.4 % (11.5-14.5) Platelet Count 253 x10^3/uL (140-400) Neutrophils (%) (Auto) 54 % (31-73) Lymphocytes (%) (Auto) 40 % (24-48) Monocytes (%) (Auto) 3 % (0-9) Eosinophils (%) (Auto) 2 % (0-3) Basophils (%) (Auto) 1 % (0-3) Neutrophils # (Auto) 5.9 x10^3/uL (1.8-7.7) Lymphocytes # (Auto) 4.4 x10^3/uL (1.0-4.8) Monocytes # (Auto) 0.4 x10^3/uL (0.0-1.1) Eosinophils # (Auto) 0.2 x10^3/uL (0.0-0.7) Basophils # (Auto) 0.1 x10^3/uL (0.0-0.2) Prothrombin Time 15.1 SEC (11.7-14.0) Prothromb Time International Ratio 1.2 (0.8-1.1) D-Dimer (Pam) 3.82 ug/mlFEU (0.00-0.50) Sodium Level 141 mmol/L (136-145) Potassium Level 4.4 mmol/L (3.5-5.1) Chloride Level 108 mmol/L (98-107) Carbon Dioxide Level 17 mmol/L (21-32) Anion Gap 16 (6-14) Blood Urea Nitrogen 28 mg/dL (7-20) Creatinine 2.2 mg/dL (0.6-1.0) Estimated GFR (Cockcroft-Gault) 21.7 BUN/Creatinine Ratio 13 (6-20) Glucose Level 390 mg/dL (70-99) Lactic Acid Level 8.3 mmol/L (0.4-2.0) Calcium Level 8.7 mg/dL (8.5-10.1) Magnesium Level 2.3 mg/dL (1.8-2.4) Total Bilirubin 0.3 mg/dL (0.2-1.0) Aspartate Amino Transf (AST/SGOT) 46 U/L (15-37) Alanine Aminotransferase (ALT/SGPT) 33 U/L (14-59) Alkaline Phosphatase 136 U/L (46-116) Creatine Kinase 99 U/L (26-192) Troponin I Quantitative 0.107 ng/mL (0.000-0.055) TD-Hih-Z-Type Natriuretic Peptide 72147 pg/mL (0-449) Total Protein 6.3 g/dL (6.4-8.2) Albumin 2.8 g/dL (3.4-5.0) Albumin/Globulin Ratio 0.8 (1.0-1.7) Lipase 168 U/L (73-393) O2 Saturation 99 % (92-99) 93 % (92-99) Arterial Blood pH 7.01 (7.35-7.45) 7.23 (7.35-7.45) Arterial Blood pCO2 at Patient Temp 50 mmHg (35-46) 47 mmHg (35-46) Arterial Blood pO2 at Patient Temp 234 mmHg (65-108) 75 mmHg (65-108) Arterial Blood HCO3 13 mmol/L (21-28) 19 mmol/L (21-28) Arterial Blood Base Excess -18 mmol/L (-3-3) -8 mmol/L (-3-3) FiO2 100 80 Arterial Blood pH (Temp corrected) 7.26 Arterial Blood pCO2 (Temp correct) 43 mmHg Arterial Blood pO2 (Temp corrected) 64 mmHg Test 02/11/19 16:26 02/11/19 17:40 02/11/19 17:51 02/11/19 19:00 Glucose (Fingerstick) 254 mg/dL (70-99) 263 mg/dL (70-99) Lactic Acid Level 2.7 mmol/L (0.4-2.0) Troponin I Quantitative 0.765 ng/mL (0.000-0.055) Procalcitonin 1.22 ng/mL (0.00-0.10) Nasal Screen MRSA (PCR) Negative (Negative) Test 02/11/19 19:49 02/11/19 21:27 02/11/19 22:35 02/11/19 23:51 O2 Saturation 94 % (92-99) Arterial Blood pH 7.19 (7.35-7.45) Arterial Blood pH (Temp corrected) 7.23 Arterial Blood pCO2 at Patient Temp 51 mmHg (35-46) Arterial Blood pCO2 (Temp correct) 43 mmHg Arterial Blood pO2 at Patient Temp 76 mmHg (65-108) Arterial Blood pO2 (Temp corrected) 59 mmHg Arterial Blood HCO3 19 mmol/L (21-28) Arterial Blood Base Excess -9 mmol/L (-3-3) FiO2 80 Glucose (Fingerstick) 146 mg/dL (70-99) 110 mg/dL (70-99) 94 mg/dL (70-99) Test 02/12/19 01:00 02/12/19 02:18 02/12/19 06:18 02/12/19 06:20 Glucose (Fingerstick) 79 mg/dL (70-99) 78 mg/dL (70-99) 105 mg/dL (70-99) Creatinine 2.3 mg/dL (0.6-1.0) Estimated GFR (Cockcroft-Gault) 20.6 Test 02/12/19 08:30 02/12/19 10:45 02/12/19 10:47 02/12/19 16:30 O2 Saturation 99 % (92-99) Arterial Blood pH 7.43 (7.35-7.45) Arterial Blood pH (Temp corrected) 7.49 Arterial Blood pCO2 at Patient Temp 24 mmHg (35-46) Arterial Blood pCO2 (Temp correct) 21 mmHg Arterial Blood pO2 at Patient Temp 143 mmHg (65-108) Arterial Blood pO2 (Temp corrected) 122 mmHg Arterial Blood HCO3 16 mmol/L (21-28) Arterial Blood Base Excess -7 mmol/L (-3-3) FiO2 60 White Blood Count 6.7 x10^3/uL (4.0-11.0) 8.9 x10^3/uL (4.0-11.0) Red Blood Count 3.03 x10^6/uL (3.50-5.40) 3.27 x10^6/uL (3.50-5.40) Hemoglobin 8.8 g/dL (12.0-15.5) 9.4 g/dL (12.0-15.5) Hematocrit 26.3 % (36.0-47.0) 28.1 % (36.0-47.0) Mean Corpuscular Volume 87 fL (79-100) 86 fL (79-100) Mean Corpuscular Hemoglobin 29 pg (25-35) 29 pg (25-35) Mean Corpuscular Hemoglobin Concent 33 g/dL (31-37) 34 g/dL (31-37) Red Cell Distribution Width 14.6 % (11.5-14.5) 14.5 % (11.5-14.5) Platelet Count 147 x10^3/uL (140-400) 168 x10^3/uL (140-400) Neutrophils (%) (Auto) 81 % (31-73) 82 % (31-73) Lymphocytes (%) (Auto) 12 % (24-48) 12 % (24-48) Monocytes (%) (Auto) 6 % (0-9) 5 % (0-9) Eosinophils (%) (Auto) 0 % (0-3) 1 % (0-3) Basophils (%) (Auto) 0 % (0-3) 0 % (0-3) Neutrophils # (Auto) 5.4 x10^3/uL (1.8-7.7) 7.3 x10^3/uL (1.8-7.7) Lymphocytes # (Auto) 0.8 x10^3/uL (1.0-4.8) 1.0 x10^3/uL (1.0-4.8) Monocytes # (Auto) 0.4 x10^3/uL (0.0-1.1) 0.5 x10^3/uL (0.0-1.1) Eosinophils # (Auto) 0.0 x10^3/uL (0.0-0.7) 0.1 x10^3/uL (0.0-0.7) Basophils # (Auto) 0.0 x10^3/uL (0.0-0.2) 0.0 x10^3/uL (0.0-0.2) Prothrombin Time 15.3 SEC (11.7-14.0) Prothromb Time International Ratio 1.2 (0.8-1.1) Activated Partial Thromboplast Time 45 SEC (24-38) Fibrinogen 451 mg/dL (200-440) Sodium Level 146 mmol/L (136-145) 147 mmol/L (136-145) Potassium Level 4.2 mmol/L (3.5-5.1) 4.0 mmol/L (3.5-5.1) Chloride Level 115 mmol/L (98-107) 114 mmol/L (98-107) Carbon Dioxide Level 20 mmol/L (21-32) 18 mmol/L (21-32) Anion Gap 11 (6-14) 15 (6-14) Blood Urea Nitrogen 36 mg/dL (7-20) 38 mg/dL (7-20) Creatinine 2.4 mg/dL (0.6-1.0) 2.5 mg/dL (0.6-1.0) Estimated GFR (Cockcroft-Gault) 19.6 18.7 BUN/Creatinine Ratio 15 (6-20) 15 (6-20) Glucose Level 101 mg/dL (70-99) 133 mg/dL (70-99) Calcium Level 7.9 mg/dL (8.5-10.1) 8.1 mg/dL (8.5-10.1) Phosphorus Level 3.9 mg/dL (2.6-4.7) 3.7 mg/dL (2.6-4.7) Magnesium Level 2.0 mg/dL (1.8-2.4) 1.8 mg/dL (1.8-2.4) Total Bilirubin 0.5 mg/dL (0.2-1.0) 0.6 mg/dL (0.2-1.0) Aspartate Amino Transf (AST/SGOT) 65 U/L (15-37) 63 U/L (15-37) Alanine Aminotransferase (ALT/SGPT) 47 U/L (14-59) 46 U/L (14-59) Alkaline Phosphatase 94 U/L (46-116) 98 U/L (46-116) Total Protein 5.3 g/dL (6.4-8.2) 5.6 g/dL (6.4-8.2) Albumin 2.3 g/dL (3.4-5.0) 2.4 g/dL (3.4-5.0) Albumin/Globulin Ratio 0.8 (1.0-1.7) 0.8 (1.0-1.7) Glucose (Fingerstick) 98 mg/dL (70-99) Test 02/12/19 16:36 02/12/19 23:06 02/13/19 00:10 02/13/19 04:07 Glucose (Fingerstick) 122 mg/dL (70-99) 134 mg/dL (70-99) 125 mg/dL (70-99) 116 mg/dL (70-99) Test 02/13/19 05:57 02/13/19 06:00 02/13/19 08:33 02/13/19 09:00 Glucose (Fingerstick) 122 mg/dL (70-99) 122 mg/dL (70-99) White Blood Count 8.1 x10^3/uL (4.0-11.0) Red Blood Count 3.04 x10^6/uL (3.50-5.40) Hemoglobin 8.8 g/dL (12.0-15.5) Hematocrit 26.4 % (36.0-47.0) Mean Corpuscular Volume 87 fL (79-100) Mean Corpuscular Hemoglobin 29 pg (25-35) Mean Corpuscular Hemoglobin Concent 33 g/dL (31-37) Red Cell Distribution Width 14.7 % (11.5-14.5) Platelet Count 151 x10^3/uL (140-400) Neutrophils (%) (Auto) 84 % (31-73) Lymphocytes (%) (Auto) 8 % (24-48) Monocytes (%) (Auto) 7 % (0-9) Eosinophils (%) (Auto) 1 % (0-3) Basophils (%) (Auto) 0 % (0-3) Neutrophils # (Auto) 6.8 x10^3/uL (1.8-7.7) Lymphocytes # (Auto) 0.6 x10^3/uL (1.0-4.8) Monocytes # (Auto) 0.6 x10^3/uL (0.0-1.1) Eosinophils # (Auto) 0.1 x10^3/uL (0.0-0.7) Basophils # (Auto) 0.0 x10^3/uL (0.0-0.2) Sodium Level 148 mmol/L (136-145) Potassium Level 4.3 mmol/L (3.5-5.1) Chloride Level 115 mmol/L (98-107) Carbon Dioxide Level 17 mmol/L (21-32) Anion Gap 16 (6-14) Blood Urea Nitrogen 39 mg/dL (7-20) Creatinine 2.9 mg/dL (0.6-1.0) Estimated GFR (Cockcroft-Gault) 15.8 Glucose Level 134 mg/dL (70-99) Calcium Level 8.3 mg/dL (8.5-10.1) O2 Saturation 98 % (92-99) Arterial Blood pH 7.40 (7.35-7.45) Arterial Blood pCO2 at Patient Temp 23 mmHg (35-46) Arterial Blood pO2 at Patient Temp 118 mmHg (65-108) Arterial Blood HCO3 14 mmol/L (21-28) Arterial Blood Base Excess -10 mmol/L (-3-3) FiO2 40 Laboratory Tests Test 02/12/19 10:45 02/12/19 10:47 02/12/19 16:30 02/12/19 16:36 White Blood Count 6.7 x10^3/uL (4.0-11.0) 8.9 x10^3/uL (4.0-11.0) Red Blood Count 3.03 x10^6/uL (3.50-5.40) 3.27 x10^6/uL (3.50-5.40) Hemoglobin 8.8 g/dL (12.0-15.5) 9.4 g/dL (12.0-15.5) Hematocrit 26.3 % (36.0-47.0) 28.1 % (36.0-47.0) Mean Corpuscular Volume 87 fL (79-100) 86 fL (79-100) Mean Corpuscular Hemoglobin 29 pg (25-35) 29 pg (25-35) Mean Corpuscular Hemoglobin Concent 33 g/dL (31-37) 34 g/dL (31-37) Red Cell Distribution Width 14.6 % (11.5-14.5) 14.5 % (11.5-14.5) Platelet Count 147 x10^3/uL (140-400) 168 x10^3/uL (140-400) Neutrophils (%) (Auto) 81 % (31-73) 82 % (31-73) Lymphocytes (%) (Auto) 12 % (24-48) 12 % (24-48) Monocytes (%) (Auto) 6 % (0-9) 5 % (0-9) Eosinophils (%) (Auto) 0 % (0-3) 1 % (0-3) Basophils (%) (Auto) 0 % (0-3) 0 % (0-3) Neutrophils # (Auto) 5.4 x10^3/uL (1.8-7.7) 7.3 x10^3/uL (1.8-7.7) Lymphocytes # (Auto) 0.8 x10^3/uL (1.0-4.8) 1.0 x10^3/uL (1.0-4.8) Monocytes # (Auto) 0.4 x10^3/uL (0.0-1.1) 0.5 x10^3/uL (0.0-1.1) Eosinophils # (Auto) 0.0 x10^3/uL (0.0-0.7) 0.1 x10^3/uL (0.0-0.7) Basophils # (Auto) 0.0 x10^3/uL (0.0-0.2) 0.0 x10^3/uL (0.0-0.2) Prothrombin Time 15.3 SEC (11.7-14.0) Prothromb Time International Ratio 1.2 (0.8-1.1) Activated Partial Thromboplast Time 45 SEC (24-38) Fibrinogen 451 mg/dL (200-440) Sodium Level 146 mmol/L (136-145) 147 mmol/L (136-145) Potassium Level 4.2 mmol/L (3.5-5.1) 4.0 mmol/L (3.5-5.1) Chloride Level 115 mmol/L (98-107) 114 mmol/L (98-107) Carbon Dioxide Level 20 mmol/L (21-32) 18 mmol/L (21-32) Anion Gap 11 (6-14) 15 (6-14) Blood Urea Nitrogen 36 mg/dL (7-20) 38 mg/dL (7-20) Creatinine 2.4 mg/dL (0.6-1.0) 2.5 mg/dL (0.6-1.0) Estimated GFR (Cockcroft-Gault) 19.6 18.7 BUN/Creatinine Ratio 15 (6-20) 15 (6-20) Glucose Level 101 mg/dL (70-99) 133 mg/dL (70-99) Calcium Level 7.9 mg/dL (8.5-10.1) 8.1 mg/dL (8.5-10.1) Phosphorus Level 3.9 mg/dL (2.6-4.7) 3.7 mg/dL (2.6-4.7) Magnesium Level 2.0 mg/dL (1.8-2.4) 1.8 mg/dL (1.8-2.4) Total Bilirubin 0.5 mg/dL (0.2-1.0) 0.6 mg/dL (0.2-1.0) Aspartate Amino Transf (AST/SGOT) 65 U/L (15-37) 63 U/L (15-37) Alanine Aminotransferase (ALT/SGPT) 47 U/L (14-59) 46 U/L (14-59) Alkaline Phosphatase 94 U/L (46-116) 98 U/L (46-116) Total Protein 5.3 g/dL (6.4-8.2) 5.6 g/dL (6.4-8.2) Albumin 2.3 g/dL (3.4-5.0) 2.4 g/dL (3.4-5.0) Albumin/Globulin Ratio 0.8 (1.0-1.7) 0.8 (1.0-1.7) Glucose (Fingerstick) 98 mg/dL (70-99) 122 mg/dL (70-99) Test 02/12/19 23:06 02/13/19 00:10 02/13/19 04:07 02/13/19 05:57 Glucose (Fingerstick) 134 mg/dL (70-99) 125 mg/dL (70-99) 116 mg/dL (70-99) 122 mg/dL (70-99) Test 02/13/19 06:00 02/13/19 08:33 02/13/19 09:00 White Blood Count 8.1 x10^3/uL (4.0-11.0) Red Blood Count 3.04 x10^6/uL (3.50-5.40) Hemoglobin 8.8 g/dL (12.0-15.5) Hematocrit 26.4 % (36.0-47.0) Mean Corpuscular Volume 87 fL (79-100) Mean Corpuscular Hemoglobin 29 pg (25-35) Mean Corpuscular Hemoglobin Concent 33 g/dL (31-37) Red Cell Distribution Width 14.7 % (11.5-14.5) Platelet Count 151 x10^3/uL (140-400) Neutrophils (%) (Auto) 84 % (31-73) Lymphocytes (%) (Auto) 8 % (24-48) Monocytes (%) (Auto) 7 % (0-9) Eosinophils (%) (Auto) 1 % (0-3) Basophils (%) (Auto) 0 % (0-3) Neutrophils # (Auto) 6.8 x10^3/uL (1.8-7.7) Lymphocytes # (Auto) 0.6 x10^3/uL (1.0-4.8) Monocytes # (Auto) 0.6 x10^3/uL (0.0-1.1) Eosinophils # (Auto) 0.1 x10^3/uL (0.0-0.7) Basophils # (Auto) 0.0 x10^3/uL (0.0-0.2) Sodium Level 148 mmol/L (136-145) Potassium Level 4.3 mmol/L (3.5-5.1) Chloride Level 115 mmol/L (98-107) Carbon Dioxide Level 17 mmol/L (21-32) Anion Gap 16 (6-14) Blood Urea Nitrogen 39 mg/dL (7-20) Creatinine 2.9 mg/dL (0.6-1.0) Estimated GFR (Cockcroft-Gault) 15.8 Glucose Level 134 mg/dL (70-99) Calcium Level 8.3 mg/dL (8.5-10.1) Glucose (Fingerstick) 122 mg/dL (70-99) O2 Saturation 98 % (92-99) Arterial Blood pH 7.40 (7.35-7.45) Arterial Blood pCO2 at Patient Temp 23 mmHg (35-46) Arterial Blood pO2 at Patient Temp 118 mmHg (65-108) Arterial Blood HCO3 14 mmol/L (21-28) Arterial Blood Base Excess -10 mmol/L (-3-3) FiO2 40 Microbiology 02/11/19 Blood Culture - Preliminary, Resulted NO GROWTH AFTER 1 DAY Medications Current Medications Midazolam HCl 100 ml @ 0 mls/hr 1X ONCE IV Last administered on 02/11/19at 12:24; Start 02/11/19 at 12:00; Stop 02/11/19 at 12:01; Status DC Sodium Bicarbonate (Sodium Bicarb Adult 8.4% Syr) 100 meq 1X ONCE IV Last administered on 02/11/19at 12:24; Start 02/11/19 at 12:15; Stop 02/11/19 at 12:22; Status DC Piperacillin Sod/ Tazobactam Sod 3.375 gm/Sodium Chloride 50 ml @ 100 mls/hr 1X ONCE IV Last administered on 02/11/19at 13:50; Start 02/11/19 at 12:30; Stop 02/11/19 at 12:59; Status DC Vancomycin HCl 1.5 gm/Sodium Chloride 500 ml @ 250 mls/hr 1X ONCE IV Last administered on 02/11/19at 15:58; Start 02/11/19 at 12:30; Stop 02/11/19 at 14:29; Status DC Sodium Chloride 1,000 ml @ 1,000 mls/hr 1X ONCE IV Last administered on 02/11/19at 12:29; Start 02/11/19 at 12:15; Stop 02/11/19 at 13:14; Status DC Sodium Chloride 1,000 ml @ 1,000 mls/hr 1X ONCE IV Last administered on 02/11/19at 12:29; Start 02/11/19 at 12:15; Stop 02/11/19 at 13:14; Status DC Sodium Chloride 1,000 ml @ 150 mls/hr Q6H40M IV Last administered on 02/11/19at 13:50; Start 02/11/19 at 12:23; Stop 02/11/19 at 14:38; Status DC Sodium Chloride 1,000 ml @ 1,000 mls/hr 1X ONCE IV ; Start 02/11/19 at 12:45; Stop 02/11/19 at 13:44; Status DC Norepinephrine Bitartrate 250 ml @ 14.288 mls/ hr CONT PRN IV SEE I/O RECORD Last administered on 02/11/19at 16:15; Start 02/11/19 at 13:45 Vasopressin 40 unit/Dextrose 102 ml @ 6 mls/hr CONT PRN IV SEE I/O RECORD; Start 02/11/19 at 13:45 Albumin Human 100 ml @ 100 mls/hr PRN Q8HRS PRN IV HYPOTENSION; Start 02/11/19 at 14:45 Piperacillin Sod/ Tazobactam Sod (Zosyn Per Pharmacy) 1 each PRN DAILY PRN MC SEE COMMENTS; Start 02/11/19 at 15:15; Status UNV Piperacillin Sod/ Tazobactam Sod 3.375 gm/Sodium Chloride 50 ml @ 100 mls/hr Q6HRS IV Last administered on 02/13/19 05:48; Start 02/11/19 at 18:00 Fentanyl Citrate (Fentanyl 2ml Vial) 100 mcg 1X ONCE IV Last administered on 02/11/19at 15:30; Start 02/11/19 at 15:15; Stop 02/11/19 at 15:16; Status DC Magnesium Sulfate/ Dextrose 100 ml @ 100 mls/hr 1X ONCE IV Last administered on 02/11/19at 16:10; Start 02/11/19 at 15:15; Stop 02/11/19 at 16:14; Status DC Buspirone HCl (Buspar) 30 mg Q8H NG Last administered on 02/13/19 07:23; Start 02/11/19 at 15:15; Stop 02/13/19 at 07:16; Status DC Acetaminophen (Tylenol) 650 mg Q4H NG Last administered on 02/13/19 07:23; Start 02/11/19 at 15:15 Artificial Tears (Artificial Tears) 1 drop Q6HRS OU Last administered on 02/13/19 05:48; Start 02/11/19 at 18:00 Artificial Tears (Artificial Tears) 1 drop PRN Q15MIN PRN OU DRY EYE; Start 02/11/19 at 15:15 Heparin Sodium (Porcine) (Heparin Sodium) 5,000 unit BID SQ Last administered on 02/12/19at 21:10; Start 02/11/19 at 15:15 Pantoprazole Sodium (PROTONIX VIAL for IV PUSH) 40 mg DAILYAC IVP Last administered on 9/23/19at 07:23; Start 02/11/19 at 15:20 Fentanyl Citrate 30 ml @ 0 mls/hr CONT PRN IV PER PROTOCOL. Last administered on 02/13/19at 05:48; Start 02/11/19 at 15:15 Propofol 100 ml @ 0 mls/hr CONT PRN IV PER PROTOCOL.; Start 02/11/19 at 15:15 Midazolam HCl 100 ml @ 0 mls/hr CONT PRN IV PER PROTOCOL. Last administered on 02/12/19at 22:21; Start 02/11/19 at 15:15 Vecuronium Dutton (Norcuron Bolus) 8 mg PRN Q1HR PRN IV SHIVERING Last administered on 02/12/19at 10:49; Start 02/11/19 at 15:15 Magnesium Sulfate/ Dextrose 100 ml @ 100 mls/hr PRN DAILY PRN IV MAG level 2.4-3.0mg/dl; Start 02/11/19 at 15:15 Magnesium Sulfate 100 ml @ 100 mls/hr PRN DAILY PRN IV MAG level less than 2.4mg/dl; Start 02/11/19 at 15:15 Potassium Chloride/Water 50 ml @ 50 mls/hr PRN DAILY PRN IV K+ level less than 3.1 mEq/l; Start 02/11/19 at 15:15 Potassium Chloride/Water 100 ml @ 100 mls/hr PRN DAILY PRN IV K+ level 3.1- 3.4mEq/L; Start 02/11/19 at 15:15 Sodium Phosphate 20 mmol/Dextrose 256.6667 ml @ 65 mls/hr PRN DAILY PRN IV Phosphrous less than 1mg/dL; Start 02/11/19 at 15:15 Sodium Phosphate 10 mmol/Dextrose 103.3333 ml @ 50 mls/hr PRN DAILY PRN IV Phosphorus is 1 - 2.5mg/dL; Start 02/11/19 at 15:15 Insulin Glargine (Lantus Syringe) 10 unit QHS SQ ; Start 02/11/19 at 21:00; Stop 02/11/19 at 18:32; Status DC Insulin Human Lispro (HumaLOG) 0-7 UNITS Q6HRS SQ ; Start 02/11/19 at 18:00; Stop 02/11/19 at 18:32; Status DC Dextrose (Dextrose 50%-Water Syringe) 12.5 gm PRN Q15MIN PRN IV SEE COMMENTS; Start 02/11/19 at 16:15 Dextrose 250 ml PRN Q15MIN PRN IV SEE COMMENTS; Start 02/11/19 at 16:15 Vancomycin HCl 1 gm/Sodium Chloride 250 ml @ 250 mls/hr Q12H IV ; Start 02/12/19 at 04:15; Status UNV Vancomycin HCl (Vanco Per Pharmacy) 1 each PRN DAILY PRN MC SEE COMMENTS Last administered on 02/11/19at 17:02; Start 02/11/19 at 16:15; Stop 02/12/19 at 09:49; Status DC Vancomycin HCl (Vancomycin Random Level) 1 each 1X ONCE MC Last administered on 02/12/19at 13:42; Start 02/12/19 at 12:30; Stop 02/12/19 at 12:31; Status DC Insulin Human Regular 150 unit/ Sodium Chloride 151.5 ml @ 0 mls/hr CONT PRN IV SEE I/O RECORD Last administered on 02/11/19at 18:19; Start 02/11/19 at 18:00 Furosemide (Lasix) 40 mg 1X ONCE IVP Last administered on 02/12/19at 09:36; Start 02/12/19 at 08:30; Stop 02/12/19 at 08:31; Status DC Active Scripts Active Feosol (Ferrous Sulfate) 325 Mg Tablet 325 Mg PO [id number] 30 Days Benzonatate 100 Mg Capsule 100 Mg PO [id number] 7 Days Amlodipine Besylate 10 Mg Tablet 10 Mg PO DAILY 30 Days Reported Tradjenta (Linagliptin) 5 Mg Tablet 5 Mg PO DAILY Vitamin D3 (Cholecalciferol (Vitamin D3)) 1,000 Unit Tablet 1 Tab PO DAILY Trazodone Hcl 150 Mg Tablet 150 Mg PO HS Aspirin Ec (Aspirin) 325 Mg Tablet.dr 1 Tab PO DAILY Metoprolol Tartrate 25 Mg Tablet 1 Tab PO BID NEW MEDICATION BEGINNING 11/21/2014 PM DOSE MONITOR BLOOD PRESSURE DAILY Losartan Potassium 100 Mg Tablet 1 Tab PO DAILY Simvastatin 40 Mg Tablet 40 Mg PO DAILY Hydrocodone-Apap 10-325 (Hydrocodone Bit/Acetaminophen) 1 Each Tablet 1 Tab PO Q8HRS PRN Vitals/I & O Vital Sign - Last 24 Hours 02/12/19 02/12/19 02/12/1919 10:00 10:00 10:14 10:55 Temp 92.0 Pulse 51 Resp 18 18 18 B/P (MAP) 104/49 (67) Pulse Ox 100 100 100 O2 Delivery Ventilator Ventilator Ventilator 02/12/19 02/12/19 02/12/19 02/12/19 11:00 11:00 12:00 12:00 Temp 91.0 90.6 90.6 Pulse 48 38 Resp 18 18 B/P (MAP) 88/74 (79) 106/42 (63) 107/41 (63) Pulse Ox 100 100 O2 Delivery Ventilator Ventilator 02/12/19 02/12/19 02/12/19 02/12/19 12:00 12:00 13:00 13:00 Temp 90.6 90.8 Pulse 49 Resp 18 B/P (MAP) 161/63 (95) Pulse Ox 100 O2 Delivery Mechanical Ventilator Ventilator 02/12/19 02/12/19 02/12/19 02/12/19 13:58 14:00 14:00 15:00 Temp 91.7 Pulse 41 39 Resp 18 18 B/P (MAP) 160/46 (84) 158/46 (83) Pulse Ox 100 100 100 O2 Delivery Ventilator Ventilator Ventilator 02/12/19 02/12/19 02/12/19 02/12/19 15:00 15:57 16:00 16:00 Temp 91.7 91.2 B/P (MAP) Pulse Ox 100 O2 Delivery Ventilator Mechanical Ventilator 02/12/19 02/12/19 02/12/19 02/12/19 16:00 16:00 16:16 17:00 Temp 91.2 91.4 91.2 Pulse 41 Resp 18 20 B/P (MAP) 155/46 (82) 156/51 (86) Pulse Ox 100 O2 Delivery Ventilator Ventilator 02/12/19 02/12/19 02/12/19 02/12/19 17:00 17:16 17:30 17:30 Temp 91.4 Pulse 45 40 Resp 18 18 B/P (MAP) 129/40 (69) 145/43 (77) Pulse Ox 100 100 100 O2 Delivery Ventilator Ventilator Ventilator 02/12/19 02/12/19 02/12/19 02/12/19 18:00 18:07 18:30 19:00 Temp 91.6 92.0 Pulse 43 Resp 18 18 B/P (MAP) 128/39 (68) Pulse Ox 100 100 O2 Delivery Ventilator 02/12/19 02/12/19 02/12/19 02/12/19 19:00 20:00 20:00 20:00 Temp 92.1 92.4 B/P (MAP) O2 Delivery Mechanical Ventilator 02/12/19 02/12/19 02/12/19 02/12/19 20:00 20:13 21:00 21:00 Temp 93.0 Pulse 47 51 Resp 18 18 B/P (MAP) 121/38 (65) 91/33 (52) Pulse Ox 100 100 100 O2 Delivery Ventilator Ventilator Ventilator 02/12/19 02/12/19 02/12/19 02/12/19 22:00 22:00 22:21 22:56 Temp 93.6 Pulse 51 Resp 18 18 18 B/P (MAP) 135/47 (76) Pulse Ox 99 100 100 O2 Delivery Ventilator Ventilator Ventilator 02/12/19 02/12/19 02/13/19 02/13/19 23:00 23:00 00:00 00:00 Temp 94.2 94.5 Pulse 55 60 Resp 18 18 B/P (MAP) 125/43 (70) 123/43 (69) Pulse Ox 100 100 O2 Delivery Ventilator Ventilator 02/13/19 02/13/19 02/13/19 02/13/19 00:00 00:00 00:10 01:00 Temp 95.0 B/P (MAP) Pulse Ox 100 O2 Delivery Mechanical Ventilator Ventilator 02/13/19 02/13/19 02/13/19 02/13/19 01:00 02:00 02:00 02:08 Temp 95.3 Pulse 50 52 Resp 18 18 B/P (MAP) 119/39 (65) 142/46 (78) Pulse Ox 100 100 100 O2 Delivery Ventilator Ventilator Ventilator 02/13/19 02/13/19 02/13/19 02/13/19 03:00 03:00 04:00 04:00 Temp 95.8 96.4 Pulse 53 Resp 18 B/P (MAP) 117/41 (66) Pulse Ox 100 O2 Delivery Ventilator Mechanical Ventilator 02/13/19 02/13/19 02/13/19 02/13/19 04:00 04:00 04:58 05:00 Temp 96.8 Pulse 65 Resp 18 B/P (MAP) 102/41 (61) Pulse Ox 99 100 O2 Delivery Ventilator Ventilator 02/13/19 02/13/19 02/13/19 02/13/19 05:00 05:48 06:00 06:00 Temp 97.2 Pulse 57 64 Resp 18 18 18 B/P (MAP) 148/50 (82) 101/39 (59) Pulse Ox 100 100 100 O2 Delivery Ventilator Ventilator Ventilator 02/13/19 02/13/19 02/13/19 02/13/19 06:19 07:00 07:00 07:45 Temp 97.8 97.8 97.8 Pulse 61 61 Resp 18 18 18 B/P (MAP) 112/39 (63) 112/39 Pulse Ox 100 100 100 O2 Delivery Ventilator Ventilator Mechanical Ventilator 02/13/19 02/13/19 02/13/19 02/13/19 08:00 08:00 08:00 09:00 Temp 98.1 36.7 98.1 Pulse 58 58 58 Resp 18 B/P (MAP) 116/39 (64) 116/39 116/39 (64) Pulse Ox 100 100 100 O2 Delivery Ventilator Ventilator Intake and Output 02/12/19 02/12/19 02/13/19 14:59 22:59 06:59 Intake Total 150 ml 373.1 ml Output Total 415 ml 440 ml 135 ml Balance -415 ml -290 ml 238.1 ml MARCY PAUL MD Feb 13, 2019 09:58
--- NOTE | 2019-02-13 09:58 | PDOC ---
PULMONARY PROGRESS NOTES Subjective 78 y.o. female [facility] resident. she had been treated for pneumonia there, but was unresponsive and having progressive hypoxia and respiratory difficulty. Upon presentation to [facility] she had pulseless cardiac arrest. She was intubated. Presently she is sedated and undergoing hypothermia protocol. re-warmed today AC mode Vitals Vital Signs Date Time Temp Pulse Resp B/P (MAP) Pulse Ox O2 Delivery O2 Flow Rate FiO2 02/13/19 09:00 100 Ventilator 02/13/19 08:00 58 116/39 (64) 02/13/19 08:00 36.7 02/13/19 08:00 18 Lungs: Other (diminished breath sounds, dependent rales) Cardiovascular: S1, S2 Abdomen: Soft Extremities: No Edema Skin: Warm Labs Laboratory Tests Test 02/11/19 11:29 02/11/19 11:50 02/11/19 12:00 02/11/19 15:55 Glucose (Fingerstick) 282 mg/dL (70-99) White Blood Count 11.0 x10^3/uL (4.0-11.0) Red Blood Count 3.60 x10^6/uL (3.50-5.40) Hemoglobin 10.3 g/dL (12.0-15.5) Hematocrit 33.6 % (36.0-47.0) Mean Corpuscular Volume 94 fL (79-100) Mean Corpuscular Hemoglobin 29 pg (25-35) Mean Corpuscular Hemoglobin Concent 31 g/dL (31-37) Red Cell Distribution Width 15.4 % (11.5-14.5) Platelet Count 253 x10^3/uL (140-400) Neutrophils (%) (Auto) 54 % (31-73) Lymphocytes (%) (Auto) 40 % (24-48) Monocytes (%) (Auto) 3 % (0-9) Eosinophils (%) (Auto) 2 % (0-3) Basophils (%) (Auto) 1 % (0-3) Neutrophils # (Auto) 5.9 x10^3/uL (1.8-7.7) Lymphocytes # (Auto) 4.4 x10^3/uL (1.0-4.8) Monocytes # (Auto) 0.4 x10^3/uL (0.0-1.1) Eosinophils # (Auto) 0.2 x10^3/uL (0.0-0.7) Basophils # (Auto) 0.1 x10^3/uL (0.0-0.2) Prothrombin Time 15.1 SEC (11.7-14.0) Prothromb Time International Ratio 1.2 (0.8-1.1) D-Dimer (Pam) 3.82 ug/mlFEU (0.00-0.50) Sodium Level 141 mmol/L (136-145) Potassium Level 4.4 mmol/L (3.5-5.1) Chloride Level 108 mmol/L (98-107) Carbon Dioxide Level 17 mmol/L (21-32) Anion Gap 16 (6-14) Blood Urea Nitrogen 28 mg/dL (7-20) Creatinine 2.2 mg/dL (0.6-1.0) Estimated GFR (Cockcroft-Gault) 21.7 BUN/Creatinine Ratio 13 (6-20) Glucose Level 390 mg/dL (70-99) Lactic Acid Level 8.3 mmol/L (0.4-2.0) Calcium Level 8.7 mg/dL (8.5-10.1) Magnesium Level 2.3 mg/dL (1.8-2.4) Total Bilirubin 0.3 mg/dL (0.2-1.0) Aspartate Amino Transf (AST/SGOT) 46 U/L (15-37) Alanine Aminotransferase (ALT/SGPT) 33 U/L (14-59) Alkaline Phosphatase 136 U/L (46-116) Creatine Kinase 99 U/L (26-192) Troponin I Quantitative 0.107 ng/mL (0.000-0.055) CZ-Svr-R-Type Natriuretic Peptide 41644 pg/mL (0-449) Total Protein 6.3 g/dL (6.4-8.2) Albumin 2.8 g/dL (3.4-5.0) Albumin/Globulin Ratio 0.8 (1.0-1.7) Lipase 168 U/L (73-393) O2 Saturation 99 % (92-99) 93 % (92-99) Arterial Blood pH 7.01 (7.35-7.45) 7.23 (7.35-7.45) Arterial Blood pCO2 at Patient Temp 50 mmHg (35-46) 47 mmHg (35-46) Arterial Blood pO2 at Patient Temp 234 mmHg (65-108) 75 mmHg (65-108) Arterial Blood HCO3 13 mmol/L (21-28) 19 mmol/L (21-28) Arterial Blood Base Excess -18 mmol/L (-3-3) -8 mmol/L (-3-3) FiO2 100 80 Arterial Blood pH (Temp corrected) 7.26 Arterial Blood pCO2 (Temp correct) 43 mmHg Arterial Blood pO2 (Temp corrected) 64 mmHg Test 02/11/19 16:26 02/11/19 17:40 02/11/19 17:51 02/11/19 19:00 Glucose (Fingerstick) 254 mg/dL (70-99) 263 mg/dL (70-99) Lactic Acid Level 2.7 mmol/L (0.4-2.0) Troponin I Quantitative 0.765 ng/mL (0.000-0.055) Procalcitonin 1.22 ng/mL (0.00-0.10) Nasal Screen MRSA (PCR) Negative (Negative) Test 02/11/19 19:49 02/11/19 21:27 02/11/19 22:35 02/11/19 23:51 O2 Saturation 94 % (92-99) Arterial Blood pH 7.19 (7.35-7.45) Arterial Blood pH (Temp corrected) 7.23 Arterial Blood pCO2 at Patient Temp 51 mmHg (35-46) Arterial Blood pCO2 (Temp correct) 43 mmHg Arterial Blood pO2 at Patient Temp 76 mmHg (65-108) Arterial Blood pO2 (Temp corrected) 59 mmHg Arterial Blood HCO3 19 mmol/L (21-28) Arterial Blood Base Excess -9 mmol/L (-3-3) FiO2 80 Glucose (Fingerstick) 146 mg/dL (70-99) 110 mg/dL (70-99) 94 mg/dL (70-99) Test 02/12/19 01:00 02/12/19 02:18 02/12/19 06:18 02/12/19 06:20 Glucose (Fingerstick) 79 mg/dL (70-99) 78 mg/dL (70-99) 105 mg/dL (70-99) Creatinine 2.3 mg/dL (0.6-1.0) Estimated GFR (Cockcroft-Gault) 20.6 Test 02/12/19 08:30 02/12/19 10:45 02/12/19 10:47 02/12/19 16:30 O2 Saturation 99 % (92-99) Arterial Blood pH 7.43 (7.35-7.45) Arterial Blood pH (Temp corrected) 7.49 Arterial Blood pCO2 at Patient Temp 24 mmHg (35-46) Arterial Blood pCO2 (Temp correct) 21 mmHg Arterial Blood pO2 at Patient Temp 143 mmHg (65-108) Arterial Blood pO2 (Temp corrected) 122 mmHg Arterial Blood HCO3 16 mmol/L (21-28) Arterial Blood Base Excess -7 mmol/L (-3-3) FiO2 60 White Blood Count 6.7 x10^3/uL (4.0-11.0) 8.9 x10^3/uL (4.0-11.0) Red Blood Count 3.03 x10^6/uL (3.50-5.40) 3.27 x10^6/uL (3.50-5.40) Hemoglobin 8.8 g/dL (12.0-15.5) 9.4 g/dL (12.0-15.5) Hematocrit 26.3 % (36.0-47.0) 28.1 % (36.0-47.0) Mean Corpuscular Volume 87 fL (79-100) 86 fL (79-100) Mean Corpuscular Hemoglobin 29 pg (25-35) 29 pg (25-35) Mean Corpuscular Hemoglobin Concent 33 g/dL (31-37) 34 g/dL (31-37) Red Cell Distribution Width 14.6 % (11.5-14.5) 14.5 % (11.5-14.5) Platelet Count 147 x10^3/uL (140-400) 168 x10^3/uL (140-400) Neutrophils (%) (Auto) 81 % (31-73) 82 % (31-73) Lymphocytes (%) (Auto) 12 % (24-48) 12 % (24-48) Monocytes (%) (Auto) 6 % (0-9) 5 % (0-9) Eosinophils (%) (Auto) 0 % (0-3) 1 % (0-3) Basophils (%) (Auto) 0 % (0-3) 0 % (0-3) Neutrophils # (Auto) 5.4 x10^3/uL (1.8-7.7) 7.3 x10^3/uL (1.8-7.7) Lymphocytes # (Auto) 0.8 x10^3/uL (1.0-4.8) 1.0 x10^3/uL (1.0-4.8) Monocytes # (Auto) 0.4 x10^3/uL (0.0-1.1) 0.5 x10^3/uL (0.0-1.1) Eosinophils # (Auto) 0.0 x10^3/uL (0.0-0.7) 0.1 x10^3/uL (0.0-0.7) Basophils # (Auto) 0.0 x10^3/uL (0.0-0.2) 0.0 x10^3/uL (0.0-0.2) Prothrombin Time 15.3 SEC (11.7-14.0) Prothromb Time International Ratio 1.2 (0.8-1.1) Activated Partial Thromboplast Time 45 SEC (24-38) Fibrinogen 451 mg/dL (200-440) Sodium Level 146 mmol/L (136-145) 147 mmol/L (136-145) Potassium Level 4.2 mmol/L (3.5-5.1) 4.0 mmol/L (3.5-5.1) Chloride Level 115 mmol/L (98-107) 114 mmol/L (98-107) Carbon Dioxide Level 20 mmol/L (21-32) 18 mmol/L (21-32) Anion Gap 11 (6-14) 15 (6-14) Blood Urea Nitrogen 36 mg/dL (7-20) 38 mg/dL (7-20) Creatinine 2.4 mg/dL (0.6-1.0) 2.5 mg/dL (0.6-1.0) Estimated GFR (Cockcroft-Gault) 19.6 18.7 BUN/Creatinine Ratio 15 (6-20) 15 (6-20) Glucose Level 101 mg/dL (70-99) 133 mg/dL (70-99) Calcium Level 7.9 mg/dL (8.5-10.1) 8.1 mg/dL (8.5-10.1) Phosphorus Level 3.9 mg/dL (2.6-4.7) 3.7 mg/dL (2.6-4.7) Magnesium Level 2.0 mg/dL (1.8-2.4) 1.8 mg/dL (1.8-2.4) Total Bilirubin 0.5 mg/dL (0.2-1.0) 0.6 mg/dL (0.2-1.0) Aspartate Amino Transf (AST/SGOT) 65 U/L (15-37) 63 U/L (15-37) Alanine Aminotransferase (ALT/SGPT) 47 U/L (14-59) 46 U/L (14-59) Alkaline Phosphatase 94 U/L (46-116) 98 U/L (46-116) Total Protein 5.3 g/dL (6.4-8.2) 5.6 g/dL (6.4-8.2) Albumin 2.3 g/dL (3.4-5.0) 2.4 g/dL (3.4-5.0) Albumin/Globulin Ratio 0.8 (1.0-1.7) 0.8 (1.0-1.7) Glucose (Fingerstick) 98 mg/dL (70-99) Test 02/12/19 16:36 02/12/19 23:06 02/13/19 00:10 02/13/19 04:07 Glucose (Fingerstick) 122 mg/dL (70-99) 134 mg/dL (70-99) 125 mg/dL (70-99) 116 mg/dL (70-99) Test 02/13/19 05:57 02/13/19 06:00 02/13/19 08:33 02/13/19 09:00 Glucose (Fingerstick) 122 mg/dL (70-99) 122 mg/dL (70-99) White Blood Count 8.1 x10^3/uL (4.0-11.0) Red Blood Count 3.04 x10^6/uL (3.50-5.40) Hemoglobin 8.8 g/dL (12.0-15.5) Hematocrit 26.4 % (36.0-47.0) Mean Corpuscular Volume 87 fL (79-100) Mean Corpuscular Hemoglobin 29 pg (25-35) Mean Corpuscular Hemoglobin Concent 33 g/dL (31-37) Red Cell Distribution Width 14.7 % (11.5-14.5) Platelet Count 151 x10^3/uL (140-400) Neutrophils (%) (Auto) 84 % (31-73) Lymphocytes (%) (Auto) 8 % (24-48) Monocytes (%) (Auto) 7 % (0-9) Eosinophils (%) (Auto) 1 % (0-3) Basophils (%) (Auto) 0 % (0-3) Neutrophils # (Auto) 6.8 x10^3/uL (1.8-7.7) Lymphocytes # (Auto) 0.6 x10^3/uL (1.0-4.8) Monocytes # (Auto) 0.6 x10^3/uL (0.0-1.1) Eosinophils # (Auto) 0.1 x10^3/uL (0.0-0.7) Basophils # (Auto) 0.0 x10^3/uL (0.0-0.2) Sodium Level 148 mmol/L (136-145) Potassium Level 4.3 mmol/L (3.5-5.1) Chloride Level 115 mmol/L (98-107) Carbon Dioxide Level 17 mmol/L (21-32) Anion Gap 16 (6-14) Blood Urea Nitrogen 39 mg/dL (7-20) Creatinine 2.9 mg/dL (0.6-1.0) Estimated GFR (Cockcroft-Gault) 15.8 Glucose Level 134 mg/dL (70-99) Calcium Level 8.3 mg/dL (8.5-10.1) O2 Saturation 98 % (92-99) Arterial Blood pH 7.40 (7.35-7.45) Arterial Blood pCO2 at Patient Temp 23 mmHg (35-46) Arterial Blood pO2 at Patient Temp 118 mmHg (65-108) Arterial Blood HCO3 14 mmol/L (21-28) Arterial Blood Base Excess -10 mmol/L (-3-3) FiO2 40 Laboratory Tests Test 02/12/19 10:45 02/12/19 10:47 02/12/19 16:30 02/12/19 16:36 White Blood Count 6.7 x10^3/uL (4.0-11.0) 8.9 x10^3/uL (4.0-11.0) Red Blood Count 3.03 x10^6/uL (3.50-5.40) 3.27 x10^6/uL (3.50-5.40) Hemoglobin 8.8 g/dL (12.0-15.5) 9.4 g/dL (12.0-15.5) Hematocrit 26.3 % (36.0-47.0) 28.1 % (36.0-47.0) Mean Corpuscular Volume 87 fL (79-100) 86 fL (79-100) Mean Corpuscular Hemoglobin 29 pg (25-35) 29 pg (25-35) Mean Corpuscular Hemoglobin Concent 33 g/dL (31-37) 34 g/dL (31-37) Red Cell Distribution Width 14.6 % (11.5-14.5) 14.5 % (11.5-14.5) Platelet Count 147 x10^3/uL (140-400) 168 x10^3/uL (140-400) Neutrophils (%) (Auto) 81 % (31-73) 82 % (31-73) Lymphocytes (%) (Auto) 12 % (24-48) 12 % (24-48) Monocytes (%) (Auto) 6 % (0-9) 5 % (0-9) Eosinophils (%) (Auto) 0 % (0-3) 1 % (0-3) Basophils (%) (Auto) 0 % (0-3) 0 % (0-3) Neutrophils # (Auto) 5.4 x10^3/uL (1.8-7.7) 7.3 x10^3/uL (1.8-7.7) Lymphocytes # (Auto) 0.8 x10^3/uL (1.0-4.8) 1.0 x10^3/uL (1.0-4.8) Monocytes # (Auto) 0.4 x10^3/uL (0.0-1.1) 0.5 x10^3/uL (0.0-1.1) Eosinophils # (Auto) 0.0 x10^3/uL (0.0-0.7) 0.1 x10^3/uL (0.0-0.7) Basophils # (Auto) 0.0 x10^3/uL (0.0-0.2) 0.0 x10^3/uL (0.0-0.2) Prothrombin Time 15.3 SEC (11.7-14.0) Prothromb Time International Ratio 1.2 (0.8-1.1) Activated Partial Thromboplast Time 45 SEC (24-38) Fibrinogen 451 mg/dL (200-440) Sodium Level 146 mmol/L (136-145) 147 mmol/L (136-145) Potassium Level 4.2 mmol/L (3.5-5.1) 4.0 mmol/L (3.5-5.1) Chloride Level 115 mmol/L (98-107) 114 mmol/L (98-107) Carbon Dioxide Level 20 mmol/L (21-32) 18 mmol/L (21-32) Anion Gap 11 (6-14) 15 (6-14) Blood Urea Nitrogen 36 mg/dL (7-20) 38 mg/dL (7-20) Creatinine 2.4 mg/dL (0.6-1.0) 2.5 mg/dL (0.6-1.0) Estimated GFR (Cockcroft-Gault) 19.6 18.7 BUN/Creatinine Ratio 15 (6-20) 15 (6-20) Glucose Level 101 mg/dL (70-99) 133 mg/dL (70-99) Calcium Level 7.9 mg/dL (8.5-10.1) 8.1 mg/dL (8.5-10.1) Phosphorus Level 3.9 mg/dL (2.6-4.7) 3.7 mg/dL (2.6-4.7) Magnesium Level 2.0 mg/dL (1.8-2.4) 1.8 mg/dL (1.8-2.4) Total Bilirubin 0.5 mg/dL (0.2-1.0) 0.6 mg/dL (0.2-1.0) Aspartate Amino Transf (AST/SGOT) 65 U/L (15-37) 63 U/L (15-37) Alanine Aminotransferase (ALT/SGPT) 47 U/L (14-59) 46 U/L (14-59) Alkaline Phosphatase 94 U/L (46-116) 98 U/L (46-116) Total Protein 5.3 g/dL (6.4-8.2) 5.6 g/dL (6.4-8.2) Albumin 2.3 g/dL (3.4-5.0) 2.4 g/dL (3.4-5.0) Albumin/Globulin Ratio 0.8 (1.0-1.7) 0.8 (1.0-1.7) Glucose (Fingerstick) 98 mg/dL (70-99) 122 mg/dL (70-99) Test 02/12/19 23:06 02/13/19 00:10 02/13/19 04:07 02/13/19 05:57 Glucose (Fingerstick) 134 mg/dL (70-99) 125 mg/dL (70-99) 116 mg/dL (70-99) 122 mg/dL (70-99) Test 02/13/19 06:00 02/13/19 08:33 02/13/19 09:00 White Blood Count 8.1 x10^3/uL (4.0-11.0) Red Blood Count 3.04 x10^6/uL (3.50-5.40) Hemoglobin 8.8 g/dL (12.0-15.5) Hematocrit 26.4 % (36.0-47.0) Mean Corpuscular Volume 87 fL (79-100) Mean Corpuscular Hemoglobin 29 pg (25-35) Mean Corpuscular Hemoglobin Concent 33 g/dL (31-37) Red Cell Distribution Width 14.7 % (11.5-14.5) Platelet Count 151 x10^3/uL (140-400) Neutrophils (%) (Auto) 84 % (31-73) Lymphocytes (%) (Auto) 8 % (24-48) Monocytes (%) (Auto) 7 % (0-9) Eosinophils (%) (Auto) 1 % (0-3) Basophils (%) (Auto) 0 % (0-3) Neutrophils # (Auto) 6.8 x10^3/uL (1.8-7.7) Lymphocytes # (Auto) 0.6 x10^3/uL (1.0-4.8) Monocytes # (Auto) 0.6 x10^3/uL (0.0-1.1) Eosinophils # (Auto) 0.1 x10^3/uL (0.0-0.7) Basophils # (Auto) 0.0 x10^3/uL (0.0-0.2) Sodium Level 148 mmol/L (136-145) Potassium Level 4.3 mmol/L (3.5-5.1) Chloride Level 115 mmol/L (98-107) Carbon Dioxide Level 17 mmol/L (21-32) Anion Gap 16 (6-14) Blood Urea Nitrogen 39 mg/dL (7-20) Creatinine 2.9 mg/dL (0.6-1.0) Estimated GFR (Cockcroft-Gault) 15.8 Glucose Level 134 mg/dL (70-99) Calcium Level 8.3 mg/dL (8.5-10.1) Glucose (Fingerstick) 122 mg/dL (70-99) O2 Saturation 98 % (92-99) Arterial Blood pH 7.40 (7.35-7.45) Arterial Blood pCO2 at Patient Temp 23 mmHg (35-46) Arterial Blood pO2 at Patient Temp 118 mmHg (65-108) Arterial Blood HCO3 14 mmol/L (21-28) Arterial Blood Base Excess -10 mmol/L (-3-3) FiO2 40 Medications Active Scripts Medications Dose Route/Sig Max Daily Dose Days Date Category Dose Instructions Feosol (Ferrous Sulfate) 325 Mg Tablet 325 Mg PO [id number] 30 05/27/18 Rx Benzonatate 100 Mg Capsule 100 Mg PO [id number] 05/27/18 Rx Amlodipine Besylate 10 Mg Tablet 10 Mg PO DAILY 30 05/27/18 Rx Tradjenta (Linagliptin) 5 Mg Tablet 5 Mg PO DAILY 05/24/18 Reported Vitamin D3 (Cholecalciferol (Vitamin D3)) 1,000 Unit Tablet 1 Tab PO DAILY 05/24/18 Reported Trazodone Hcl 150 Mg Tablet 150 Mg PO HS 05/24/18 Reported Aspirin Ec (Aspirin) 325 Mg Tablet.dr 1 Tab PO DAILY 05/24/18 Reported Metoprolol Tartrate 25 Mg Tablet 1 Tab PO BID 11/21/14 Reported NEW MEDICATION BEGINNING 11/21/2014 PM DOSE MONITOR BLOOD PRESSURE DAILY Losartan Potassium 100 Mg Tablet 1 Tab PO DAILY 11/20/14 Reported Simvastatin 40 Mg Tablet 40 Mg PO DAILY 11/20/14 Reported Hydrocodone-Apap 10-325 (Hydrocodone Bit/Acetaminophen) 1 Each Tablet 1 Tab PO Q8HRS PRN 11/20/14 Reported Comments CXR 02/13 improving bilateral infiltrates, R>L Doppler US of legs negative Perfusion scan low probability Impression . 1. Acute hypoxic respiratory failure secondary to pneumonia and contribution of fluid overload 2. s/p cardiac arrest with possible/likely multiorgan ischemic injury 3.CKD worsened by cardiac arrest. 4. Sepsis 5. Abnormal cxr c/w CHF Plan . 1. Continue mechanical ventilatory support. 2. Agree with broad antibiotics covering GNR and Staph 3. prn lasix 4. patient has positive blood culture, identification pending and will ask ID to follow 5. wean off versed and assess MS gume/marisabel RN/ family JENNIFER MARTINEZ MD Feb 13, 2019 09:58
--- NOTE | 2019-02-13 10:29 | CARD ---
MR#: [id number] Date of Study: 02/13/2019 Ordering Physician: EVERARDO GOMEZ, Referring Physician: EVERARDO GOEMZ, Tech: Jessie Hsu APPROVED REPORT EXAM: Two-dimensional and M-mode echocardiogram with Doppler and color Doppler. Other Information Quality : AverageHR: 58bpm INDICATION Acute SC Chest Pain RISK FACTORS Hypertension Diabetes 2D DIMENSIONS RVDd2.3 (2.9-3.5cm)Left Atrium(2D)4.0 (1.6-4.0cm) IVSd1.2 (0.7-1.1cm)Aortic Root(2D)3.4 (2.0-3.7cm) LVDd5.4 (3.9-5.9cm)LVOT Diameter2.1 (1.8-2.4cm) PWd1.2 (0.7-1.1cm)LVDs4.1 (2.5-4.0cm) FS (%) 24.9 %SV69.4 ml LVEF(%)48.8 (>50%) Aortic Valve AoV Peak Scout.190.2cm/sAoV VTI44.0cm AO Peak GR.14.5mmHgLVOT VTI 18.78cm AO Mean GR.9mmHgAI P 1/2 [id number] Mitral Valve MV E Wieerpda69.0cm/sMV E Peak Gr.100mmHg MV DECEL [id number] A Cinisvec853.0cm/s MV E Mean Gr.2mmHgE/A Ratio0.8 Tricuspid Valve TR P. [id number]/sTR Peak Gr.30mmHg Pulmonary Vein S1 Nlyvaqtg27.2cm/sS2 Bltcfpvm90.00cm/s D2 Urvyesge99.0cm/sPVa [id number] LEFT VENTRICLE The Left Ventricle is mildly dilated. There is mild concentric left ventricular hypertrophy. The Ejec tion Fraction is 55-60%. Basal inferior and posterior valencia appears hypokinetic Transmitral Doppler f low pattern is Grade I-abnormal relaxation pattern. RIGHT VENTRICLE The right ventricle is normal size. There is normal right ventricular wall thickness. The right ventr icular systolic function is normal. ATRIA The left atrium is borderline dilated. The right atrium size is normal. The interatrial septum is int act with no evidence for an atrial septal defect or patent foramen ovale as noted on 2-D or Doppler i maging. AORTIC VALVE The aortic valve is thickened but opens well. Doppler and Color Flow revealed mild aortic regurgitati on. There is no significant aortic valvular stenosis. Calculated aortic valve area is 1.43 cm2 with m aximum pressure gradient of 15 mmHg and mean pressure gradient of 9 mmHg. MITRAL VALVE The mitral valve is thickened but opens well. There is no evidence of mitral valve prolapse. There is no mitral valve stenosis. Doppler and Color-flow revealed mild mitral regurgitation. TRICUSPID VALVE The tricuspid valve is normal in structure and function. Doppler and Color Flow revealed trace tricus pid regurgitation with an estimated PAP of 39 mmHg. There is no tricuspid valve stenosis. PULMONIC VALVE The pulmonary valve is normal in structure and function. Doppler and Color Flow revealed trace pulmon ic valvular regurgitation. GREAT VESSELS The aortic root is normal in size. The IVC is dilated and collapses <50% with inspiration. PERICARDIAL EFFUSION There is small left pleural effusion. There is no evidence of significant pericardial effusion. Critical Notification Critical Value: No <Conclusion> The Ejection Fraction is 55-60%. Basal inferior and posterior valencia appears hypokinetic. Transmitral Doppler flow pattern is Grade I-abnormal relaxation pattern. Mild aortic regurgitation. Mild mitral regurgitation. Trace tricuspid regurgitation with an estimated PAP of 39 mmHg. There is no evidence of significant pericardial effusion. Signed by : Shahid Canales, Electronically Approved : 02/13/2019 10:29:04
[2019-02-13] MEDS: HEPARIN for SUB-Q USE 5,000 UNIT/ML VIAL. SQ SCH ×2 (10:31→21:52)
--- NOTE | 2019-02-13 11:32 | PDOC ---
Renal-Progress Notes Subjective Notes Notes INTUBATED History of Present Illness Hx of present illness S/P CARDIAC ARREST Vitals Vitals Vital Signs Date Time Temp Pulse Resp B/P (MAP) Pulse Ox O2 Delivery O2 Flow Rate FiO2 02/13/19 10:00 98.7 59 18 125/39 100 Ventilator Weight Weight [ ] I.O. Intake and Output Intake and Output 02/13/19 07:00 Intake Total 523.1 ml Output Total 1005 ml Balance -481.9 ml Intake Oral 0 ml IV Total 523.1 ml Output Urine Total 1005 ml Labs Labs Laboratory Tests Test 02/12/19 16:30 02/12/19 16:36 02/12/19 23:06 02/13/19 00:10 White Blood Count 8.9 x10^3/uL (4.0-11.0) Red Blood Count 3.27 x10^6/uL (3.50-5.40) Hemoglobin 9.4 g/dL (12.0-15.5) Hematocrit 28.1 % (36.0-47.0) Mean Corpuscular Volume 86 fL (79-100) Mean Corpuscular Hemoglobin 29 pg (25-35) Mean Corpuscular Hemoglobin Concent 34 g/dL (31-37) Red Cell Distribution Width 14.5 % (11.5-14.5) Platelet Count 168 x10^3/uL (140-400) Neutrophils (%) (Auto) 82 % (31-73) Lymphocytes (%) (Auto) 12 % (24-48) Monocytes (%) (Auto) 5 % (0-9) Eosinophils (%) (Auto) 1 % (0-3) Basophils (%) (Auto) 0 % (0-3) Neutrophils # (Auto) 7.3 x10^3/uL (1.8-7.7) Lymphocytes # (Auto) 1.0 x10^3/uL (1.0-4.8) Monocytes # (Auto) 0.5 x10^3/uL (0.0-1.1) Eosinophils # (Auto) 0.1 x10^3/uL (0.0-0.7) Basophils # (Auto) 0.0 x10^3/uL (0.0-0.2) Sodium Level 147 mmol/L (136-145) Potassium Level 4.0 mmol/L (3.5-5.1) Chloride Level 114 mmol/L (98-107) Carbon Dioxide Level 18 mmol/L (21-32) Anion Gap 15 (6-14) Blood Urea Nitrogen 38 mg/dL (7-20) Creatinine 2.5 mg/dL (0.6-1.0) Estimated GFR (Cockcroft-Gault) 18.7 BUN/Creatinine Ratio 15 (6-20) Glucose Level 133 mg/dL (70-99) Calcium Level 8.1 mg/dL (8.5-10.1) Phosphorus Level 3.7 mg/dL (2.6-4.7) Magnesium Level 1.8 mg/dL (1.8-2.4) Total Bilirubin 0.6 mg/dL (0.2-1.0) Aspartate Amino Transf (AST/SGOT) 63 U/L (15-37) Alanine Aminotransferase (ALT/SGPT) 46 U/L (14-59) Alkaline Phosphatase 98 U/L (46-116) Total Protein 5.6 g/dL (6.4-8.2) Albumin 2.4 g/dL (3.4-5.0) Albumin/Globulin Ratio 0.8 (1.0-1.7) Glucose (Fingerstick) 122 mg/dL (70-99) 134 mg/dL (70-99) 125 mg/dL (70-99) Test 02/13/19 04:07 02/13/19 05:57 02/13/19 06:00 02/13/19 08:33 Glucose (Fingerstick) 116 mg/dL (70-99) 122 mg/dL (70-99) 122 mg/dL (70-99) White Blood Count 8.1 x10^3/uL (4.0-11.0) Red Blood Count 3.04 x10^6/uL (3.50-5.40) Hemoglobin 8.8 g/dL (12.0-15.5) Hematocrit 26.4 % (36.0-47.0) Mean Corpuscular Volume 87 fL (79-100) Mean Corpuscular Hemoglobin 29 pg (25-35) Mean Corpuscular Hemoglobin Concent 33 g/dL (31-37) Red Cell Distribution Width 14.7 % (11.5-14.5) Platelet Count 151 x10^3/uL (140-400) Neutrophils (%) (Auto) 84 % (31-73) Lymphocytes (%) (Auto) 8 % (24-48) Monocytes (%) (Auto) 7 % (0-9) Eosinophils (%) (Auto) 1 % (0-3) Basophils (%) (Auto) 0 % (0-3) Neutrophils # (Auto) 6.8 x10^3/uL (1.8-7.7) Lymphocytes # (Auto) 0.6 x10^3/uL (1.0-4.8) Monocytes # (Auto) 0.6 x10^3/uL (0.0-1.1) Eosinophils # (Auto) 0.1 x10^3/uL (0.0-0.7) Basophils # (Auto) 0.0 x10^3/uL (0.0-0.2) Sodium Level 148 mmol/L (136-145) Potassium Level 4.3 mmol/L (3.5-5.1) Chloride Level 115 mmol/L (98-107) Carbon Dioxide Level 17 mmol/L (21-32) Anion Gap 16 (6-14) Blood Urea Nitrogen 39 mg/dL (7-20) Creatinine 2.9 mg/dL (0.6-1.0) Estimated GFR (Cockcroft-Gault) 15.8 Glucose Level 134 mg/dL (70-99) Calcium Level 8.3 mg/dL (8.5-10.1) Test 02/13/19 09:00 O2 Saturation 98 % (92-99) Arterial Blood pH 7.40 (7.35-7.45) Arterial Blood pCO2 at Patient Temp 23 mmHg (35-46) Arterial Blood pO2 at Patient Temp 118 mmHg (65-108) Arterial Blood HCO3 14 mmol/L (21-28) Arterial Blood Base Excess -10 mmol/L (-3-3) FiO2 40 Micro Micro Microbiology 02/11/19 Blood Culture - Preliminary, Resulted NO GROWTH AFTER 1 DAY Review of Systems Constitutional: yes: unresponsive Physical Exam General Appearance: no apparent distress Skin: warm Respiratory: decreased breath sounds Heart: S1S2 Abdomen: soft, bowel sounds present Genitourinary: bladder flat Extremities: pulses present, no edema Neurology: other (ON THE VENT) Musculoskeletal: Other (fractures) Assessment Assessment IMP FOZIA-ATN WORSE WITH CR UP TO 2.8-OLIGOANURIC CKD STAGE 3 WITH CR OF 1.5-1.8 S/P CARDIAC ARREST SEPSIS PLAN ANTIBIOTICS S/P HYPOTHERMIA PROTOCOL IVF'S AND PRN LASIX POOR PROGNOSIS WILL FOLLOW ALEXIS TRAN MD Feb 13, 2019 11:32
[2019-02-13] MEDS ORDERED: MIDAZOLAM 100mg/100ml NS BAG 100 ML IV PRN (12:15)
--- NOTE | 2019-02-13 17:39 | PDOC ---
PROGRESS NOTES Chief Complaint Chief Complaint Cardiorespiratory arrest - s/p CPR and 3 rounds epinephrine. hypoxic respiratory failure, pneuonia Severe sepsis - likely 2/2 HCAP with right sided pneumonia, HCAP, broad abx Pulmonary edema - likely from CPR, will monitor with serial chest x-ray. 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 Metabolic acidosis with respiratory acidosis Acute encephalopathy toxic from sepsis. DM2 with hyperglycemia - HTN - likely etiology of her kidney disease, will monitor closely. H/O stroke - left cerebellar encephalomalacia Falls - likely 2/2 blindness. Legally blind - Normocytic anemia Moderate malnutrition - Hypoalbuminemia. History of Present Illness History of Present Illness s/p warming now, more alert, follows commands, vitals better still sedated, lightening as able, some improvement discussedw ith family full code status Vitals Vitals Vital Signs Date Time Temp Pulse Resp B/P (MAP) Pulse Ox O2 Delivery O2 Flow Rate FiO2 02/13/19 16:30 99 Ventilator 02/13/19 16:00 98.8 81 18 121/52 Physical Exam Physical Exam GENERAL: The patient is pale. Orally intubated and sedated. HEENT: Pupils equally round nonreactive. ETT and OGT in place. NECK: Supple. LUNGS: Coarse. HEART: S1 and S2 irregular. ABDOMEN: Soft. No guarding. Hypoactive bowel sounds. GENITOURINARY: Lovett in place. EXTREMITIES: No trace edema. No cyanosis. SKIN: Cool, pale cooling blanket in place. NEUROLOGIC: Unresponsive/sedated. RIJ without signs of any complications. General: No acute distress, Other Heart: Regular rate, No murmurs, Other Lungs: Other (diminished breath sounds, dependent rales) Abdomen: Normal bowel sounds, Soft, No tenderness, No hepatosplenomegaly, No masses Extremities: No clubbing, No cyanosis, No edema, Normal pulses, No tenderness/swelling Skin: No rashes, No breakdown, No significant lesion Labs LABS Laboratory Tests Test 02/12/19 23:06 02/13/19 00:10 02/13/19 04:07 02/13/19 05:57 Glucose (Fingerstick) 134 mg/dL (70-99) 125 mg/dL (70-99) 116 mg/dL (70-99) 122 mg/dL (70-99) Test 02/13/19 06:00 02/13/19 08:33 02/13/19 09:00 02/13/19 11:41 White Blood Count 8.1 x10^3/uL (4.0-11.0) Red Blood Count 3.04 x10^6/uL (3.50-5.40) Hemoglobin 8.8 g/dL (12.0-15.5) Hematocrit 26.4 % (36.0-47.0) Mean Corpuscular Volume 87 fL (79-100) Mean Corpuscular Hemoglobin 29 pg (25-35) Mean Corpuscular Hemoglobin Concent 33 g/dL (31-37) Red Cell Distribution Width 14.7 % (11.5-14.5) Platelet Count 151 x10^3/uL (140-400) Neutrophils (%) (Auto) 84 % (31-73) Lymphocytes (%) (Auto) 8 % (24-48) Monocytes (%) (Auto) 7 % (0-9) Eosinophils (%) (Auto) 1 % (0-3) Basophils (%) (Auto) 0 % (0-3) Neutrophils # (Auto) 6.8 x10^3/uL (1.8-7.7) Lymphocytes # (Auto) 0.6 x10^3/uL (1.0-4.8) Monocytes # (Auto) 0.6 x10^3/uL (0.0-1.1) Eosinophils # (Auto) 0.1 x10^3/uL (0.0-0.7) Basophils # (Auto) 0.0 x10^3/uL (0.0-0.2) Sodium Level 148 mmol/L (136-145) Potassium Level 4.3 mmol/L (3.5-5.1) Chloride Level 115 mmol/L (98-107) Carbon Dioxide Level 17 mmol/L (21-32) Anion Gap 16 (6-14) Blood Urea Nitrogen 39 mg/dL (7-20) Creatinine 2.9 mg/dL (0.6-1.0) Estimated GFR (Cockcroft-Gault) 15.8 Glucose Level 134 mg/dL (70-99) Calcium Level 8.3 mg/dL (8.5-10.1) Glucose (Fingerstick) 122 mg/dL (70-99) 106 mg/dL (70-99) O2 Saturation 98 % (92-99) Arterial Blood pH 7.40 (7.35-7.45) Arterial Blood pCO2 at Patient Temp 23 mmHg (35-46) Arterial Blood pO2 at Patient Temp 118 mmHg (65-108) Arterial Blood HCO3 14 mmol/L (21-28) Arterial Blood Base Excess -10 mmol/L (-3-3) FiO2 40 Assessment and Plan Assessmemt and Plan Problems Medical Problems: (1) Acute kidney injury superimposed on CKD Status: Acute (2) Anemia Status: Acute (3) Cardiorespiratory arrest Status: Acute (4) CKD (chronic kidney disease), stage III Status: Chronic (5) Elevated troponin I level Status: Acute (6) HCAP (healthcare-associated pneumonia) Status: Acute (7) Hypoalbuminemia Status: Acute (8) Metabolic acidosis with respiratory acidosis Status: Acute (9) Pulmonary edema Status: Acute (10) Renal insufficiency Status: Acute (11) Severe sepsis Status: Acute (12) Uncontrolled diabetes mellitus Status: Acute Comment Review of Relevant I have reviewed the following items malik (where applicable) has been applied. Labs Laboratory Tests Test 02/11/19 17:40 02/11/19 17:51 02/11/19 19:00 02/11/19 19:49 Lactic Acid Level 2.7 mmol/L (0.4-2.0) Troponin I Quantitative 0.765 ng/mL (0.000-0.055) Procalcitonin 1.22 ng/mL (0.00-0.10) Glucose (Fingerstick) 263 mg/dL (70-99) Nasal Screen MRSA (PCR) Negative (Negative) O2 Saturation 94 % (92-99) Arterial Blood pH 7.19 (7.35-7.45) Arterial Blood pH (Temp corrected) 7.23 Arterial Blood pCO2 at Patient Temp 51 mmHg (35-46) Arterial Blood pCO2 (Temp correct) 43 mmHg Arterial Blood pO2 at Patient Temp 76 mmHg (65-108) Arterial Blood pO2 (Temp corrected) 59 mmHg Arterial Blood HCO3 19 mmol/L (21-28) Arterial Blood Base Excess -9 mmol/L (-3-3) FiO2 80 Test 02/11/19 21:27 02/11/19 22:35 02/11/19 23:51 02/12/19 01:00 Glucose (Fingerstick) 146 mg/dL (70-99) 110 mg/dL (70-99) 94 mg/dL (70-99) 79 mg/dL (70-99) Test 02/12/19 02:18 02/12/19 06:18 02/12/19 06:20 02/12/19 08:30 Glucose (Fingerstick) 78 mg/dL (70-99) 105 mg/dL (70-99) Creatinine 2.3 mg/dL (0.6-1.0) Estimated GFR (Cockcroft-Gault) 20.6 O2 Saturation 99 % (92-99) Arterial Blood pH 7.43 (7.35-7.45) Arterial Blood pH (Temp corrected) 7.49 Arterial Blood pCO2 at Patient Temp 24 mmHg (35-46) Arterial Blood pCO2 (Temp correct) 21 mmHg Arterial Blood pO2 at Patient Temp 143 mmHg (65-108) Arterial Blood pO2 (Temp corrected) 122 mmHg Arterial Blood HCO3 16 mmol/L (21-28) Arterial Blood Base Excess -7 mmol/L (-3-3) FiO2 60 Test 02/12/19 10:45 02/12/19 10:47 02/12/19 16:30 02/12/19 16:36 White Blood Count 6.7 x10^3/uL (4.0-11.0) 8.9 x10^3/uL (4.0-11.0) Red Blood Count 3.03 x10^6/uL (3.50-5.40) 3.27 x10^6/uL (3.50-5.40) Hemoglobin 8.8 g/dL (12.0-15.5) 9.4 g/dL (12.0-15.5) Hematocrit 26.3 % (36.0-47.0) 28.1 % (36.0-47.0) Mean Corpuscular Volume 87 fL (79-100) 86 fL (79-100) Mean Corpuscular Hemoglobin 29 pg (25-35) 29 pg (25-35) Mean Corpuscular Hemoglobin Concent 33 g/dL (31-37) 34 g/dL (31-37) Red Cell Distribution Width 14.6 % (11.5-14.5) 14.5 % (11.5-14.5) Platelet Count 147 x10^3/uL (140-400) 168 x10^3/uL (140-400) Neutrophils (%) (Auto) 81 % (31-73) 82 % (31-73) Lymphocytes (%) (Auto) 12 % (24-48) 12 % (24-48) Monocytes (%) (Auto) 6 % (0-9) 5 % (0-9) Eosinophils (%) (Auto) 0 % (0-3) 1 % (0-3) Basophils (%) (Auto) 0 % (0-3) 0 % (0-3) Neutrophils # (Auto) 5.4 x10^3/uL (1.8-7.7) 7.3 x10^3/uL (1.8-7.7) Lymphocytes # (Auto) 0.8 x10^3/uL (1.0-4.8) 1.0 x10^3/uL (1.0-4.8) Monocytes # (Auto) 0.4 x10^3/uL (0.0-1.1) 0.5 x10^3/uL (0.0-1.1) Eosinophils # (Auto) 0.0 x10^3/uL (0.0-0.7) 0.1 x10^3/uL (0.0-0.7) Basophils # (Auto) 0.0 x10^3/uL (0.0-0.2) 0.0 x10^3/uL (0.0-0.2) Prothrombin Time 15.3 SEC (11.7-14.0) Prothromb Time International Ratio 1.2 (0.8-1.1) Activated Partial Thromboplast Time 45 SEC (24-38) Fibrinogen 451 mg/dL (200-440) Sodium Level 146 mmol/L (136-145) 147 mmol/L (136-145) Potassium Level 4.2 mmol/L (3.5-5.1) 4.0 mmol/L (3.5-5.1) Chloride Level 115 mmol/L (98-107) 114 mmol/L (98-107) Carbon Dioxide Level 20 mmol/L (21-32) 18 mmol/L (21-32) Anion Gap 11 (6-14) 15 (6-14) Blood Urea Nitrogen 36 mg/dL (7-20) 38 mg/dL (7-20) Creatinine 2.4 mg/dL (0.6-1.0) 2.5 mg/dL (0.6-1.0) Estimated GFR (Cockcroft-Gault) 19.6 18.7 BUN/Creatinine Ratio 15 (6-20) 15 (6-20) Glucose Level 101 mg/dL (70-99) 133 mg/dL (70-99) Calcium Level 7.9 mg/dL (8.5-10.1) 8.1 mg/dL (8.5-10.1) Phosphorus Level 3.9 mg/dL (2.6-4.7) 3.7 mg/dL (2.6-4.7) Magnesium Level 2.0 mg/dL (1.8-2.4) 1.8 mg/dL (1.8-2.4) Total Bilirubin 0.5 mg/dL (0.2-1.0) 0.6 mg/dL (0.2-1.0) Aspartate Amino Transf (AST/SGOT) 65 U/L (15-37) 63 U/L (15-37) Alanine Aminotransferase (ALT/SGPT) 47 U/L (14-59) 46 U/L (14-59) Alkaline Phosphatase 94 U/L (46-116) 98 U/L (46-116) Total Protein 5.3 g/dL (6.4-8.2) 5.6 g/dL (6.4-8.2) Albumin 2.3 g/dL (3.4-5.0) 2.4 g/dL (3.4-5.0) Albumin/Globulin Ratio 0.8 (1.0-1.7) 0.8 (1.0-1.7) Glucose (Fingerstick) 98 mg/dL (70-99) 122 mg/dL (70-99) Test 02/12/19 23:06 02/13/19 00:10 02/13/19 04:07 02/13/19 05:57 Glucose (Fingerstick) 134 mg/dL (70-99) 125 mg/dL (70-99) 116 mg/dL (70-99) 122 mg/dL (70-99) Test 02/13/19 06:00 02/13/19 08:33 02/13/19 09:00 02/13/19 11:41 White Blood Count 8.1 x10^3/uL (4.0-11.0) Red Blood Count 3.04 x10^6/uL (3.50-5.40) Hemoglobin 8.8 g/dL (12.0-15.5) Hematocrit 26.4 % (36.0-47.0) Mean Corpuscular Volume 87 fL (79-100) Mean Corpuscular Hemoglobin 29 pg (25-35) Mean Corpuscular Hemoglobin Concent 33 g/dL (31-37) Red Cell Distribution Width 14.7 % (11.5-14.5) Platelet Count 151 x10^3/uL (140-400) Neutrophils (%) (Auto) 84 % (31-73) Lymphocytes (%) (Auto) 8 % (24-48) Monocytes (%) (Auto) 7 % (0-9) Eosinophils (%) (Auto) 1 % (0-3) Basophils (%) (Auto) 0 % (0-3) Neutrophils # (Auto) 6.8 x10^3/uL (1.8-7.7) Lymphocytes # (Auto) 0.6 x10^3/uL (1.0-4.8) Monocytes # (Auto) 0.6 x10^3/uL (0.0-1.1) Eosinophils # (Auto) 0.1 x10^3/uL (0.0-0.7) Basophils # (Auto) 0.0 x10^3/uL (0.0-0.2) Sodium Level 148 mmol/L (136-145) Potassium Level 4.3 mmol/L (3.5-5.1) Chloride Level 115 mmol/L (98-107) Carbon Dioxide Level 17 mmol/L (21-32) Anion Gap 16 (6-14) Blood Urea Nitrogen 39 mg/dL (7-20) Creatinine 2.9 mg/dL (0.6-1.0) Estimated GFR (Cockcroft-Gault) 15.8 Glucose Level 134 mg/dL (70-99) Calcium Level 8.3 mg/dL (8.5-10.1) Glucose (Fingerstick) 122 mg/dL (70-99) 106 mg/dL (70-99) O2 Saturation 98 % (92-99) Arterial Blood pH 7.40 (7.35-7.45) Arterial Blood pCO2 at Patient Temp 23 mmHg (35-46) Arterial Blood pO2 at Patient Temp 118 mmHg (65-108) Arterial Blood HCO3 14 mmol/L (21-28) Arterial Blood Base Excess -10 mmol/L (-3-3) FiO2 40 Laboratory Tests Test 02/12/19 23:06 02/13/19 00:10 02/13/19 04:07 02/13/19 05:57 Glucose (Fingerstick) 134 mg/dL (70-99) 125 mg/dL (70-99) 116 mg/dL (70-99) 122 mg/dL (70-99) Test 02/13/19 06:00 02/13/19 08:33 02/13/19 09:00 02/13/19 11:41 White Blood Count 8.1 x10^3/uL (4.0-11.0) Red Blood Count 3.04 x10^6/uL (3.50-5.40) Hemoglobin 8.8 g/dL (12.0-15.5) Hematocrit 26.4 % (36.0-47.0) Mean Corpuscular Volume 87 fL (79-100) Mean Corpuscular Hemoglobin 29 pg (25-35) Mean Corpuscular Hemoglobin Concent 33 g/dL (31-37) Red Cell Distribution Width 14.7 % (11.5-14.5) Platelet Count 151 x10^3/uL (140-400) Neutrophils (%) (Auto) 84 % (31-73) Lymphocytes (%) (Auto) 8 % (24-48) Monocytes (%) (Auto) 7 % (0-9) Eosinophils (%) (Auto) 1 % (0-3) Basophils (%) (Auto) 0 % (0-3) Neutrophils # (Auto) 6.8 x10^3/uL (1.8-7.7) Lymphocytes # (Auto) 0.6 x10^3/uL (1.0-4.8) Monocytes # (Auto) 0.6 x10^3/uL (0.0-1.1) Eosinophils # (Auto) 0.1 x10^3/uL (0.0-0.7) Basophils # (Auto) 0.0 x10^3/uL (0.0-0.2) Sodium Level 148 mmol/L (136-145) Potassium Level 4.3 mmol/L (3.5-5.1) Chloride Level 115 mmol/L (98-107) Carbon Dioxide Level 17 mmol/L (21-32) Anion Gap 16 (6-14) Blood Urea Nitrogen 39 mg/dL (7-20) Creatinine 2.9 mg/dL (0.6-1.0) Estimated GFR (Cockcroft-Gault) 15.8 Glucose Level 134 mg/dL (70-99) Calcium Level 8.3 mg/dL (8.5-10.1) Glucose (Fingerstick) 122 mg/dL (70-99) 106 mg/dL (70-99) O2 Saturation 98 % (92-99) Arterial Blood pH 7.40 (7.35-7.45) Arterial Blood pCO2 at Patient Temp 23 mmHg (35-46) Arterial Blood pO2 at Patient Temp 118 mmHg (65-108) Arterial Blood HCO3 14 mmol/L (21-28) Arterial Blood Base Excess -10 mmol/L (-3-3) FiO2 40 Microbiology 02/11/19 Blood Culture - Preliminary, Resulted NO GROWTH AFTER 2 DAYS Medications Current Medications Midazolam HCl 100 ml @ 0 mls/hr 1X ONCE IV Last administered on 02/11/19at 12:24; Start 02/11/19 at 12:00; Stop 02/11/19 at 12:01; Status DC Sodium Bicarbonate (Sodium Bicarb Adult 8.4% Syr) 100 meq 1X ONCE IV Last administered on 02/11/19at 12:24; Start 02/11/19 at 12:15; Stop 02/11/19 at 12: 22; Status DC Piperacillin Sod/ Tazobactam Sod 3.375 gm/Sodium Chloride 50 ml @ 100 mls/hr 1X ONCE IV Last administered on 02/11/19at 13:50; Start 02/11/19 at 12:30; Stop 02/11/19 at 12:59; Status DC Vancomycin HCl 1.5 gm/Sodium Chloride 500 ml @ 250 mls/hr 1X ONCE IV Last administered on 02/11/19at 15:58; Start 02/11/19 at 12:30; Stop 02/11/19 at 14:29; Status DC Sodium Chloride 1,000 ml @ 1,000 mls/hr 1X ONCE IV Last administered on 02/11/19at 12:29; Start 02/11/19 at 12:15; Stop 02/11/19 at 13:14; Status DC Sodium Chloride 1,000 ml @ 1,000 mls/hr 1X ONCE IV Last administered on 02/11/19at 12:29; Start 02/11/19 at 12:15; Stop 02/11/19 at 13:14; Status DC Sodium Chloride 1,000 ml @ 150 mls/hr Q6H40M IV Last administered on 02/11/19at 13:50; Start 02/11/19 at 12:23; Stop 02/11/19 at 14:38; Status DC Sodium Chloride 1,000 ml @ 1,000 mls/hr 1X ONCE IV ; Start 02/11/19 at 12:45; Stop 02/11/19 at 13:44; Status DC Norepinephrine Bitartrate 250 ml @ 14.288 mls/ hr CONT PRN IV SEE I/O RECORD Last administered on 02/11/19at 16:15; Start 02/11/19 at 13:45 Vasopressin 40 unit/Dextrose 102 ml @ 6 mls/hr CONT PRN IV SEE I/O RECORD; Start 02/11/19 at 13:45 Albumin Human 100 ml @ 100 mls/hr PRN Q8HRS PRN IV HYPOTENSION; Start 02/11/19 at 14:45 Piperacillin Sod/ Tazobactam Sod (Zosyn Per Pharmacy) 1 each PRN DAILY PRN MC SEE COMMENTS; Start 02/11/19 at 15:15; Status UNV Piperacillin Sod/ Tazobactam Sod 3.375 gm/Sodium Chloride 50 ml @ 100 mls/hr Q6HRS IV Last administered on 02/13/19at 11:24; Start 02/11/19 at 18:00 Fentanyl Citrate (Fentanyl 2ml Vial) 100 mcg 1X ONCE IV Last administered on 02/11/19at 15:30; Start 02/11/19 at 15:15; Stop 02/11/19 at 15:16; Status DC Magnesium Sulfate/ Dextrose 100 ml @ 100 mls/hr 1X ONCE IV Last administered on 02/11/19at 16:10; Start 02/11/19 at 15:15; Stop 02/11/19 at 16:14; Status DC Buspirone HCl (Buspar) 30 mg Q8H NG Last administered on 02/13/19at 07:23; Start 02/11/19 at 15:15; Stop 02/13/19 at 07:16; Status DC Acetaminophen (Tylenol) 650 mg Q4H NG Last administered on 02/13/19at 11:24; Start 02/11/19 at 15:15; Stop 02/13/19 at 12:15; Status DC Artificial Tears (Artificial Tears) 1 drop Q6HRS OU Last administered on 02/13/19at 11:24; Start 02/11/19 at 18:00; Stop 02/13/19 at 12:15; Status DC Artificial Tears (Artificial Tears) 1 drop PRN Q15MIN PRN OU DRY EYE; Start 02/11/19 at 15:15; Stop 02/13/19 at 12:15; Status DC Heparin Sodium (Porcine) (Heparin Sodium) 5,000 unit BID SQ Last administered on 02/13/19at 10:31; Start 02/11/19 at 15:15; Stop 02/13/19 at 12:15; Status DC Pantoprazole Sodium (PROTONIX VIAL for IV PUSH) 40 mg DAILYAC IVP Last administered on 02/13/19at 07:23; Start 02/11/19 at 15:20; Stop 02/13/19 at 12:21; Status DC Fentanyl Citrate 30 ml @ 0 mls/hr CONT PRN IV PER PROTOCOL. Last administered on 02/13/19at 05:48; Start 02/11/19 at 15:15; Stop 02/13/19 at 12:15; Status DC Propofol 100 ml @ 0 mls/hr CONT PRN IV PER PROTOCOL.; Start 02/11/19 at 15:15; Stop 02/13/19 at 12:15; Status DC Midazolam HCl 100 ml @ 0 mls/hr CONT PRN IV PER PROTOCOL. Last administered on 02/12/19at 22:21; Start 02/11/19 at 15:15; Stop 02/13/19 at 12:15; Status DC Vecuronium [place] (Norcuron Bolus) 8 mg PRN Q1HR PRN IV SHIVERING Last administered on 02/12/19at 10:49; Start 02/11/19 at 15:15; Stop 02/13/19 at 12: 15; Status DC Magnesium Sulfate/ Dextrose 100 ml @ 100 mls/hr PRN DAILY PRN IV MAG level 2.4-3.0mg/dl; Start 02/11/19 at 15:15; Stop 02/13/19 at 12:15; Status DC Magnesium Sulfate 100 ml @ 100 mls/hr PRN DAILY PRN IV MAG level less than 2.4mg/dl; Start 02/11/19 at 15:15; Stop 02/13/19 at 12:15; Status DC Potassium Chloride/Water 50 ml @ 50 mls/hr PRN DAILY PRN IV K+ level less than 3.1 mEq/l; Start 02/11/19 at 15:15; Stop 02/13/19 at 12:15; Status DC Potassium Chloride/Water 100 ml @ 100 mls/hr PRN DAILY PRN IV K+ level 3.1- 3.4mEq/L; Start 02/11/19 at 15:15; Stop 02/13/19 at 12:15; Status DC Sodium Phosphate 20 mmol/Dextrose 256.6667 ml @ 65 mls/hr PRN DAILY PRN IV Phosphrous less than 1mg/dL; Start 02/11/19 at 15:15; Stop 02/13/19 at 12:15; Status DC Sodium Phosphate 10 mmol/Dextrose 103.3333 ml @ 50 mls/hr PRN DAILY PRN IV Phosphorus is 1 - 2.5mg/dL; Start 02/11/19 at 15:15; Stop 02/13/19 at 12:15; Status DC Insulin Glargine (Lantus Syringe) 10 unit QHS SQ ; Start 02/11/19 at 21:00; Stop 02/11/19 at 18:32; Status DC Insulin Human Lispro (HumaLOG) 0-7 UNITS Q6HRS SQ ; Start 02/11/19 at 18:00; Stop 02/11/19 at 18:32; Status DC Dextrose (Dextrose 50%-Water Syringe) 12.5 gm PRN Q15MIN PRN IV SEE COMMENTS; Start 02/11/19 at 16:15 Dextrose 250 ml PRN Q15MIN PRN IV SEE COMMENTS; Start 02/11/19 at 16:15 Vancomycin HCl 1 gm/Sodium Chloride 250 ml @ 250 mls/hr Q12H IV ; Start 02/12/19 at 04:15; Status UNV Vancomycin HCl (Vanco Per Pharmacy) 1 each PRN DAILY PRN MC SEE COMMENTS Last administered on 02/11/19at 17:02; Start 02/11/19 at 16:15; Stop 02/12/19 at 09:49; Status DC Vancomycin HCl (Vancomycin Random Level) 1 each 1X ONCE MC Last administered on 02/12/19at 13:42; Start 02/12/19 at 12:30; Stop 02/12/19 at 12:31; Status DC Insulin Human Regular 150 unit/ Sodium Chloride 151.5 ml @ 0 mls/hr CONT PRN IV SEE I/O RECORD Last administered on 02/11/19at 18:19; Start 02/11/19 at 18:00 Furosemide (Lasix) 40 mg 1X ONCE IVP Last administered on 02/12/19at 09:36; Start 02/12/19 at 08:30; Stop 02/12/19 at 08:31; Status DC Acetaminophen (Tylenol) 650 mg Q4HRS NG ; Start 02/13/19 at 12:30 Artificial Tears (Artificial Tears) 1 drop Q6HRS OU ; Start 02/13/19 at 12:30 Heparin Sodium (Porcine) (Heparin Sodium) 5,000 unit BID SQ ; Start 02/13/19 at 21:00 Pantoprazole Sodium (PROTONIX VIAL for IV PUSH) 40 mg DAILY IVP ; Start 02/14/19 at 09:00 Fentanyl Citrate 30 ml @ 0 mls/hr CONT PRN IV PER PROTOCOL. Last administered on 02/13/19at 13:58; Start 02/13/19 at 12:15 Midazolam HCl 100 ml @ 0 mls/hr CONT PRN IV PER PROTOCOL.; Start 02/13/19 at 12:15 Epinephrine HCl (EPINEPHrine SYRINGE) 3 mg STK-MED ONCE .ROUTE ; Start 02/11/19 at 14:00; Stop 02/13/19 at 14:26; Status DC Sodium Bicarbonate (Sodium Bicarb Adult 8.4% Syr) 100 meq STK-MED ONCE .ROUTE ; Start 02/11/19 at 14:00; Stop 02/13/19 at 14:26; Status DC Active Scripts Active Feosol (Ferrous Sulfate) 325 Mg Tablet 325 Mg PO [id number] 30 Days Benzonatate 100 Mg Capsule 100 Mg PO [id number] Days Amlodipine Besylate 10 Mg Tablet 10 Mg PO DAILY 30 Days Reported Tradjenta (Linagliptin) 5 Mg Tablet 5 Mg PO DAILY Vitamin D3 (Cholecalciferol (Vitamin D3)) 1,000 Unit Tablet 1 Tab PO DAILY Trazodone Hcl 150 Mg Tablet 150 Mg PO HS Aspirin Ec (Aspirin) 325 Mg Tablet.dr 1 Tab PO DAILY Metoprolol Tartrate 25 Mg Tablet 1 Tab PO BID NEW MEDICATION BEGINNING 11/21/2014 PM DOSE MONITOR BLOOD PRESSURE DAILY Losartan Potassium 100 Mg Tablet 1 Tab PO DAILY Simvastatin 40 Mg Tablet 40 Mg PO DAILY Hydrocodone-Apap 10-325 (Hydrocodone Bit/Acetaminophen) 1 Each Tablet 1 Tab PO Q8HRS PRN Vitals/I & O Vital Sign - Last 24 Hours 02/12/19 02/12/19 02/12/19 02/12/19 18:00 18:07 18:30 19:00 Temp 91.6 92.0 Pulse 43 Resp 18 18 B/P (MAP) 128/39 (68) Pulse Ox 100 100 O2 Delivery Ventilator 02/12/19 02/12/19 02/12/19 02/12/19 19:00 20:00 20:00 20:00 Temp 92.1 92.4 B/P (MAP) O2 Delivery Mechanical Ventilator 02/12/19 02/12/19 02/12/19 02/12/19 20:00 20:13 21:00 21:00 Temp 93.0 Pulse 47 51 Resp 18 18 B/P (MAP) 121/38 (65) 91/33 (52) Pulse Ox 100 100 100 O2 Delivery Ventilator Ventilator Ventilator 02/12/19 02/12/19 02/12/19 02/12/19 22:00 22:00 22:21 22:56 Temp 93.6 Pulse 51 Resp 18 18 18 B/P (MAP) 135/47 (76) Pulse Ox 99 100 100 O2 Delivery Ventilator Ventilator Ventilator 02/12/19 02/12/19 02/13/19 02/13/19 23:00 23:00 00:00 00:00 Temp 94.2 94.5 Pulse 55 60 Resp 18 18 B/P (MAP) 125/43 (70) 123/43 (69) Pulse Ox 100 100 O2 Delivery Ventilator Ventilator 02/13/19 02/13/19 02/13/19 02/13/19 00:00 00:00 00:10 01:00 Temp 95.0 B/P (MAP) Pulse Ox 100 O2 Delivery Mechanical Ventilator Ventilator 02/13/19 02/13/19 02/13/19 02/13/19 01:00 02:00 02:00 02:08 Temp 95.3 Pulse 50 52 Resp 18 18 B/P (MAP) 119/39 (65) 142/46 (78) Pulse Ox 100 100 100 O2 Delivery Ventilator Ventilator Ventilator 02/13/19 02/13/19 02/13/19 02/13/19 03:00 03:00 04:00 04:00 Temp 95.8 96.4 Pulse 53 Resp 18 B/P (MAP) 117/41 (66) Pulse Ox 100 O2 Delivery Ventilator Mechanical Ventilator 02/13/19 02/13/19 02/13/19 02/13/19 04:00 04:00 04:58 05:00 Temp 96.8 Pulse 65 Resp 18 B/P (MAP) 102/41 (61) Pulse Ox 99 100 O2 Delivery Ventilator Ventilator 02/13/19 02/13/19 02/13/19 02/13/19 05:00 05:48 06:00 06:00 Temp 97.2 Pulse 57 64 Resp 18 18 18 B/P (MAP) 148/50 (82) 101/39 (59) Pulse Ox 100 100 100 O2 Delivery Ventilator Ventilator Ventilator 02/13/19 02/13/19 02/13/19 02/13/19 06:19 07:00 07:00 07:45 Temp 97.8 97.8 97.8 Pulse 61 61 Resp 18 18 18 B/P (MAP) 112/39 (63) 112/39 Pulse Ox 100 100 100 O2 Delivery Ventilator Ventilator Mechanical Ventilator 02/13/19 02/13/19 02/13/19 02/13/19 08:00 08:00 08:00 09:00 Temp 98.1 36.7 98.5 98.1 Pulse 58 58 58 56 Resp 18 18 B/P (MAP) 116/39 (64) 116/39 116/39 (64) 116/39 Pulse Ox 100 100 100 O2 Delivery Ventilator Ventilator 02/13/19 02/13/19 02/13/19 02/13/19 09:00 09:00 10:00 10:00 Temp 98.5 98.7 98.7 98.5 98.7 Pulse 56 57 59 Resp 18 18 18 B/P (MAP) 112/34 (60) 122/39 (66) 125/39 Pulse Ox 100 100 100 100 O2 Delivery Ventilator Ventilator Ventilator Ventilator 02/13/19 02/13/19 02/13/19 02/13/19 11:00 11:00 11:00 12:00 Temp 98.7 98.7 98.7 98.7 98.7 Pulse 63 63 65 Resp 18 18 18 B/P (MAP) 95/44 95/44 (61) 116/42 (66) Pulse Ox 100 100 100 100 O2 Delivery Ventilator Ventilator Ventilator Ventilator 02/13/19 02/13/19 02/13/19 02/13/19 12:00 12:00 12:00 12:22 Temp 98.7 Pulse 65 65 Resp 18 B/P (MAP) 116/42 (66) 116/39 Pulse Ox 100 100 O2 Delivery Ventilator Mechanical Ventilator Ventilator 02/13/19 02/13/19 02/13/19 02/13/19 13:00 13:00 13:58 14:00 Temp 98.8 98.8 98.7 98.8 98.7 Pulse 65 65 58 Resp 18 18 18 18 B/P (MAP) 117/39 117/39 (65) 124/44 (70) Pulse Ox 100 100 100 100 O2 Delivery Ventilator Ventilator Ventilator Ventilator 02/13/19 02/13/19 02/13/19 02/13/19 14:00 14:10 15:00 15:00 Temp 98.7 98.7 98.7 98.7 Pulse 58 75 75 Resp 18 18 18 B/P (MAP) 124/44 118/48 (71) 118/48 Pulse Ox 100 98 99 99 O2 Delivery Ventilator Ventilator Ventilator Ventilator 02/13/19 02/13/19 02/13/19 02/13/19 16:00 16:00 16:00 16:00 Temp 98.8 98.8 98.8 Pulse 81 81 81 Resp 18 18 B/P (MAP) 121/52 (75) 121/52 (75) 121/52 Pulse Ox 99 99 O2 Delivery Ventilator Mechanical Ventilator Ventilator 02/13/19 16:30 Pulse Ox 99 O2 Delivery Ventilator Intake and Output 02/12/19 02/12/19 02/13/19 15:00 23:00 07:00 Intake Total 150 ml 373.1 ml Output Total 430 ml 420 ml 155 ml Balance -430 ml -270 ml 218.1 ml REGINALD PAYAN MD Feb 13, 2019 17:39
[2019-02-13] MEDS ORDERED: dilTIAZem IV PUSH 25 MG/5 ML VIAL IVP ONE (18:00)
[2019-02-13] MEDS: dilTIAZem INJ 125 MG in IV DEXTROSE 5% 100ML 100 ML IV PRN (18:06)
[2019-02-13] MEDS ORDERED: fentaNYL PF VIAL 100 MCG/2 ML VIAL IV PRN (19:45)
[2019-02-13] MEDS ORDERED: METOPROLOL TARTRATE 5 MG/5 ML VIAL. IVP ONE (19:45)
[2019-02-14] VITALS (16 sets, daily range): BP systolic 117–172; BP diastolic 46–68
[2019-02-14] MEDS: PIPERACILLIN/TAZOBACTAM 3.375 GM in IV NORMAL SALINE 50ML 50 ML IV SCH ×2 (00:06→06:26)
[2019-02-14] MEDS: ACETAMINOPHEN 650 MG/20.3 ML SOLUTION. NG SCH ×4 (00:06→12:42)
[2019-02-14 01:01] LABS: BILIRUBIN,URINE NEGATIVE (NEG); CLARITY,URINE CLOUDY; COLOR,URINE YELLOW; NITRITE,URINE NEGATIVE (NEG); PROTEIN,URINE >=300 mg/dL (NEG-TRACE); UROBILINOGEN,URINE 0.2 mg/dL (0.2 mg/dL)
[2019-02-14 01:12] LABS: RBC,URINE TNTC /HPF (0-2)
[2019-02-14 01:13] LABS: BACTERIA,URINE FEW /HPF (0-FEW); SQUAMOUS EPITHELIAL CELL,UR FEW /LPF
[2019-02-14] MEDS: POLYVINYL ALCOHOL 1.4% OPHTH SOLUTION 15ML BOTTLE. OU SCH ×2 (06:00→12:44)
[2019-02-14 07:03] LABS: CALCIUM 8.6 mg/dL (8.5-10.1); CREATININE 3.8 mg/dL (0.6-1.0); GFR 11.5; MAGNESIUM 2.2 mg/dL (1.8-2.4); PHOSPHORUS 6.5 mg/dL (2.6-4.7); POTASSIUM 5.1 mmol/L (3.5-5.1)
--- NOTE | 2019-02-14 07:36 | PDOC ---
Infectious Disease Note Subjective Subjective pt is on vent, off sedation ROS ROS no n/v/d/fever Vital Sign Vital Signs Vital Signs Date Time Temp Pulse Resp B/P (MAP) Pulse Ox O2 Delivery O2 Flow Rate FiO2 02/14/19 06:00 99.2 93 172/64 100 02/14/19 06:00 23 Ventilator Physical Exam PHYSICAL EXAM GENERAL: The patient is pale. Orally intubated . HEENT: Pupils equally round nonreactive. ETT and OGT in place. NECK: Supple. LUNGS: Coarse. HEART: S1 and S2 irregular. ABDOMEN: Soft. No guarding. Hypoactive bowel sounds. GENITOURINARY: Lovett in place. EXTREMITIES: No trace edema. No cyanosis. SKIN: Cool, pale cooling blanket in place. NEUROLOGIC: Unresponsive. RIJ without signs of any complications. Labs Lab Laboratory Tests Test 02/13/19 08:33 02/13/19 09:00 02/13/19 11:41 02/13/19 21:20 Glucose (Fingerstick) 122 mg/dL (70-99) 106 mg/dL (70-99) O2 Saturation 98 % (92-99) Arterial Blood pH 7.40 (7.35-7.45) Arterial Blood pCO2 at Patient Temp 23 mmHg (35-46) Arterial Blood pO2 at Patient Temp 118 mmHg (65-108) Arterial Blood HCO3 14 mmol/L (21-28) Arterial Blood Base Excess -10 mmol/L (-3-3) FiO2 40 Urine Collection Type U cath Urine Color Yellow Urine Clarity Cloudy Urine pH 5.0 Urine Specific [employer] 1.025 Urine Protein >=300 mg/dL (NEG-TRACE) Urine Glucose (UA) 100 mg/dL (NEG) Urine Ketones (Stick) Trace mg/dL (NEG) Urine Blood Large (NEG) Urine Nitrite Negative (NEG) Urine Bilirubin Negative (NEG) Urine Urobilinogen Dipstick 0.2 mg/dL (0.2 mg/dL) Urine Leukocyte Esterase Large (NEG) Urine RBC Tntc /HPF (0-2) Urine WBC 5-10 /HPF (0-4) Urine Squamous Epithelial Cells Few /LPF Urine Bacteria Few /HPF (0-FEW) Urine Mucus Mod /LPF Test 02/14/19 00:16 02/14/19 06:30 Glucose (Fingerstick) 150 mg/dL (70-99) Sodium Level 148 mmol/L (136-145) Potassium Level 5.1 mmol/L (3.5-5.1) Chloride Level 115 mmol/L (98-107) Carbon Dioxide Level 17 mmol/L (21-32) Anion Gap 16 (6-14) Blood Urea Nitrogen 48 mg/dL (7-20) Creatinine 3.8 mg/dL (0.6-1.0) Estimated GFR (Cockcroft-Gault) 11.5 Glucose Level 165 mg/dL (70-99) Calcium Level 8.6 mg/dL (8.5-10.1) Phosphorus Level 6.5 mg/dL (2.6-4.7) Magnesium Level 2.2 mg/dL (1.8-2.4) Micro BLOOD CULTURE Final GRAM POSITIVE COCCI IN CHAINS SEEN IN 1 OF 2 BOTTLES; 1 SET WAS DRAWN; RESULTS WERE CALLED TO [facility] DENIS IN ICU AT 0815; 02/12/19 BY KAYLIE. THE BLOOD CULTURES HAVE BEEN SENT TO [facility] FOR FURTHER WORKUP. Objective Assessment 1. Sepsis with Gram-positive cocci bacteremia, present on admission. 2. Healthcare-acquired pneumonia. 3. Status post cardiopulmonary arrest. 4. Allergy to CEPHALOSPORINS, UNKNOWN REACTION. 5. Lactic acidosis. 6. Acute kidney injury on chronic kidney disease. 7. Diabetes mellitus. Plan Plan of Care Continue the Zosyn. adjust Labs in am Monitor closely D/w nursing Critically ill MARCELLUS CARDENAS MD Feb 14, 2019 07:36
[2019-02-14] MEDS: dilTIAZem INJ 125 MG in IV DEXTROSE 5% 100ML 100 ML IV PRN (07:49)
[2019-02-14] MEDS: HEPARIN for SUB-Q USE 5,000 UNIT/ML VIAL. SQ SCH (08:29)
[2019-02-14] MEDS ORDERED: PROPOFOL 100 ML IV PRN (08:30)
[2019-02-14 08:50] LABS: BASE EXCESS ABG -12 mmol/L (-3-3); HCO3 ABG 16 mmol/L (21-28); PCO2 ABG 39 mmHg (35-46); PO2 ABG 94 mmHg (65-108); SAT O2 ABG 96 % (92-99)
[2019-02-14] MEDS ORDERED: PANTOPRAZOLE IV PUSH 40 MG VIAL. IVP SCH (09:00)
--- NOTE | 2019-02-14 09:32 | PDOC ---
PROGRESS NOTES Assessment Problems Medical Problems: (1) Acute kidney injury superimposed on CKD Status: Acute (2) Anemia Status: Acute (3) Cardiorespiratory arrest Status: Acute (4) CKD (chronic kidney disease), stage III Status: Chronic (5) Elevated troponin I level Status: Acute (6) HCAP (healthcare-associated pneumonia) Status: Acute (7) Hypoalbuminemia Status: Acute (8) Metabolic acidosis with respiratory acidosis Status: Acute (9) Pulmonary edema Status: Acute (10) Renal insufficiency Status: Acute (11) Severe sepsis Status: Acute (12) Uncontrolled diabetes mellitus Status: Acute Anoxic encephalopathy, barely done with hypothermia protocol, still on heavy sedation, too soon to make a prognosis. Prior left cerebellar and right frontal infarcts. Plan Discussed with patient's family, she is now do not resuscitate, daughter would like to continue full aggressive care for another day or 2 before deciding to discontinue lifesaving measures Subjective None Objective Vital Signs Date Time Temp Pulse Resp B/P (MAP) Pulse Ox O2 Delivery O2 Flow Rate FiO2 02/14/19 08:15 97 Ventilator 02/14/19 06:00 99.2 93 172/64 02/14/19 06:00 23 Intake and Output 02/14/19 07:00 Intake Total 642 ml Output Total 210 ml Balance 432 ml IV Total 76 ml Tube Feeding 466 ml Other 100 ml Output Urine Total 210 ml Gastric Drainage Total 0 ml PHYSICAL EXAM Intubated. No response to loud voice. Triggers ventilator Pupil small, not reactive No spontaneous extraocular movements CN: no focal findings. Muscle tone: normal. Muscle strength: twitch of movement to pain in the feet DTR: 1+ Plantar reflex: silent Gait: not examined in bed. Sensory exam: not cooperative. Cerebellar: not cooperative Review of Relevant I have reviewed the following items malik (where applicable) has been applied. Labs Laboratory Tests Test 02/12/19 10:45 02/12/19 10:47 02/12/19 16:30 02/12/19 16:36 White Blood Count 6.7 x10^3/uL (4.0-11.0) 8.9 x10^3/uL (4.0-11.0) Red Blood Count 3.03 x10^6/uL (3.50-5.40) 3.27 x10^6/uL (3.50-5.40) Hemoglobin 8.8 g/dL (12.0-15.5) 9.4 g/dL (12.0-15.5) Hematocrit 26.3 % (36.0-47.0) 28.1 % (36.0-47.0) Mean Corpuscular Volume 87 fL (79-100) 86 fL (79-100) Mean Corpuscular Hemoglobin 29 pg (25-35) 29 pg (25-35) Mean Corpuscular Hemoglobin Concent 33 g/dL (31-37) 34 g/dL (31-37) Red Cell Distribution Width 14.6 % (11.5-14.5) 14.5 % (11.5-14.5) Platelet Count 147 x10^3/uL (140-400) 168 x10^3/uL (140-400) Neutrophils (%) (Auto) 81 % (31-73) 82 % (31-73) Lymphocytes (%) (Auto) 12 % (24-48) 12 % (24-48) Monocytes (%) (Auto) 6 % (0-9) 5 % (0-9) Eosinophils (%) (Auto) 0 % (0-3) 1 % (0-3) Basophils (%) (Auto) 0 % (0-3) 0 % (0-3) Neutrophils # (Auto) 5.4 x10^3/uL (1.8-7.7) 7.3 x10^3/uL (1.8-7.7) Lymphocytes # (Auto) 0.8 x10^3/uL (1.0-4.8) 1.0 x10^3/uL (1.0-4.8) Monocytes # (Auto) 0.4 x10^3/uL (0.0-1.1) 0.5 x10^3/uL (0.0-1.1) Eosinophils # (Auto) 0.0 x10^3/uL (0.0-0.7) 0.1 x10^3/uL (0.0-0.7) Basophils # (Auto) 0.0 x10^3/uL (0.0-0.2) 0.0 x10^3/uL (0.0-0.2) Prothrombin Time 15.3 SEC (11.7-14.0) Prothromb Time International Ratio 1.2 (0.8-1.1) Activated Partial Thromboplast Time 45 SEC (24-38) Fibrinogen 451 mg/dL (200-440) Sodium Level 146 mmol/L (136-145) 147 mmol/L (136-145) Potassium Level 4.2 mmol/L (3.5-5.1) 4.0 mmol/L (3.5-5.1) Chloride Level 115 mmol/L (98-107) 114 mmol/L (98-107) Carbon Dioxide Level 20 mmol/L (21-32) 18 mmol/L (21-32) Anion Gap 11 (6-14) 15 (6-14) Blood Urea Nitrogen 36 mg/dL (7-20) 38 mg/dL (7-20) Creatinine 2.4 mg/dL (0.6-1.0) 2.5 mg/dL (0.6-1.0) Estimated GFR (Cockcroft-Gault) 19.6 18.7 BUN/Creatinine Ratio 15 (6-20) 15 (6-20) Glucose Level 101 mg/dL (70-99) 133 mg/dL (70-99) Calcium Level 7.9 mg/dL (8.5-10.1) 8.1 mg/dL (8.5-10.1) Phosphorus Level 3.9 mg/dL (2.6-4.7) 3.7 mg/dL (2.6-4.7) Magnesium Level 2.0 mg/dL (1.8-2.4) 1.8 mg/dL (1.8-2.4) Total Bilirubin 0.5 mg/dL (0.2-1.0) 0.6 mg/dL (0.2-1.0) Aspartate Amino Transf (AST/SGOT) 65 U/L (15-37) 63 U/L (15-37) Alanine Aminotransferase (ALT/SGPT) 47 U/L (14-59) 46 U/L (14-59) Alkaline Phosphatase 94 U/L (46-116) 98 U/L (46-116) Total Protein 5.3 g/dL (6.4-8.2) 5.6 g/dL (6.4-8.2) Albumin 2.3 g/dL (3.4-5.0) 2.4 g/dL (3.4-5.0) Albumin/Globulin Ratio 0.8 (1.0-1.7) 0.8 (1.0-1.7) Glucose (Fingerstick) 98 mg/dL (70-99) 122 mg/dL (70-99) Test 02/12/19 23:06 02/13/19 00:10 02/13/19 04:07 02/13/19 05:57 Glucose (Fingerstick) 134 mg/dL (70-99) 125 mg/dL (70-99) 116 mg/dL (70-99) 122 mg/dL (70-99) Test 02/13/19 06:00 02/13/19 08:33 02/13/19 09:00 02/13/19 11:41 White Blood Count 8.1 x10^3/uL (4.0-11.0) Red Blood Count 3.04 x10^6/uL (3.50-5.40) Hemoglobin 8.8 g/dL (12.0-15.5) Hematocrit 26.4 % (36.0-47.0) Mean Corpuscular Volume 87 fL (79-100) Mean Corpuscular Hemoglobin 29 pg (25-35) Mean Corpuscular Hemoglobin Concent 33 g/dL (31-37) Red Cell Distribution Width 14.7 % (11.5-14.5) Platelet Count 151 x10^3/uL (140-400) Neutrophils (%) (Auto) 84 % (31-73) Lymphocytes (%) (Auto) 8 % (24-48) Monocytes (%) (Auto) 7 % (0-9) Eosinophils (%) (Auto) 1 % (0-3) Basophils (%) (Auto) 0 % (0-3) Neutrophils # (Auto) 6.8 x10^3/uL (1.8-7.7) Lymphocytes # (Auto) 0.6 x10^3/uL (1.0-4.8) Monocytes # (Auto) 0.6 x10^3/uL (0.0-1.1) Eosinophils # (Auto) 0.1 x10^3/uL (0.0-0.7) Basophils # (Auto) 0.0 x10^3/uL (0.0-0.2) Sodium Level 148 mmol/L (136-145) Potassium Level 4.3 mmol/L (3.5-5.1) Chloride Level 115 mmol/L (98-107) Carbon Dioxide Level 17 mmol/L (21-32) Anion Gap 16 (6-14) Blood Urea Nitrogen 39 mg/dL (7-20) Creatinine 2.9 mg/dL (0.6-1.0) Estimated GFR (Cockcroft-Gault) 15.8 Glucose Level 134 mg/dL (70-99) Calcium Level 8.3 mg/dL (8.5-10.1) Glucose (Fingerstick) 122 mg/dL (70-99) 106 mg/dL (70-99) O2 Saturation 98 % (92-99) Arterial Blood pH 7.40 (7.35-7.45) Arterial Blood pCO2 at Patient Temp 23 mmHg (35-46) Arterial Blood pO2 at Patient Temp 118 mmHg (65-108) Arterial Blood HCO3 14 mmol/L (21-28) Arterial Blood Base Excess -10 mmol/L (-3-3) FiO2 40 Test 02/13/19 21:20 02/14/19 00:16 02/14/19 06:30 02/14/19 09:06 Urine Collection Type U cath Urine Color Yellow Urine Clarity Cloudy Urine pH 5.0 Urine Specific [place] 1.025 Urine Protein >=300 mg/dL (NEG-TRACE) Urine Glucose (UA) 100 mg/dL (NEG) Urine Ketones (Stick) Trace mg/dL (NEG) Urine Blood Large (NEG) Urine Nitrite Negative (NEG) Urine Bilirubin Negative (NEG) Urine Urobilinogen Dipstick 0.2 mg/dL (0.2 mg/dL) Urine Leukocyte Esterase Large (NEG) Urine RBC Tntc /HPF (0-2) Urine WBC 5-10 /HPF (0-4) Urine Squamous Epithelial Cells Few /LPF Urine Bacteria Few /HPF (0-FEW) Urine Mucus Mod /LPF Glucose (Fingerstick) 150 mg/dL (70-99) 171 mg/dL (70-99) Sodium Level 148 mmol/L (136-145) Potassium Level 5.1 mmol/L (3.5-5.1) Chloride Level 115 mmol/L (98-107) Carbon Dioxide Level 17 mmol/L (21-32) Anion Gap 16 (6-14) Blood Urea Nitrogen 48 mg/dL (7-20) Creatinine 3.8 mg/dL (0.6-1.0) Estimated GFR (Cockcroft-Gault) 11.5 Glucose Level 165 mg/dL (70-99) Calcium Level 8.6 mg/dL (8.5-10.1) Phosphorus Level 6.5 mg/dL (2.6-4.7) Magnesium Level 2.2 mg/dL (1.8-2.4) Laboratory Tests Test 02/13/19 11:41 02/13/19 21:20 02/14/19 00:16 02/14/19 06:30 Glucose (Fingerstick) 106 mg/dL (70-99) 150 mg/dL (70-99) Urine Collection Type U cath Urine Color Yellow Urine Clarity Cloudy Urine pH 5.0 Urine Specific [place] 1.025 Urine Protein >=300 mg/dL (NEG-TRACE) Urine Glucose (UA) 100 mg/dL (NEG) Urine Ketones (Stick) Trace mg/dL (NEG) Urine Blood Large (NEG) Urine Nitrite Negative (NEG) Urine Bilirubin Negative (NEG) Urine Urobilinogen Dipstick 0.2 mg/dL (0.2 mg/dL) Urine Leukocyte Esterase Large (NEG) Urine RBC Tntc /HPF (0-2) Urine WBC 5-10 /HPF (0-4) Urine Squamous Epithelial Cells Few /LPF Urine Bacteria Few /HPF (0-FEW) Urine Mucus Mod /LPF Sodium Level 148 mmol/L (136-145) Potassium Level 5.1 mmol/L (3.5-5.1) Chloride Level 115 mmol/L (98-107) Carbon Dioxide Level 17 mmol/L (21-32) Anion Gap 16 (6-14) Blood Urea Nitrogen 48 mg/dL (7-20) Creatinine 3.8 mg/dL (0.6-1.0) Estimated GFR (Cockcroft-Gault) 11.5 Glucose Level 165 mg/dL (70-99) Calcium Level 8.6 mg/dL (8.5-10.1) Phosphorus Level 6.5 mg/dL (2.6-4.7) Magnesium Level 2.2 mg/dL (1.8-2.4) Test 02/14/19 09:06 Glucose (Fingerstick) 171 mg/dL (70-99) Microbiology 02/11/19 Blood Culture - Preliminary, Resulted NO GROWTH AFTER 2 DAYS Medications Current Medications Midazolam HCl 100 ml @ 0 mls/hr 1X ONCE IV Last administered on 02/11/19at 12:24; Start 02/11/19 at 12:00; Stop 02/11/19 at 12:01; Status DC Sodium Bicarbonate (Sodium Bicarb Adult 8.4% Syr) 100 meq 1X ONCE IV Last administered on 02/11/19at 12:24; Start 02/11/19 at 12:15; Stop 02/11/19 at 12:22; Status DC Piperacillin Sod/ Tazobactam Sod 3.375 gm/Sodium Chloride 50 ml @ 100 mls/hr 1X ONCE IV Last administered on 02/11/19at 13:50; Start 02/11/19 at 12:30; Stop 02/11/19 at 12:59; Status DC Vancomycin HCl 1.5 gm/Sodium Chloride 500 ml @ 250 mls/hr 1X ONCE IV Last administered on 02/11/19at 15:58; Start 02/11/19 at 12:30; Stop 02/11/19 at 14:29; Status DC Sodium Chloride 1,000 ml @ 1,000 mls/hr 1X ONCE IV Last administered on 02/11/19at 12:29; Start 02/11/19 at 12:15; Stop 02/11/19 at 13:14; Status DC Sodium Chloride 1,000 ml @ 1,000 mls/hr 1X ONCE IV Last administered on 02/11/19at 12:29; Start 02/11/19 at 12:15; Stop 02/11/19 at 13:14; Status DC Sodium Chloride 1,000 ml @ 150 mls/hr Q6H40M IV Last administered on 02/11/19at 13:50; Start 02/11/19 at 12:23; Stop 02/11/19 at 14:38; Status DC Sodium Chloride 1,000 ml @ 1,000 mls/hr 1X ONCE IV ; Start 02/11/19 at 12:45; Stop 02/11/19 at 13:44; Status DC Norepinephrine Bitartrate 250 ml @ 14.288 mls/ hr CONT PRN IV SEE I/O RECORD Last administered on 02/11/19at 16:15; Start 02/11/19 at 13:45 Vasopressin 40 unit/Dextrose 102 ml @ 6 mls/hr CONT PRN IV SEE I/O RECORD; Start 02/11/19 at 13:45 Albumin Human 100 ml @ 100 mls/hr PRN Q8HRS PRN IV HYPOTENSION; Start 02/11/19 at 14:45 Piperacillin Sod/ Tazobactam Sod (Zosyn Per Pharmacy) 1 each PRN DAILY PRN MC SEE COMMENTS; Start 02/11/19 at 15:15; Status UNV Piperacillin Sod/ Tazobactam Sod 3.375 gm/Sodium Chloride 50 ml @ 100 mls/hr Q6HRS IV Last administered on 02/14/19at 06:26; Start 02/11/19 at 18:00; Stop 02/14/19 at 07:35; Status DC Fentanyl Citrate (Fentanyl 2ml Vial) 100 mcg 1X ONCE IV Last administered on 02/11/19at 15:30; Start 02/11/19 at 15:15; Stop 02/11/19 at 15:16; Status DC Magnesium Sulfate/ Dextrose 100 ml @ 100 mls/hr 1X ONCE IV Last administered on 02/11/19at 16:10; Start 02/11/19 at 15:15; Stop 02/11/19 at 16:14; Status DC Buspirone HCl (Buspar) 30 mg Q8H NG Last administered on 02/13/19at 07:23; Start 02/11/19 at 15:15; Stop 02/13/19 at 07:16; Status DC Acetaminophen (Tylenol) 650 mg Q4H NG Last administered on 02/13/19at 11:24; Start 02/11/19 at 15:15; Stop 02/13/19 at 12:15; Status DC Artificial Tears (Artificial Tears) 1 drop Q6HRS OU Last administered on 02/13/19at 11:24; Start 02/11/19 at 18:00; Stop 02/13/19 at 12:15; Status DC Artificial Tears (Artificial Tears) 1 drop PRN Q15MIN PRN OU DRY EYE; Start 02/11/19 at 15:15; Stop 02/13/19 at 12:15; Status DC Heparin Sodium (Porcine) (Heparin Sodium) 5,000 unit BID SQ Last administered on 02/13/19at 10:31; Start 02/11/19 at 15:15; Stop 02/13/19 at 12:15; Status DC Pantoprazole Sodium (PROTONIX VIAL for IV PUSH) 40 mg DAILYAC IVP Last administered on 02/13/19at 07:23; Start 02/11/19 at 15:20; Stop 02/13/19 at 12:21; Status DC Fentanyl Citrate 30 ml @ 0 mls/hr CONT PRN IV PER PROTOCOL. Last administered on 02/13/19at 05:48; Start 02/11/19 at 15:15; Stop 02/13/19 at 12:15; Status DC Propofol 100 ml @ 0 mls/hr CONT PRN IV PER PROTOCOL.; Start 02/11/19 at 15:15; Stop 02/13/19 at 12:15; Status DC Midazolam HCl 100 ml @ 0 mls/hr CONT PRN IV PER PROTOCOL. Last administered on 02/12/19at 22:21; Start 02/11/19 at 15:15; Stop 02/13/19 at 12:15; Status DC Vecuronium [place] (Norcuron Bolus) 8 mg PRN Q1HR PRN IV SHIVERING Last administered on 02/12/19at 10:49; Start 02/11/19 at 15:15; Stop 02/13/19 at 12:15; Status DC Magnesium Sulfate/ Dextrose 100 ml @ 100 mls/hr PRN DAILY PRN IV MAG level 2.4-3.0mg/dl; Start 02/11/19 at 15:15; Stop 02/13/19 at 12:15; Status DC Magnesium Sulfate 100 ml @ 100 mls/hr PRN DAILY PRN IV MAG level less than 2.4mg/dl; Start 02/11/19 at 15:15; Stop 02/13/19 at 12:15; Status DC Potassium Chloride/Water 50 ml @ 50 mls/hr PRN DAILY PRN IV K+ level less than 3.1 mEq/l; Start 02/11/19 at 15:15; Stop 02/13/19 at 12:15; Status DC Potassium Chloride/Water 100 ml @ 100 mls/hr PRN DAILY PRN IV K+ level 3.1- 3.4mEq/L; Start 02/11/19 at 15:15; Stop 02/13/19 at 12:15; Status DC Sodium Phosphate 20 mmol/Dextrose 256.6667 ml @ 65 mls/hr PRN DAILY PRN IV Phosphrous less than 1mg/dL; Start 02/11/19 at 15:15; Stop 02/13/19 at 12:15; Status DC Sodium Phosphate 10 mmol/Dextrose 103.3333 ml @ 50 mls/hr PRN DAILY PRN IV Phosphorus is 1 - 2.5mg/dL; Start 02/11/19 at 15:15; Stop 02/13/19 at 12:15; Status DC Insulin Glargine (Lantus Syringe) 10 unit QHS SQ ; Start 02/11/19 at 21:00; Stop 02/11/19 at 18:32; Status DC Insulin Human Lispro (HumaLOG) 0-7 UNITS Q6HRS SQ ; Start 02/11/19 at 18:00; Stop 02/11/19 at 18:32; Status DC Dextrose (Dextrose 50%-Water Syringe) 12.5 gm PRN Q15MIN PRN IV SEE COMMENTS; Start 02/11/19 at 16:15 Dextrose 250 ml PRN Q15MIN PRN IV SEE COMMENTS; Start 02/11/19 at 16:15 Vancomycin HCl 1 gm/Sodium Chloride 250 ml @ 250 mls/hr Q12H IV ; Start 02/12/19 at 04:15; Status UNV Vancomycin HCl (Vanco Per Pharmacy) 1 each PRN DAILY PRN MC SEE COMMENTS Last administered on 02/11/19at 17:02; Start 02/11/19 at 16:15; Stop 02/12/19 at 09:49; Status DC Vancomycin HCl (Vancomycin Random Level) 1 each 1X ONCE MC Last administered on 02/12/19at 13:42; Start 02/12/19 at 12:30; Stop 02/12/19 at 12:31; Status DC Insulin Human Regular 150 unit/ Sodium Chloride 151.5 ml @ 0 mls/hr CONT PRN IV SEE I/O RECORD Last administered on 02/11/19at 18:19; Start 02/11/19 at 18:00 Furosemide (Lasix) 40 mg 1X ONCE IVP Last administered on 02/12/19at 09:36; Start 02/12/19 at 08:30; Stop 02/12/19 at 08:31; Status DC Acetaminophen (Tylenol) 650 mg Q4HRS NG Last administered on 02/14/19 08:30; Start 02/13/19 at 12:30 Artificial Tears (Artificial Tears) 1 drop Q6HRS OU Last administered on 02/13/19 18:06; Start 02/13/19 at 12:30 Heparin Sodium (Porcine) (Heparin Sodium) 5,000 unit BID SQ Last administered on 02/14/19 08:30; Start 02/13/19 at 21:00 Pantoprazole Sodium (PROTONIX VIAL for IV PUSH) 40 mg DAILY IVP Last administered on 02/14/19 08:30; Start 02/14/19 at 09:00 Fentanyl Citrate 30 ml @ 0 mls/hr CONT PRN IV PER PROTOCOL. Last administered on 02/13/19 13:58; Start 02/13/19 at 12:15 Midazolam HCl 100 ml @ 0 mls/hr CONT PRN IV PER PROTOCOL.; Start 02/13/19 at 12:15 Epinephrine HCl (EPINEPHrine SYRINGE) 3 mg STK-MED ONCE .ROUTE ; Start 02/11/19 at 14:00; Stop 02/13/19 at 14:26; Status DC Sodium Bicarbonate (Sodium Bicarb Adult 8.4% Syr) 100 meq STK-MED ONCE .ROUTE ; Start 02/11/19 at 14:00; Stop 02/13/19 at 14:26; Status DC Diltiazem HCl (Cardizem Iv Push) 10 mg 1X ONCE IVP Last administered on 02/13/19 18:06; Start 02/13/19 at 18:00; Stop 02/13/19 at 18:01; Status DC Diltiazem HCl 125 mg/Dextrose 125 ml @ 5 mls/hr CONT PRN IV SEE I/O RECORD Last administered on 02/14/19 07:49; Start 02/13/19 at 18:00 Metoprolol Tartrate (Lopressor Vial) 5 mg 1X ONCE IVP Last administered on 02/13/19 20:16; Start 02/13/19 at 19:45; Stop 02/13/19 at 19:47; Status DC Fentanyl Citrate (Fentanyl 2ml Vial) 50 mcg PRN Q2HR PRN IV PAIN; Start 02/13/19 at 19:45 Piperacillin Sod/ Tazobactam Sod 2.25 gm/Sodium Chloride 50 ml @ 100 mls/hr Q6HRS IV ; Start 02/14/19 at 12:00 Propofol 100 ml @ 1.143 mls/ hr CONT PRN IV SEE I/O RECORD Last administered on 02/14/19at 08:30; Start 02/14/19 at 08:30 Active Scripts Active Feosol (Ferrous Sulfate) 325 Mg Tablet 325 Mg PO [id number] 30 Days Benzonatate 100 Mg Capsule 100 Mg PO [id number] Days Amlodipine Besylate 10 Mg Tablet 10 Mg PO DAILY 30 Days Reported Tradjenta (Linagliptin) 5 Mg Tablet 5 Mg PO DAILY Vitamin D3 (Cholecalciferol (Vitamin D3)) 1,000 Unit Tablet 1 Tab PO DAILY Trazodone Hcl 150 Mg Tablet 150 Mg PO HS Aspirin Ec (Aspirin) 325 Mg Tablet.dr 1 Tab PO DAILY Metoprolol Tartrate 25 Mg Tablet 1 Tab PO BID NEW MEDICATION BEGINNING 11/21/2014 PM DOSE MONITOR BLOOD PRESSURE DAILY Losartan Potassium 100 Mg Tablet 1 Tab PO DAILY Simvastatin 40 Mg Tablet 40 Mg PO DAILY Hydrocodone-Apap 10-325 (Hydrocodone Bit/Acetaminophen) 1 Each Tablet 1 Tab PO Q8HRS PRN Vitals/I & O Vital Sign - Last 24 Hours 02/13/19 02/13/19 02/13/19 02/13/19 10:00 10:00 11:00 11:00 Temp 98.7 98.7 98.7 98.7 Pulse 57 59 63 Resp 18 18 18 B/P (MAP) 122/39 (66) 125/39 95/44 Pulse Ox 100 100 100 100 O2 Delivery Ventilator Ventilator Ventilator Ventilator 02/13/19 02/13/19 02/13/19 02/13/19 11:00 12:00 12:00 12:00 Temp 98.7 98.7 98.7 98.7 98.7 Pulse 63 65 65 65 Resp 18 18 18 B/P (MAP) 95/44 (61) 116/42 (66) 116/42 (66) 116/39 Pulse Ox 100 100 100 O2 Delivery Ventilator Ventilator Ventilator 02/13/19 02/13/19 02/13/19 02/13/19 12:00 12:22 13:00 13:00 Temp 98.8 98.8 98.8 Pulse 65 65 Resp 18 18 B/P (MAP) 117/39 117/39 (65) Pulse Ox 100 100 100 O2 Delivery Mechanical Ventilator Ventilator Ventilator Ventilator 02/13/19 02/13/19 02/13/19 02/13/19 13:58 14:00 14:00 14:10 Temp 98.7 98.7 98.7 Pulse 58 58 Resp 18 18 18 B/P (MAP) 124/44 (70) 124/44 Pulse Ox 100 100 100 98 O2 Delivery Ventilator Ventilator Ventilator Ventilator 02/13/19 02/13/19 02/13/19 02/13/19 15:00 15:00 16:00 16:00 Temp 98.7 98.7 98.8 98.7 98.8 Pulse 75 75 81 81 Resp 18 18 18 B/P (MAP) 118/48 (71) 118/48 121/52 (75) 121/52 (75) Pulse Ox 99 99 99 O2 Delivery Ventilator Ventilator Ventilator 02/13/19 02/13/19 02/13/19 02/13/19 16:00 16:00 16:30 17:00 Temp 98.8 98.7 98.7 Pulse 81 146 Resp 18 18 B/P (MAP) 121/52 144/68 (93) Pulse Ox 99 99 98 O2 Delivery Mechanical Ventilator Ventilator Ventilator Ventilator 02/13/19 02/13/19 02/13/19 02/13/19 17:00 18:00 18:00 18:06 Temp 98.7 99.2 99.2 99.2 Pulse 148 156 146 154 Resp 18 18 18 B/P (MAP) 144/68 163/68 163/68 (99) 164/72 Pulse Ox 98 97 97 O2 Delivery Ventilator Ventilator Ventilator 02/13/19 02/13/19 02/13/19 02/13/19 18:17 19:00 19:00 19:20 Temp 99.0 99.0 99.0 Pulse 147 147 Resp 18 16 28 B/P (MAP) 150/68 (95) 147/68 Pulse Ox 98 96 97 99 O2 Delivery Ventilator Ventilator Ventilator Ventilator 02/13/19 02/13/19 02/13/19 02/13/19 20:00 20:00 20:00 20:00 Temp 98.5 98.6 98.5 Pulse 142 142 142 Resp 32 28 B/P (MAP) 139/68 (91) 139/68 (91) 147/68 Pulse Ox 96 97 O2 Delivery Ventilator Ventilator Mechanical Ventilator 02/13/19 02/13/19 02/13/19 02/13/19 20:16 21:00 21:00 21:43 Temp 98.5 98.6 98.6 Pulse 154 79 79 Resp 28 25 B/P (MAP) 164/72 147/68 116/68 (84) Pulse Ox 97 98 98 O2 Delivery Ventilator Ventilator Ventilator 02/13/19 02/13/19 02/13/19 02/13/19 22:00 22:00 23:00 23:00 Temp 98.8 98.7 99.0 99.0 98.7 99.0 Pulse 82 82 125 82 Resp 32 23 25 23 B/P (MAP) 125/68 125/68 (87) 125/68 125/59 (81) Pulse Ox 98 98 98 97 O2 Delivery Ventilator Ventilator Ventilator Ventilator 02/13/19 02/13/19 02/14/19 02/14/19 23:45 23:59 00:00 00:01 Temp 99.0 Pulse 142 144 Resp 23 B/P (MAP) 139/68 (91) 125/68 Pulse Ox 98 98 O2 Delivery Ventilator Mechanical Ventilator Ventilator 02/14/19 02/14/19 02/14/19 02/14/19 00:01 01:00 01:00 02:00 Temp 99.0 98.2 98.3 98.2 99.0 98.3 98.2 Pulse 90 82 82 72 Resp 23 22 19 B/P (MAP) 144/51 (82) 144/52 144/52 (82) 140/52 (81) Pulse Ox 98 98 98 98 O2 Delivery Ventilator Ventilator Ventilator 02/14/19 02/14/19 02/14/19 02/14/19 02:00 02:49 03:00 03:00 Temp 36.8 98.2 98.2 98.2 98.2 Pulse 72 85 76 Resp 19 23 19 B/P (MAP) 140/52 157/58 (91) 132/48 (76) Pulse Ox 98 98 100 99 O2 Delivery Ventilator Ventilator Ventilator Ventilator 02/14/19 02/14/19 02/14/19 02/14/19 03:00 04:00 04:00 04:00 Temp 98.2 98.2 Pulse 85 85 85 Resp 23 B/P (MAP) 157/58 157/58 (91) 157/58 (91) Pulse Ox 100 100 O2 Delivery Ventilator Mechanical Ventilator 02/14/19 02/14/19 02/14/19 02/14/19 04:00 05:00 05:00 05:01 Temp 98.2 98.9 98.2 98.9 Pulse 85 88 85 Resp 16 B/P (MAP) 157/58 163/60 (94) 157/58 Pulse Ox 100 100 100 100 O2 Delivery Ventilator Ventilator 02/14/19 02/14/19 02/14/19 06:00 06:00 08:15 Temp 99.8 99.2 99.8 Pulse 93 93 Resp 23 B/P (MAP) 172/64 (100) 172/64 Pulse Ox 100 100 97 O2 Delivery Ventilator Ventilator Intake and Output 02/13/19 02/13/19 02/14/19 15:00 23:00 07:00 Intake Total 176 ml 466 ml Output Total 85 ml 95 ml 30 ml Balance -85 ml 81 ml 436 ml MARCY PAUL MD Feb 14, 2019 09:32
[2019-02-14 09:52] LABS: FIO2 ABG 50
--- NOTE | 2019-02-14 10:24 | PDOC ---
[employer] PROGRESS NOTE Chief Complaint Chief Complaint Cardiorespiratory arrest - s/p CPR and 3 rounds epinephrine. Hypoxic respiratory failure Pneumonia Severe sepsis - likely 2/2 HCAP with right sided pneumonia, HCAP, broad abx Pulmonary edema - likely from CPR, will monitor with serial chest x-ray. 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 Metabolic acidosis with respiratory acidosis Acute encephalopathy toxic from sepsis DM2 with hyperglycemia HTN - likely etiology of her kidney disease. H/O stroke - left cerebellar encephalomalacia Falls - likely 2/2 blindness. Legally blind - Normocytic anemia Moderate malnutrition - Hypoalbuminemia. History of Present Illness History of Present Illness 02/14/19 Pt seen and examined in the ICU Was sedated and resting Pt is sedated and on ventilation (Vent settings: AC/18/500/50% 5 PEEP) 02/13/19 S/p warming now, more alert, follows commands, vitals better still sedated, lightening as able Some improvement, discussed with family Vitals/I&O Vitals/I&O: Vital Signs Date Time Temp Pulse Resp B/P (MAP) Pulse Ox O2 Delivery O2 Flow Rate FiO2 02/14/19 09:00 98.0 78 117/46 100 Ventilator 02/14/19 09:00 21 I & O 02/13/19 02/13/19 02/14/19 15:00 23:00 07:00 Intake Total 226 ml 516 ml Output Total 85 ml 95 ml 30 ml Balance -85 ml 131 ml 486 ml Physical Exam Physical Exam: GENERAL: The patient is pale. Orally intubated . HEENT: Pupils equally round nonreactive. ETT and OGT in place. NECK: Supple. LUNGS: Coarse. HEART: S1 and S2 irregular. ABDOMEN: Soft. No guarding. Hypoactive bowel sounds. GENITOURINARY: Lovett in place. EXTREMITIES: No trace edema. No cyanosis. SKIN: Cool, pale cooling blanket in place. NEUROLOGIC: Unresponsive. RIJ without signs of any complications. General: No acute distress, Other Heart: Regular rate, No murmurs, Other Lungs: Other (diminished breath sounds, dependent rales) Abdomen: Normal bowel sounds, Soft, No tenderness, No hepatosplenomegaly, No masses Extremities: No clubbing, No cyanosis, No edema, Normal pulses, No tenderne ss/swelling Skin: No rashes, No breakdown, No significant lesion Labs Labs: Laboratory Tests Test 02/13/19 11:41 02/13/19 21:20 02/14/19 00:16 02/14/19 06:30 Glucose (Fingerstick) 106 mg/dL (70-99) 150 mg/dL (70-99) Urine Collection Type U cath Urine Color Yellow Urine Clarity Cloudy Urine pH 5.0 Urine Specific [place] 1.025 Urine Protein >=300 mg/dL (NEG-TRACE) Urine Glucose (UA) 100 mg/dL (NEG) Urine Ketones (Stick) Trace mg/dL (NEG) Urine Blood Large (NEG) Urine Nitrite Negative (NEG) Urine Bilirubin Negative (NEG) Urine Urobilinogen Dipstick 0.2 mg/dL (0.2 mg/dL) Urine Leukocyte Esterase Large (NEG) Urine RBC Tntc /HPF (0-2) Urine WBC 5-10 /HPF (0-4) Urine Squamous Epithelial Cells Few /LPF Urine Bacteria Few /HPF (0-FEW) Urine Mucus Mod /LPF Sodium Level 148 mmol/L (136-145) Potassium Level 5.1 mmol/L (3.5-5.1) Chloride Level 115 mmol/L (98-107) Carbon Dioxide Level 17 mmol/L (21-32) Anion Gap 16 (6-14) Blood Urea Nitrogen 48 mg/dL (7-20) Creatinine 3.8 mg/dL (0.6-1.0) Estimated GFR (Cockcroft-Gault) 11.5 Glucose Level 165 mg/dL (70-99) Calcium Level 8.6 mg/dL (8.5-10.1) Phosphorus Level 6.5 mg/dL (2.6-4.7) Magnesium Level 2.2 mg/dL (1.8-2.4) Test 02/14/19 08:15 02/14/19 09:06 O2 Saturation 96 % (92-99) Arterial Blood pH 7.21 (7.35-7.45) Arterial Blood pCO2 at Patient Temp 39 mmHg (35-46) Arterial Blood pO2 at Patient Temp 94 mmHg (65-108) Arterial Blood HCO3 16 mmol/L (21-28) Arterial Blood Base Excess -12 mmol/L (-3-3) FiO2 50 Glucose (Fingerstick) 171 mg/dL (70-99) Review of Systems Review of Systems: Unable to assess; pt is sedated Assessment and Plan Assessmemt and Plan Problems Medical Problems: (1) Acute kidney injury superimposed on CKD Status: Acute (2) Anemia Status: Acute (3) Cardiorespiratory arrest Status: Acute (4) CKD (chronic kidney disease), stage III Status: Chronic (5) Elevated troponin I level Status: Acute (6) HCAP (healthcare-associated pneumonia) Status: Acute (7) Hypoalbuminemia Status: Acute (8) Metabolic acidosis with respiratory acidosis Status: Acute (9) Pulmonary edema Status: Acute (10) Renal insufficiency Status: Acute (11) Severe sepsis Status: Acute (12) Uncontrolled diabetes mellitus Status: Acute Assessment Post code blue Cardiorespiratory arrest Anemia HCAP FOZIA superimposed on CKD Hypoalbuminemia Pulmonary edema Sepsis Uncontrolled DM Plan ICU monitoring Hypothermia protocol DVT prophylaxis DNR OG feeds Prognosis guarded Comment Review of Relevant I have reviewed the following items malik (where applicable) has been applied. Medications: Current Medications Medications (Trade) Dose Ordered Sig/Fredrick Route PRN Reason Start Time Stop Time Status Last Admin Dose Admin Acetaminophen (Tylenol) 650 mg Q4HRS NG 02/13/19 12:30 02/14/19 08:30 Artificial Tears (Artificial Tears) 1 drop Q6HRS OU 02/13/19 12:30 02/13/19 18:06 Heparin Sodium (Porcine) (Heparin Sodium) 5,000 unit BID SQ 02/13/19 21:00 02/14/19 08:30 Pantoprazole Sodium (PROTONIX VIAL for IV PUSH) 40 mg DAILY IVP 02/14/19 09:00 02/14/19 08:30 Fentanyl Citrate 30 ml @ 0 mls/hr CONT PRN IV PER PROTOCOL. 02/13/19 12:15 02/13/19 13:58 Diltiazem HCl (Cardizem Iv Push) 10 mg 1X ONCE IVP 02/13/19 18:00 02/13/19 18:01 DC 02/13/19 18:06 Diltiazem HCl 125 mg/Dextrose 125 ml @ 5 mls/hr CONT PRN IV SEE I/O RECORD 02/13/19 18:00 02/14/19 07:49 Metoprolol Tartrate (Lopressor Vial) 5 mg 1X ONCE IVP 02/13/19 19:45 02/13/19 19:47 DC 02/13/19 20:16 Propofol 100 ml @ 1.143 mls/ hr CONT PRN IV SEE I/O RECORD 02/14/19 08:30 02/14/19 08:30 AG YUN III DO Feb 14, 2019 10:24
[2019-02-14] MEDS ORDERED: PIPERACILLIN/TAZOBACTAM 2.25 GM in IV NORMAL SALINE 50ML 50 ML IV SCH (12:00)
[2019-02-14] MEDS ORDERED: INSULIN LISPRO 300 UNITS/3 ML VIAL. SQ SCH ×2 (12:00)
--- NOTE | 2019-02-14 12:05 | PDOC ---
PULMONARY PROGRESS NOTES Subjective 78 y.o. female care home resident. she had been treated for pneumonia there, but was unresponsive and having progressive hypoxia and respiratory difficulty. Upon presentation to [facility] she had pulseless cardiac arrest. She was intubated. s/p hypothermia protocol. re-warmed AC mode/ needed sedation for increase RR Vitals Vital Signs Date Time Temp Pulse Resp B/P (MAP) Pulse Ox O2 Delivery O2 Flow Rate FiO2 02/14/19 11:00 83 19 131/54 (79) 100 Ventilator 02/14/19 10:00 97.9 97.9 Lungs: Other (diminished breath sounds, dependent rales) Cardiovascular: S1, S2 Abdomen: Soft Extremities: No Edema Skin: Warm Labs Laboratory Tests Test 02/12/19 16:30 02/12/19 16:36 02/12/19 23:06 02/13/19 00:10 White Blood Count 8.9 x10^3/uL (4.0-11.0) Red Blood Count 3.27 x10^6/uL (3.50-5.40) Hemoglobin 9.4 g/dL (12.0-15.5) Hematocrit 28.1 % (36.0-47.0) Mean Corpuscular Volume 86 fL (79-100) Mean Corpuscular Hemoglobin 29 pg (25-35) Mean Corpuscular Hemoglobin Concent 34 g/dL (31-37) Red Cell Distribution Width 14.5 % (11.5-14.5) Platelet Count 168 x10^3/uL (140-400) Neutrophils (%) (Auto) 82 % (31-73) Lymphocytes (%) (Auto) 12 % (24-48) Monocytes (%) (Auto) 5 % (0-9) Eosinophils (%) (Auto) 1 % (0-3) Basophils (%) (Auto) 0 % (0-3) Neutrophils # (Auto) 7.3 x10^3/uL (1.8-7.7) Lymphocytes # (Auto) 1.0 x10^3/uL (1.0-4.8) Monocytes # (Auto) 0.5 x10^3/uL (0.0-1.1) Eosinophils # (Auto) 0.1 x10^3/uL (0.0-0.7) Basophils # (Auto) 0.0 x10^3/uL (0.0-0.2) Sodium Level 147 mmol/L (136-145) Potassium Level 4.0 mmol/L (3.5-5.1) Chloride Level 114 mmol/L (98-107) Carbon Dioxide Level 18 mmol/L (21-32) Anion Gap 15 (6-14) Blood Urea Nitrogen 38 mg/dL (7-20) Creatinine 2.5 mg/dL (0.6-1.0) Estimated GFR (Cockcroft-Gault) 18.7 BUN/Creatinine Ratio 15 (6-20) Glucose Level 133 mg/dL (70-99) Calcium Level 8.1 mg/dL (8.5-10.1) Phosphorus Level 3.7 mg/dL (2.6-4.7) Magnesium Level 1.8 mg/dL (1.8-2.4) Total Bilirubin 0.6 mg/dL (0.2-1.0) Aspartate Amino Transf (AST/SGOT) 63 U/L (15-37) Alanine Aminotransferase (ALT/SGPT) 46 U/L (14-59) Alkaline Phosphatase 98 U/L (46-116) Total Protein 5.6 g/dL (6.4-8.2) Albumin 2.4 g/dL (3.4-5.0) Albumin/Globulin Ratio 0.8 (1.0-1.7) Glucose (Fingerstick) 122 mg/dL (70-99) 134 mg/dL (70-99) 125 mg/dL (70-99) Test 02/13/19 04:07 02/13/19 05:57 02/13/19 06:00 02/13/19 08:33 Glucose (Fingerstick) 116 mg/dL (70-99) 122 mg/dL (70-99) 122 mg/dL (70-99) White Blood Count 8.1 x10^3/uL (4.0-11.0) Red Blood Count 3.04 x10^6/uL (3.50-5.40) Hemoglobin 8.8 g/dL (12.0-15.5) Hematocrit 26.4 % (36.0-47.0) Mean Corpuscular Volume 87 fL (79-100) Mean Corpuscular Hemoglobin 29 pg (25-35) Mean Corpuscular Hemoglobin Concent 33 g/dL (31-37) Red Cell Distribution Width 14.7 % (11.5-14.5) Platelet Count 151 x10^3/uL (140-400) Neutrophils (%) (Auto) 84 % (31-73) Lymphocytes (%) (Auto) 8 % (24-48) Monocytes (%) (Auto) 7 % (0-9) Eosinophils (%) (Auto) 1 % (0-3) Basophils (%) (Auto) 0 % (0-3) Neutrophils # (Auto) 6.8 x10^3/uL (1.8-7.7) Lymphocytes # (Auto) 0.6 x10^3/uL (1.0-4.8) Monocytes # (Auto) 0.6 x10^3/uL (0.0-1.1) Eosinophils # (Auto) 0.1 x10^3/uL (0.0-0.7) Basophils # (Auto) 0.0 x10^3/uL (0.0-0.2) Sodium Level 148 mmol/L (136-145) Potassium Level 4.3 mmol/L (3.5-5.1) Chloride Level 115 mmol/L (98-107) Carbon Dioxide Level 17 mmol/L (21-32) Anion Gap 16 (6-14) Blood Urea Nitrogen 39 mg/dL (7-20) Creatinine 2.9 mg/dL (0.6-1.0) Estimated GFR (Cockcroft-Gault) 15.8 Glucose Level 134 mg/dL (70-99) Calcium Level 8.3 mg/dL (8.5-10.1) Test 02/13/19 09:00 02/13/19 11:41 02/13/19 21:20 02/14/19 00:16 O2 Saturation 98 % (92-99) Arterial Blood pH 7.40 (7.35-7.45) Arterial Blood pCO2 at Patient Temp 23 mmHg (35-46) Arterial Blood pO2 at Patient Temp 118 mmHg (65-108) Arterial Blood HCO3 14 mmol/L (21-28) Arterial Blood Base Excess -10 mmol/L (-3-3) FiO2 40 Glucose (Fingerstick) 106 mg/dL (70-99) 150 mg/dL (70-99) Urine Collection Type U cath Urine Color Yellow Urine Clarity Cloudy Urine pH 5.0 Urine Specific [place] 1.025 Urine Protein >=300 mg/dL (NEG-TRACE) Urine Glucose (UA) 100 mg/dL (NEG) Urine Ketones (Stick) Trace mg/dL (NEG) Urine Blood Large (NEG) Urine Nitrite Negative (NEG) Urine Bilirubin Negative (NEG) Urine Urobilinogen Dipstick 0.2 mg/dL (0.2 mg/dL) Urine Leukocyte Esterase Large (NEG) Urine RBC Tntc /HPF (0-2) Urine WBC 5-10 /HPF (0-4) Urine Squamous Epithelial Cells Few /LPF Urine Bacteria Few /HPF (0-FEW) Urine Mucus Mod /LPF Test 02/14/19 06:30 02/14/19 08:15 02/14/19 09:06 Sodium Level 148 mmol/L (136-145) Potassium Level 5.1 mmol/L (3.5-5.1) Chloride Level 115 mmol/L (98-107) Carbon Dioxide Level 17 mmol/L (21-32) Anion Gap 16 (6-14) Blood Urea Nitrogen 48 mg/dL (7-20) Creatinine 3.8 mg/dL (0.6-1.0) Estimated GFR (Cockcroft-Gault) 11.5 Glucose Level 165 mg/dL (70-99) Calcium Level 8.6 mg/dL (8.5-10.1) Phosphorus Level 6.5 mg/dL (2.6-4.7) Magnesium Level 2.2 mg/dL (1.8-2.4) O2 Saturation 96 % (92-99) Arterial Blood pH 7.21 (7.35-7.45) Arterial Blood pCO2 at Patient Temp 39 mmHg (35-46) Arterial Blood pO2 at Patient Temp 94 mmHg (65-108) Arterial Blood HCO3 16 mmol/L (21-28) Arterial Blood Base Excess -12 mmol/L (-3-3) FiO2 50 Glucose (Fingerstick) 171 mg/dL (70-99) Laboratory Tests Test 02/13/19 21:20 02/14/19 00:16 02/14/19 06:30 02/14/19 08:15 Urine Collection Type U cath Urine Color Yellow Urine Clarity Cloudy Urine pH 5.0 Urine Specific [place] 1.025 Urine Protein >=300 mg/dL (NEG-TRACE) Urine Glucose (UA) 100 mg/dL (NEG) Urine Ketones (Stick) Trace mg/dL (NEG) Urine Blood Large (NEG) Urine Nitrite Negative (NEG) Urine Bilirubin Negative (NEG) Urine Urobilinogen Dipstick 0.2 mg/dL (0.2 mg/dL) Urine Leukocyte Esterase Large (NEG) Urine RBC Tntc /HPF (0-2) Urine WBC 5-10 /HPF (0-4) Urine Squamous Epithelial Cells Few /LPF Urine Bacteria Few /HPF (0-FEW) Urine Mucus Mod /LPF Glucose (Fingerstick) 150 mg/dL (70-99) Sodium Level 148 mmol/L (136-145) Potassium Level 5.1 mmol/L (3.5-5.1) Chloride Level 115 mmol/L (98-107) Carbon Dioxide Level 17 mmol/L (21-32) Anion Gap 16 (6-14) Blood Urea Nitrogen 48 mg/dL (7-20) Creatinine 3.8 mg/dL (0.6-1.0) Estimated GFR (Cockcroft-Gault) 11.5 Glucose Level 165 mg/dL (70-99) Calcium Level 8.6 mg/dL (8.5-10.1) Phosphorus Level 6.5 mg/dL (2.6-4.7) Magnesium Level 2.2 mg/dL (1.8-2.4) O2 Saturation 96 % (92-99) Arterial Blood pH 7.21 (7.35-7.45) Arterial Blood pCO2 at Patient Temp 39 mmHg (35-46) Arterial Blood pO2 at Patient Temp 94 mmHg (65-108) Arterial Blood HCO3 16 mmol/L (21-28) Arterial Blood Base Excess -12 mmol/L (-3-3) FiO2 50 Test 02/14/19 09:06 Glucose (Fingerstick) 171 mg/dL (70-99) Medications Active Scripts Medications Dose Route/Sig Max Daily Dose Days Date Category Dose Instructions Feosol (Ferrous Sulfate) 325 Mg Tablet 325 Mg PO [id number] 30 05/27/18 Rx Benzonatate 100 Mg Capsule 100 Mg PO [id number] 7 05/27/18 Rx Amlodipine Besylate 10 Mg Tablet 10 Mg PO DAILY 30 05/27/18 Rx Tradjenta (Linagliptin) 5 Mg Tablet 5 Mg PO DAILY 05/24/18 Reported Vitamin D3 (Cholecalciferol (Vitamin D3)) 1,000 Unit Tablet 1 Tab PO DAILY 05/24/18 Reported Trazodone Hcl 150 Mg Tablet 150 Mg PO HS 05/24/18 Reported Aspirin Ec (Aspirin) 325 Mg Tablet.dr 1 Tab PO DAILY 05/24/18 Reported Metoprolol Tartrate 25 Mg Tablet 1 Tab PO BID 11/21/14 Reported NEW MEDICATION BEGINNING 11/21/2014 PM DOSE MONITOR BLOOD PRESSURE DAILY Losartan Potassium 100 Mg Tablet 1 Tab PO DAILY 11/20/14 Reported Simvastatin 40 Mg Tablet 40 Mg PO DAILY 11/20/14 Reported Hydrocodone-Apap 10-325 (Hydrocodone Bit/Acetaminophen) 1 Each Tablet 1 Tab PO Q8HRS PRN 11/20/14 Reported Comments CXR 02/13 improving bilateral infiltrates, R>L / CHF Doppler US of legs negative Perfusion scan low probability Impression . 1. Acute hypoxic respiratory failure secondary to pneumonia and contribution of fluid overload 2. s/p cardiac arrest with possible/likely multiorgan ischemic injury 3.CKD worsened by cardiac arrest. 4. Sepsis 5. Abnormal cxr c/w CHF 6. Metabolic acidosis due to FOZIA Plan . 1. Continue mechanical ventilatory support. 2. Agree with broad antibiotics covering GNR and Staph 3. prn lasix 4. patient has positive blood culture, identification pending , ID to follow 5. wean off propofol and assess MS later 6. May need HD if fmaily wants aggressive care 7. poor prognosis d/w RN/ family/ JENNIFER MENON MD Feb 14, 2019 12:05
--- NOTE | 2019-02-14 13:08 | PDOC ---
Renal-Progress Notes Subjective Notes Notes INTUBATED History of Present Illness Hx of present illness NO CHANGE Vitals Vitals Vital Signs Date Time Temp Pulse Resp B/P (MAP) Pulse Ox O2 Delivery O2 Flow Rate FiO2 02/14/19 12:02 100 Ventilator 02/14/19 11:00 83 19 131/54 (79) 02/14/19 10:00 97.9 97.9 Weight Weight [ ] I.O. Intake and Output Intake and Output 02/14/19 07:00 Intake Total 742 ml Output Total 210 ml Balance 532 ml IV Total 176 ml Tube Feeding 466 ml Other 100 ml Output Urine Total 210 ml Gastric Drainage Total 0 ml Labs Labs Laboratory Tests Test 02/13/19 21:20 02/14/19 00:16 02/14/19 06:30 02/14/19 08:15 Urine Collection Type U cath Urine Color Yellow Urine Clarity Cloudy Urine pH 5.0 Urine Specific [place] 1.025 Urine Protein >=300 mg/dL (NEG-TRACE) Urine Glucose (UA) 100 mg/dL (NEG) Urine Ketones (Stick) Trace mg/dL (NEG) Urine Blood Large (NEG) Urine Nitrite Negative (NEG) Urine Bilirubin Negative (NEG) Urine Urobilinogen Dipstick 0.2 mg/dL (0.2 mg/dL) Urine Leukocyte Esterase Large (NEG) Urine RBC Tntc /HPF (0-2) Urine WBC 5-10 /HPF (0-4) Urine Squamous Epithelial Cells Few /LPF Urine Bacteria Few /HPF (0-FEW) Urine Mucus Mod /LPF Glucose (Fingerstick) 150 mg/dL (70-99) Sodium Level 148 mmol/L (136-145) Potassium Level 5.1 mmol/L (3.5-5.1) Chloride Level 115 mmol/L (98-107) Carbon Dioxide Level 17 mmol/L (21-32) Anion Gap 16 (6-14) Blood Urea Nitrogen 48 mg/dL (7-20) Creatinine 3.8 mg/dL (0.6-1.0) Estimated GFR (Cockcroft-Gault) 11.5 Glucose Level 165 mg/dL (70-99) Calcium Level 8.6 mg/dL (8.5-10.1) Phosphorus Level 6.5 mg/dL (2.6-4.7) Magnesium Level 2.2 mg/dL (1.8-2.4) O2 Saturation 96 % (92-99) Arterial Blood pH 7.21 (7.35-7.45) Arterial Blood pCO2 at Patient Temp 39 mmHg (35-46) Arterial Blood pO2 at Patient Temp 94 mmHg (65-108) Arterial Blood HCO3 16 mmol/L (21-28) Arterial Blood Base Excess -12 mmol/L (-3-3) FiO2 50 Test 02/14/19 09:06 Glucose (Fingerstick) 171 mg/dL (70-99) Micro Micro Microbiology 02/11/19 Blood Culture - Preliminary, Resulted NO GROWTH AFTER 3 DAYS Review of Systems Constitutional: yes: unresponsive Physical Exam General Appearance: no apparent distress Skin: warm Respiratory: decreased breath sounds Heart: S1S2 Abdomen: soft, bowel sounds present Genitourinary: bladder flat Extremities: pulses present, no edema Neurology: other (ON THE VENT) Musculoskeletal: Other (fractures) Assessment Assessment IMP FOZIA-ATN WORSE WITH CR UP TO 3.8-OLIGOANURIC CKD STAGE 3 WITH CR OF 1.5-1.8 S/P CARDIAC ARREST SEPSIS ACUTE HYPOXIC RESP FAILURE MET ACIDOSIS ANOXIC ENCEPHALOPATHY PLAN ANTIBIOTICS S/P HYPOTHERMIA PROTOCOL IVF'S AND PRN LASIX HCO3 GTT POOR PROGNOSIS D/W DR MARTINEZ D/W FAMILY WILL HOLD OFF ON DIALYSIS NEUROLOGY FOLLOWING D/W DR CARROLL WILL FOLLOW ALEXIS TRAN MD Feb 14, 2019 13:08
--- NOTE | 2019-02-14 15:01 | PDOC2 ---
PALLIATIVE CARE Palliative Care Note Palliative Care Consult requested by Dr. Gabriel to address goals of care. Medical Assessment per medical record 1. Acute hypoxic respiratory failure secondary to pneumonia and contribution of fluid overload 2. s/p cardiac arrest with possible/likely multiorgan ischemic injury 3.CKD worsened by cardiac arrest. 4. Sepsis 5. Abnormal cxr c/w CHF 6. Metabolic acidosis due to FOZIA 1330 Per Marlys FIERROfamily and consumer sciences professor is requesting to transition to comfort care. Dr. Gabriel has been paged for orders. Met with Samia PHIPPS. Reviewed procedure for changes to allow natural . Acknowledges understanding. KEON MEYERS Feb 14, 2019 15:01
[2019-02-14] MEDS ORDERED: MORPHINE SULFATE 2 MG/ML VIAL. IV PRN (15:15)
[2019-02-14] MEDS ORDERED: MORPHINE SULFATE 4 MG/ML VIAL. IV ONE (15:15)
[2019-02-14] MEDS ORDERED: GLYCOPYRROLATE 1 MG/5 ML VIAL. IV PRN (17:15)
== END 2019-02-14 18:09 | disposition expired | DRG 871 ==
LOC: ER 11:20 → 1 WEST ICU 11:43
PROVIDERS: ADMIT Internal Medicine; ATTEND Internal Medicine
PROC: 5A1945Z Respiratory Ventilation, 24-96 Consecutive Hours (ICD-10-PCS; principal; 2019-02-11)
PROC: 0BH17EZ Insertion of Endotracheal Airway into Trachea, Via Natural or Artificial Opening (ICD-10-PCS; 2019-02-11)
PROC: 5A12012 Performance of Cardiac Output, Single, Manual (ICD-10-PCS; 2019-02-11)
DX: A41.9 Sepsis, unspecified organism (principal); J96.01 Acute respiratory failure with hypoxia; G92 Toxic encephalopathy; N17.0 Acute kidney failure with tubular necrosis; J18.9 Pneumonia, unspecified organism; E44.0 Moderate protein-calorie malnutrition; E87.4 Mixed disorder of acid-base balance; G93.1 Anoxic brain damage, not elsewhere classified; I13.0 Hypertensive heart and chronic kidney disease with heart failure and stage 1 through stage 4 chronic kidney disease, or unspecified chronic kidney disease; D64.9 Anemia, unspecified; E11.22 Type 2 diabetes mellitus with diabetic chronic kidney disease; E11.649 Type 2 diabetes mellitus with hypoglycemia without coma; E11.65 Type 2 diabetes mellitus with hyperglycemia; E78.5 Hyperlipidemia, unspecified; G47.30 Sleep apnea, unspecified; G93.89 Other specified disorders of brain; H54.8 Legal blindness, as defined in USA; I50.9 Heart failure, unspecified; N18.3 Chronic kidney disease, stage 3 (moderate); R65.20 Severe sepsis without septic shock; I25.10 Atherosclerotic heart disease of native coronary artery without angina pectoris; Y95 Nosocomial condition; Z66 Do not resuscitate; Z82.49 Family history of ischemic heart disease and other diseases of the circulatory system; Z85.828 Personal history of other malignant neoplasm of skin; Z86.73 Personal history of transient ischemic attack (TIA), and cerebral infarction without residual deficits; Z85.43 Personal history of malignant neoplasm of ovary; Z88.1 Allergy status to other antibiotic agents; Z90.49 Acquired absence of other specified parts of digestive tract; Z90.710 Acquired absence of both cervix and uterus; Z96.659 Presence of unspecified artificial knee joint; Z99.81 Dependence on supplemental oxygen; Z88.8 Allergy status to other drugs, medicaments and biological substances; Z79.899 Other long term (current) drug therapy
CPT/HCPCS: 31500; 36415; 36600; 70450; 71045; 78580; 80048; 80053; 81001; 82550; 82565; 82805; 82962; 83605; 83690; 83735; 83880; 84100; 84145; 84484; 85025; 85379; 85384; 85610; 85730; 87040; 87070; 87086; 87205; 87449; 87641; 93005; 93306; 93970; 94002; 94003; 94640; 96361; 96365; 96374; 96375; 99292; A9540; C9113; J0171; J1644; J1815; J1940; J2060; J2250; J2270; J2543; J2704; J3010; J3370; J3475; J3490; J7030; J7040; 99291-25; G0378